=== PATIENT | female | born 1950 | race Caucasian/White ===

== ENCOUNTER 2020-06-26 21:24 | Observation (INO) | payer MEDICARE, SELFPAY ==
--- NOTE | 2020-06-26 21:20 | ECG_ITS ---
APPROVED REPORT Exam: Resting ECG HR:80 bpm ECG Measurements Heart Rate 80 AXES SC 206 P 22 QRSd 80 QRS 14 QT 378 T 30 QTc 435 Conclusion Normal sinus rhythm Nonspecific T wave abnormality Abnormal ECG Electronically signed by : Sebastian Alves, 06/28/2020 13:50:20
[2020-06-26 21:24] VITALS: BP 146/70; PULSE 74; RESP 16; TEMP 36.6; O2SAT 94; BMI 43.0
--- NOTE | 2020-06-26 21:26 | XR_ITS ---
PROCEDURE: XR CHEST 2V CLINICAL HISTORY: chest pain COMPARISON: No exams were available for comparison FINDINGS: The cardiomediastinal silhouette and pulmonary vascularity are within normal limits. The lungs are clear without infiltrates, suspicious nodules, or pleural effusions. There is mild wedging involving T8 vertebral body age indeterminate. There is loss of height anteriorly of approximately 30-40 percent IMPRESSION: MRI may provide further evaluation to determine the age of this finding. No obvious retropulsion. Otherwise negative Dictated by: Kentrell Green MD 06/27/2020 05:50 Kentrell Green MD in [place] 06/27/2020 05:50
[2020-06-26 21:35] LABS: Basophils # 0.1 K/mm3 (0-0.2); Basophils % 0.5 % (0.1-2.0); Eosinophils # 0.2 K/mm3 (0.0-0.4); Eosinophils % 1.8 % (0.1-12.0); Hematocrit 41.2 % (37.0-47.0); Hemoglobin 13.2 g/dL (12.2-16.2); Lymphocytes # 3.3 K/mm3 (0.7-4.5); Lymphocytes % 34.3 % (10-50); Mean Corpuscular HGB Conc 32.1 g/dL (31.8-35.4); Mean Corpuscular Hemoglobin 32.1 pg (27.0-31.2); Mean Platelet Volume 8.5 fl (7.4-10.4); Monocytes # 0.7 K/mm3 (0.1-1.0); Monocytes % 7.1 % (1.7-9.3); Neutrophils # 5.4 K/mm3 (1.8-7.8); Neutrophils % 56.3 % (37.0-80.0); Platelet Count 210 K/mm3 (142-424); Red Blood Count 4.12 M/mm3 (4.20-5.40); Red Cell Distribution Width 12.7 % (11.5-17.5); White Blood Count 9.6 K/mm3 (4.8-10.8)
--- NOTE | 2020-06-26 21:41 | HMH.EDCP ---
ED Disposition Clinical Impression: Renal insufficiency Chest pain Qualifiers: Chest pain type: precordial pain Qualified Code(s): R07.2 - Precordial pain Obesity Qualifiers: Obesity type: due to excess calories Obesity classification: adult class 3 (BMI >= 40) Serious obesity comorbidity presence: with serious comorbidity Body mass index: BMI 40.0-44.9 Qualified Code(s): E66.01 - Morbid (severe) obesity due to excess calories; Z68.41 - Body mass index [BMI]40.0-44.9, adult Disposition: Admitted as Observation Condition on Discharge: Good Referrals: Provider,Referral, [Referring] - - Critical Care Critical Care Time: No Attestation: On 06/26/20, the high probability of a clinically significant, sudden or life threatening deterioration of the following system(s) required my full and direct attention, intervention and personal management. The time I documented below is in addition to time spent performing reported procedures but includes the following listed in this critical care notation. Medical Decision Making - Medical Records Medical records reviewed: Yes: I reviewed the patient's medical records. - Kendrick Inquiry Pt receiving controlled substance: No Vital Signs: 06/26/20 21:24 Temperature 97.8 F Temperature Source Oral Pulse Rate [Left Radial] 74 Respiratory Rate 16 Blood Pressure [Right Arm] 146/70 H Blood Pressure Mean [Right Arm] 95 Blood Pressure Source [Right Arm] Automatic Cuff Blood Pressure Position [Right Arm] Sitting 02 Sat by Pulse Oximetry 94 L Oxygen Delivery Method Room Air - Lab Data Lab results reviewed: Yes: I reviewed the patient's lab results. Lab Results 06/26/20 21:25: WBC 9.6, RBC 4.12 L, Hgb 13.2, Hct 41.2, MCV 100.0 H, MCH 32.1 H, MCHC 32.1, RDW 12.7, Plt Count 210, MPV 8.5, Neut % (Auto) 56.3, Lymph % (Auto) 34.3, [place] % (Auto) 7.1, Eos % (Auto) 1.8, Baso % (Auto) 0.5, Neut # (Auto) 5.4, Lymph # (Auto) 3.3, [place] # (Auto) 0.7, Eos # (Auto) 0.2, Baso # (Auto) 0.1 06/26/20 21:25: Sodium 138, Potassium 4.0, Chloride 102, Carbon Dioxide 30, Anion Gap 10.0, BUN 22 H, Creatinine 1.10 H, Estimated Creat Clear 40, Estimated GFR 49 L, Est GFR ( Amer) 60, Glucose 124 H, Calcium 9.5, Troponin I < 0.01 Result diagrams: 06/26/20 21:25 06/26/20 21:25 Orders (Tests/Meds): ED MEDICATIONS Generic Name Dose Route Start Last Admin Trade Name Freq PRN Reason Stop Dose Admin Sodium Chloride 1,000 mls @ 999 mls/hr 06/26/20 21:45 06/26/20 21:43 Sod Chlor 0.9% 1000ml Bag IV 06/26/20 22:45 999 mls/hr .Q1H1M DOUGIE Administration Discontinued Medications Generic Name Dose Route Start Last Admin Trade Name Freq PRN Reason Stop Dose Admin Aspirin 243 mg 06/26/20 21:35 06/26/20 21:42 Aspirin 81mg Chewable Tablet PO 06/26/20 21:36 243 mg ONCE ONE Administration Nitroglycerin 0.4 mg 06/26/20 21:36 06/26/20 21:43 Nitroglycerin 0.4mg Sl Tablet SL 06/26/20 21:37 0.4 mg ONCE ONE Administration ORDERS Category Date Time Status XR chest 2V Stat Exams 06/26/20 21:26 Taken Troponin I Q3H Lab 06/27/20 00:30 Ordered Troponin I Q3H Lab 06/27/20 03:30 Ordered - Radiology Data #1 Image(s): Chest Image Reviewed: Yes I reviewed the patient's radiology image Preliminary Findings: Normal/NAD - ECG Data Tracing #1 Normal Sinus Rhythm: Yes Ischemic changes: non-specific ST-T wave changes - Physician Consults Physician Consulted: rachel Reason -: Admission Chest Pain HPI - General Chief Complaint: Chest Pain Stated Complaint: chest pain Time Seen by Provider: 06/26/20 21:35 Mode of Arrival: Ambulatory Source of Information: Patient, Medical Record Limitations: No Limitations Description of Symptoms (Recalled from ER Triage Doc. by RN): pt c/o chest pain for the last hour and a half. pt describes her pain as an aching sensation at the cente of her chest - History of Present Illness HPI narrative: acute onset of mi
[2020-06-26 21:44] LABS: Chloride 102 mmol/L (98-107); Sodium 138 mmol/L (136-145)
[2020-06-26 21:47] LABS: Blood Urea Nitrogen 22 mg/dl (7-17); Calcium 9.5 mg/dl (8.4-10.2); Carbon Dioxide 30 mmol/L (22.0-30.0); Creatinine Clearance Estimated 40 mL/min (50-200); Estimated Glomerular Filt Rate 49 ml/min (>60); GFR (African American) 60 ML/MIN (>60); Glucose 124 mg/dl (74-100)
[2020-06-26 22:02] VITALS: BP 96/51; PULSE 62; RESP 16; O2SAT 97
[2020-06-26 22:16] LABS: Troponin I < 0.01 ng/ml (0.00-0.034)
[2020-06-26 22:24] VITALS: BP 134/72; PULSE 84; RESP 16; O2SAT 95
--- NOTE | 2020-06-26 22:43 | PC.NURSE ---
spoke with Dr. Childress for admission
[2020-06-26 22:53] VITALS: BP 98/50; PULSE 78; RESP 16; O2SAT 94
--- NOTE | 2020-06-26 23:03 | PC.NURSE ---
Patient assigned to 210
--- NOTE | 2020-06-26 23:23 | PC.NURSE ---
report given to RENNY Walker
--- NOTE | 2020-06-26 23:36 | PC.NURSE ---
patient up to floor via wheelchair
[2020-06-26 23:44] LABS: Coronavirus 19 IgG Antibody Negative (Negative); Coronavirus 19 IgM Antibody Negative (Negative)
[2020-06-26 23:55] VITALS: BP 98/53; PULSE 78; RESP 16; TEMP 36.6; O2SAT 98
[2020-06-27] VITALS (22 sets, daily range): BP systolic 86–146; BP diastolic 53–72; PULSE 53–71; RESP 16–20; TEMP 36.5–36.9; O2SAT 92–100; BMI 43.3
--- NOTE | 2020-06-27 | IR_ITS ---
APPROVED REPORT Patient Location: Inpatient [place]: LEAH Arriola RT (R) PROCEDURES Left heart catheterization Left ventriculogram Selective coronary angiogram INDICATION Unstable angina Informed consent was obtained prior to the procedure. COMPLICATIONS None Estimated Blood Loss: less than 10ml TECHNIQUE One percent lidocaine used to anesthetize the right anterior aspect of the wrist. The right radial artery was accessed via the Seldinger technique. A 6 Pashto sheath was placed in the right radial artery. 2.5 mg of verapamil, 800 mcg of nitroglycerin, 1mg Lidocaine and 5000 U Heparin were given through the arterial sheath. The trap catheter was also used to perform left heart catheterization, left ventriculogram and selective coronary angiogram. At the end of the procedure the sheath was removed good hemostasis was achieved using Traclet band, patient was transferred to the postop holding area in stable condition. ANGIOGRAPHIC RESULTS The left main artery Normal The left anterior descending artery Has mild 10% diffuse luminal irregularities The circumflex artery Nondominant with mild 10% luminal irregularities The right coronary artery Dominant with mild proximal 10 to 20% stenosis The HODGSON ventriculogram reveals Normal 65% The left ventricular end-diastolic pressure 10 mmHg IMPRESSION Mild [id number] coronary disease Normal ejection fraction Normal left ventricular end-diastolic pressure PLAN 1. Medical management Electronically signed by : Byron Damon, 06/27/2020 14:12:30
[2020-06-27 01:19] LABS: Troponin I < 0.01 ng/ml (0.00-0.034)
--- NOTE | 2020-06-27 03:15 | PC.NURSE ---
pt A&OX4. lungs CTA pt denies SOA or pain since arriving to floor. NSR on tele. 2+ pitting edema to BLE. pt ambulates independently to BR.
[2020-06-27 03:59] LABS: Troponin I < 0.01 ng/ml (0.00-0.034)
[2020-06-27 06:52] LABS: Basophils # 0.1 K/mm3 (0-0.2); Basophils % 0.8 % (0.1-2.0); Eosinophils # 0.1 K/mm3 (0.0-0.4); Hematocrit 39.4 % (37.0-47.0); Hemoglobin 12.6 g/dL (12.2-16.2); Lymphocytes # 2.4 K/mm3 (0.7-4.5); Mean Corpuscular HGB Conc 31.9 g/dL (31.8-35.4); Mean Corpuscular Volume 100.4 fl (81-99); Mean Platelet Volume 8.3 fl (7.4-10.4); Monocytes # 0.4 K/mm3 (0.1-1.0); Monocytes % 6.4 % (1.7-9.3); Neutrophils # 3.4 K/mm3 (1.8-7.8); Neutrophils % 53.8 % (37.0-80.0); Platelet Count 202 K/mm3 (142-424); Red Blood Count 3.92 M/mm3 (4.20-5.40); Red Cell Distribution Width 12.7 % (11.5-17.5); White Blood Count 6.4 K/mm3 (4.8-10.8)
[2020-06-27 06:58] LABS: Chloride 106 mmol/L (98-107); Sodium 140 mmol/L (136-145)
[2020-06-27 07:01] LABS: Blood Urea Nitrogen 19 mg/dl (7-17); Carbon Dioxide 30 mmol/L (22.0-30.0); Cholesterol 153 mg/dl (140-200); Creatinine Clearance Estimated 44 mL/min (50-200); Estimated Glomerular Filt Rate 55 ml/min (>60); GFR (African American) 67 ML/MIN (>60); Triglycerides 167 mg/dl (30-150); VLDL Cholesterol 33 mg/dL (0-40)
[2020-06-27 07:02] LABS: Chol/HDL Ratio 2.9 (1-3.5); Glucose 100 mg/dl (74-100); HDL Cholesterol 53 mg/dl (40-60); Magnesium 2.2 mg/dl (1.6-2.3)
--- NOTE | 2020-06-27 07:30 | PC.NURSE ---
ALL CHARTING AND CARE DONE UNDER MY DIRECT SUPERVISION
--- NOTE | 2020-06-27 07:46 | PC.NURSE ---
Radiology at bedside for echo
--- NOTE | 2020-06-27 08:00 | CA_ITS ---
APPROVED REPORT EXAM: Comprehensive 2D, Doppler, and color-flow Echocardiogram Counterperson: Shyanne Batista RDCS Ht: 5 ft 3 in Wt: 243lbs BSA: 2.10 BP: 146/70 mmHg Indications: CP,MURMUR,OBESITY 2D Dimensions LVOT 2.41 cm (M/F) 1.5-2.5 M-Mode Dimensions RVDd 3.33 cm (0.9-2.6) LVDd 5.22 cm (3.5-5.7) LVDs 4.03 cm (3.5-5.7) IVSd 0.93 cm (0.6-1.1) PWd 0.85 cm (0.6-1.1) EF (Teich) 45.40% FS 22.80% EDV (Teich) 130.70 mL ESV (Teich) 71.30 mL LV Diastology E/A Ratio 0.78 Aortic Valve LVOT Max 104.00 (70-110 cm/s) LVOT VTI 24.81 cm Mitral Valve MV A Velocity 187.00 (40-130 cm/s) MV Mean Gr. 5.40 (<2mmHg) MV PHT 167.00 ms Left Ventricle Technically difficult study because of the patient factors and poor acoustic Windows. Left atrium is moderately enlarged, left ventricle is normal size, mild concentric left ventricular hypertrophy, visually estimated ejection fraction 55% with no regional wall motion abnormality, diastolic parameters consistent with grade 1, with increased left atrial pressure. Right Ventricle Right atrium right ventricle moderately enlarged with normal contractility. Aortic Valve Aortic valve is thickened and calcified leaflet chordae display mobility, there is no aortic stenosis, there is mild aortic insufficiency. Mitral Valve Mitral valve leaflets are not well visualized, there is restriction to leaflet mobility, the mean gradient across mitral valve is 5.4 mmHg, valve area is 1.4 cm??? by pressure half-time represents moderate mitral stenosis, there is mildly mitral regurgitation, a transesophageal echocardiogram is recommended to evaluate the mitral valve morphology and degree of mitral stenosis. Tricuspid Valve Tricuspid valve grossly normal, there is mild tricuspid regurgitation, tricuspid regurgitation jet velocity is inadequate for calculation of the right ventricular systolic pressure. Pulmonic Valve Pulmonic valve is poorly visualized. Great Vessels Aortic root is normal size. Pericardium No significant pericardial effusion noted. Conclusion 1. Biatrial enlargement, normal left ventricular size, mild concentric left ventricular hypertrophy, visually estimated ejection fraction 55% with no regional wall motion abnormality, grade 1 diastolic dysfunction seen with tissue Doppler evidence of raise left atrial pressure. 2. Moderately enlarged right ventricle with normal contractility. 3. Thickened and calcified aortic valve without aortic stenosis, there is mild aortic insufficiency. 4. Mitral valve morphology is not well visualized, mitral valve area is 1.4 cm??? represents at least moderate mitral stenosis, there is mild mitral regurgitation, a transesophageal echocardiogram is recommended. 5. Mild tricuspid regurgitation, tricuspid regurgitation jet velocity is inadequate for calculation of the right ventricular systolic pressure. 6. No significant pericardial effusion noted. Electronically signed by : Anil Wilkerson, 06/27/2020 14:47:31
--- NOTE | 2020-06-27 08:10 | HMH.PHAVTE ---
[facility] Pharmacy VTE Monitoring - Patient Demographics Admission date: 06/27/20 Report Date: 06/27/20 Time: 08:10 Allergies/Adverse Reactions: Patient Allergies codeine [CODEINE] Allergy (Unknown, Verified 06/26/20 21:25) I-RASH Sulfa (Sulfonamide Antibiotics) [SULFA (SULFONAMIDE ANTIBIOTICS)] Allergy (Unknown, Verified 06/26/20 21:25) I-RASH Height: 1.6 m Weight: 110.9 kg Patient Problems: Current Active Problems Chest pain (Acute) Obesity (Acute) Renal insufficiency (Acute) - VTE Risk Labs: VTE Related Lab Results Hgb 12.6 g/dL (12.2-16.2) 06/27/20 06:05 Hct 39.4 % (37.0-47.0) 06/27/20 06:05 Plt Count 202 K/mm3 (142-424) 06/27/20 06:05 BUN 19 mg/dl (7-17) H 06/27/20 06:05 Creatinine 1.00 mg/dl (0.52-1.04) 06/27/20 06:05 Estimated Creat Clear 44 mL/min (50-200) 06/27/20 06:05 Was VTE Risk Assessment Performed: Yes VTE Score: 2 VTE Risk Level: Very Low Risk Clinical Trial Participant: No - Prophylaxis VTE Prophylaxis Ordered?: Yes Types of VTE Prophylaxis: TEDS Knee High
[2020-06-27 09:05] LABS: Thyroid Stimulating Hormone 3.93 uIU/mL (0.465-4.68)
--- NOTE | 2020-06-27 09:06 | HMH.CNCARD ---
History of Present Illness Consult date: 06/27/20 Requesting physician: Lorena Childress Consult reason: chest pain Chief complaint: chest pain Additional Medical History:: 1. Hypertension 2. History of rheumatic fever x2 3. Known cardiac murmur 4. Accelerating angina pectoris, 06/2020 5. Hyperlipidemia 6. History of pin stroke 7. Hypothyroidism, on replacement therapy History of present illness: 69-year-old white female with hypertension, hyperlipidemia and remote stroke presented to the emergency department at the advice of her family physician for further evaluation of chest pain. Patient describes a 1 to 2-month history of exertional upper shoulder and neck discomfort that would resolve after prolonged rest. Symptoms have progressed to include chest discomfort culminating in symptoms yesterday that prompted evaluation in the ER. Patient describes her chest discomfort as a heaviness or pressure type sensation anteriorly and rates it as a 7 out of 10 that resolved very quickly after nitroglycerin in the ER. EKG is sinus rhythm and troponins of normal x3. She reportedly has been in the process of getting a cardiac work-up in [facility] but has not had that completed. Cardiology consulted for evaluation recommendation [facility] History Medical History: Reports:: Heart Murmur, Hyperlipidemia, Hypertension Denies:: Cancer, Diabetes Mellitus Type 1, Diabetes Mellitus Type 2, MRSA *Have you ever received a pneumonia vaccine?: Yes *Have you received a flu vaccine this season?: Yes Other Medical History: Reports: Hypothyroidism, Thyroid Disease Other Surgeries: Yes: Tubal Ligation Amputation: No - *Social History Last grade of school completed: High school graduate Smoking Status: Never smoker Alcohol Intake: never *Occupational Status:: retired Housing: house Household Members: spouse *Travel in the last 8 weeks: None Family Hx:: Diabetes, Heart Attack, Hypertension, Stroke Meds Home Medications Medication Instructions Recorded Confirmed Type Amlodipine Besylate [Amlodipine 5 mg PO DAILY 06/26/20 06/26/20 History 5mg tab] Aspirin [Aspirin 81mg EC Tab] 81 mg PO DAILY 06/26/20 06/26/20 History Garlic [Odorless Garlic] 300 mg PO DAILY 06/26/20 06/26/20 History Levothyroxine Sodium 50 mcg PO DAILY 06/26/20 06/26/20 History [Levothyroxine 50mcg (0.05mg) Tab] Lovastatin 40 mg PO DAILY 06/26/20 06/26/20 History Metoprolol Succinate [Metoprolol 50 mg PO DAILY 06/26/20 06/26/20 History Succinate 50mg Tablet*] [place]-3 Fatty Acids/Fish Oil [Fish 1 each PO DAILY 06/26/20 06/26/20 History Oil 1,000 mg Capsule] hydroCHLOROthiazide 12.5 mg PO DAILY 06/26/20 06/26/20 History [Hydrochlorothiazide 12.5mg Tab] lisinopriL [Lisinopril 40mg Tablet] 40 mg PO DAILY 06/26/20 06/26/20 History Allergies Allergy/AdvReac Type Severity Reaction Status Date / Time codeine [CODEINE] Allergy Unknown I-RASH Verified 06/26/20 21:25 Sulfa (Sulfonamide Allergy Unknown I-RASH Verified 06/26/20 21:25 Antibiotics) [SULFA (SULFONAMIDE ANTIBIOTICS)] Exam Vital signs and Labs for Last 24 Hours: Temp Pulse Resp BP Pulse Ox 97.7 F 63 17 128/71 98 06/27/20 07:54 06/27/20 07:54 06/27/20 07:54 06/27/20 07:54 06/27/20 07:54 Laboratory Results - last 24 hr 06/26/20 21:25: WBC 9.6, RBC 4.12 L, Hgb 13.2, Hct 41.2, MCV 100.0 H, MCH 32.1 H, MCHC 32.1, RDW 12.7, Plt Count 210, MPV 8.5, Neut % (Auto) 56.3, Lymph % (Auto) 34.3, [place] % (Auto) 7.1, Eos % (Auto) 1.8, Baso % (Auto) 0.5, Neut # (Auto) 5.4, Lymph # (Auto) 3.3, [place] # (Auto) 0.7, Eos # (Auto) 0.2, Baso # (Auto) 0.1 06/26/20 21:25: Sodium 138, Potassium 4.0, Chloride 102, Carbon Dioxide 30, Anion Gap 10.0, BUN 22 H, Creatinine 1.10 H, Estimated Creat Clear 40, Estimated GFR 49 L, Est GFR ( Amer) 60, Glucose 124 H, Calcium 9.5, Troponin I < 0.01 06/26/20 21:25: SARS-CoV-2 IgG Ab (Rapid) Negative, SARS-CoV-2 IgM Ab (Rapid)
--- NOTE | 2020-06-27 09:51 | HMH.HP ---
*Admission Date: 06/27/20 *Chief complaint: Chest pain *History of present illness: This 69-year-old white female is a patient of Dr. Ambrose in [place]. She developed chest pain last night which lasted from 7:30 PM to about 10:00. She talked to Dr. Gonzalez who recommended that she come to the emergency room. She was supposed to have a cardiac work-up at [facility] but her chest pain last night preempted this. She describes her pain last night is midsternal pressure heavy with nausea but no vomiting. She was not short of breath. She did not have referral of the pain to the neck or jaw. She did not have diaphoresis. She has a very strong family history of heart disease. She is not a smoker. She is hypothyroid. She is admitted and has been seen by cardiology. She has agreed to cardiac catheterization at [facility]. [facility] History Medical History: Reports:: Heart Murmur, Hepatitis (Hepatitis A), Hyperlipidemia, Hypertension Denies:: Cancer, Diabetes Mellitus Type 1, Diabetes Mellitus Type 2, MRSA, Myocardial Infarction *Have you ever received a pneumonia vaccine?: Yes *Have you received a flu vaccine this season?: Yes Other Medical History: Reports: Cataracts, Hypothyroidism, Thyroid Disease Other Surgeries: Yes: Cholecystectomy, Tubal Ligation Amputation: No - *Social History Last grade of school completed: High school graduate Smoking Status: Never smoker Alcohol Intake: never *Occupational Status:: retired Housing: house Household Members: spouse *Travel in the last 8 weeks: None Family Hx:: Cancer (Sister of lung cancer brother of throat cancer), Coronary Artery Disease (Sister and brother both with heart disease.), Diabetes, Heart Attack, Hypertension, Stroke, Other (Father of cirrhosis of the liver. 1 son has had a heart attack), no Asthma (Mother with emphysema) : 2 Para: 2 Review of Systems - Constitutional Reports lack of energy, Denies body ache(s), Denies chills, Denies weight gain, Denies weight loss - Eyes Reports blurry vision (Cataracts) - ENT Denies neck lump - *Cardiovascular Reports chest pain, Denies rapid, pounding, or irregular heartbeat, Denies radiating jaw, neck or arm pain - *Respiratory Denies chest congestion - *Gastrointestinal Reports loose stools, Reports incontinent of stools - *Genitourinary Reports frequent nighttime urination, Reports urinary incontinence - *Musculoskeletal Reports joint pain, Reports other Comments: Past injury to the right index finger. - *Neurologic Denies seizure-like activity - Hematologic/Lymphatic Denies easy bruising Meds Home Medications Medication Instructions Recorded Confirmed Type Amlodipine Besylate [Amlodipine 5 mg PO DAILY 06/26/20 06/26/20 History 5mg tab] Aspirin [Aspirin 81mg EC Tab] 81 mg PO DAILY 06/26/20 06/26/20 History Garlic [Odorless Garlic] 300 mg PO DAILY 06/26/20 06/26/20 History Levothyroxine Sodium 50 mcg PO DAILY 06/26/20 06/26/20 History [Levothyroxine 50mcg (0.05mg) Tab] Lovastatin 40 mg PO DAILY 06/26/20 06/26/20 History Metoprolol Succinate [Metoprolol 50 mg PO DAILY 06/26/20 06/26/20 History Succinate 50mg Tablet*] [place]-3 Fatty Acids/Fish Oil [Fish 1 each PO DAILY 06/26/20 06/26/20 History Oil 1,000 mg Capsule] hydroCHLOROthiazide 12.5 mg PO DAILY 06/26/20 06/26/20 History [Hydrochlorothiazide 12.5mg Tab] lisinopriL [Lisinopril 40mg Tablet] 40 mg PO DAILY 06/26/20 06/26/20 History Allergies Allergy/AdvReac Type Severity Reaction Status Date / Time codeine [CODEINE] Allergy Unknown I-RASH Verified 06/26/20 21:25 Sulfa (Sulfonamide Allergy Unknown I-RASH Verified 06/26/20 21:25 Antibiotics) [SULFA (SULFONAMIDE ANTIBIOTICS)] Exam Vital signs and Labs for Last 24 Hours: Temp Pulse Resp BP Pulse Ox 97.7 F 63 17 128/71 98 06/27/20 07:54 06/27/20 07:54 06/27/20 07:54 06/27/20 07:54 06/27/20 08:3
--- NOTE | 2020-06-27 10:24 | HMH.PHAINT ---
MEDICATION RECONCILIATION COMPLETED ON PATIENT USING EXTERNAL FILL HISTORY FROM PHARMACY. -MARIA T HARRIS, ERID
--- NOTE | 2020-06-27 13:45 | PC.NURSE ---
OFF UNIT TO PASSENGER SCREENER
--- NOTE | 2020-06-27 14:35 | PC.NURSE ---
PATIENT UP TO THE FLOOR AT THIS TIME. FLAT IN BED. NO DISTRESS NOTED. IV INFUSING. RIGHT DEVICE ON RIGHT HAND NOTED. NO BRUISING OR SWELLING.
--- NOTE | 2020-06-27 16:10 | PC.NURSE ---
Patient had heart cath this afternoon. Vitals stable post procedure and still monitoring. Lungs clear bilaterally in all [place] and bowel sounds normoactive. Edema present in lower extremities, +2 pitting but no change since morning assessment.
--- NOTE | 2020-06-27 17:35 | PC.NURSE ---
DIAL AND WRISTLET REMOVED AT THIS TIME. STERILE DRESSING APPLIED. NO BLEEDING NOW. MINIMAL BLEEDING NOTED AROUND HANDS. PULSES 2+ AND CAP REFLIX <3
[2020-06-28] VITALS: BP 103/51; PULSE 55; PULSE 63; RESP 16; TEMP 36.5; O2SAT 94
[2020-06-28 03:54] VITALS: BP 113/58; PULSE 61; RESP 16; TEMP 36.7; O2SAT 93
--- NOTE | 2020-06-28 03:56 | PC.NURSE ---
shift summary, no acute changes since prior assessment, pt has rested well t/o shift, no complaints of chest pain, SOA, N/V or diaphoresis, pt systolic BP has remained between 102-113, HR from 61-71, pt has ambulated to BR without complaint
[2020-06-28 04:00] VITALS: PULSE 60
[2020-06-28 05:01] VITALS: BMI 43.4
--- NOTE | 2020-06-28 07:57 | P.PN_ITS ---
Subjective Date: 06/28/20 Time: 07:57 Principal diagnosis: Moderate mitral stenosis Interval history: 69-year-old white female in bed in no acute distress. Denies any chest pain, pressure or tightness. Exam Vital signs and Labs for Last 24 Hours: Temp Pulse Resp BP Pulse Ox 98.0 F 60 16 113/58 L 93 L 06/28/20 03:54 06/28/20 04:00 06/28/20 03:54 06/28/20 03:54 06/28/20 03:54 Laboratory Results - last 24 hr 06/27/20 06:05: TSH 3.93 I & O for Last 24 hours: Intake & Output 06/25/20 06/26/20 06/27/20 06/28/20 11:59 11:59 11:59 11:59 Intake Total 1260 / 1260 875 / 875 Balance 1260 / 1260 875 / 875 Weight 244 lb 7.882 oz 245 lb 2.464 oz - *Routine HEENT Exam Head: Present: normocephalic Eye: Present: EOMI, PERRL ENT: Present: mucous membranes moist - *Routine Respiratory Exam Present: CTA bilaterally - *Routine Cardiovascular Exam Present: RRR, murmur - *Routine Extremities Exam Absent: cyanosis, clubbing, edema - *Routine Neurological Exam Present: alert, oriented X3 Progress Note: A&P (1) Accelerating angina Status: Acute (2) Hypertension Status: Acute (3) Hyperlipidemia Status: Acute (4) Remote history of stroke Status: Acute (5) Cardiac murmur, unspecified Status: Acute (6) Mitral valve stenosis, moderate Status: Acute Assessment and Plan for All Diagnoses:: Patient stable from a cardiac standpoint for discharge home when appropriate by PCP. Follow-up in our office in [address] PARKS to discuss scheduling of transeso phageal echocardiogram. Home medication recommendations: Aspirin 81 mg daily Lisinopril 40 mg daily Hydrochlorothiazide 25 mg daily Metoprolol succinate XL 50 mg daily Pravastatin 40 mg daily
[2020-06-28 08:00] VITALS: BP 122/67; PULSE 68; PULSE 70; RESP 18; TEMP 36.5; O2SAT 96
--- NOTE | 2020-06-28 09:29 | HMH.ACPN2 ---
Internal Medicine - PN: Subj *Date: 06/28/20 *Time: 09:29 Interval history: She is well. See the cath report. See the cardiology report. Cardiology recommends discharge with follow-up. There was no stent placed. Coronaries showed noncritical disease. It was also recommended that she discontinue amlodipine and increase hydrochlorothiazide. Exam Vital signs and Labs for Last 24 Hours: Temp Pulse Resp BP Pulse Ox 97.7 F 68 18 122/67 96 06/28/20 08:00 06/28/20 08:00 06/28/20 08:00 06/28/20 08:00 06/28/20 08:00 I & O for Last 24 hours: Intake & Output 06/25/20 06/26/20 06/27/20 06/28/20 11:59 11:59 11:59 11:59 Intake Total 1260 / 1260 1235 / 1235 Balance 1260 / 1260 1235 / 1235 Weight 244 lb 7.882 oz 245 lb 2.464 oz - Constitutional no acute distress - *Routine HEENT Exam Head: Present: normocephalic Eye: Present: PERRL - *Routine Respiratory Exam Present: CTA bilaterally - *Routine Cardiovascular Exam Present: RRR - *Routine Abdominal Exam Present: soft, obese. Absent: tenderness - *Routine Extremities Exam Present: edema Assessment and Plan (1) Accelerating angina Status: Acute Category: Medical Code(s): I20.0 - Unstable angina (2) Hypertension Status: Acute Category: Medical Code(s): I10 - Essential (primary) hypertension (3) Hyperlipidemia Status: Acute Category: Medical Code(s): E78.5 - Hyperlipidemia, unspecified (4) Remote history of stroke Status: Acute Category: Medical Code(s): Z86.73 - Personal history of transient ischemic attack (TIA), and cerebral infarction without residual deficits (5) Cardiac murmur, unspecified Status: Acute Category: Medical Code(s): R01.1 - Cardiac murmur, unspecified (6) Mitral valve stenosis, moderate Status: Acute Category: Medical Code(s): I05.0 - Rheumatic mitral stenosis - Assessment and plan all Dx Assessment and Plan for all problems:: See med list. The patient will be discharged today. She is to follow-up with Dr. PARKS in 1 week. I recommended that she contact her primary care provider today to arrange for follow-up with her.
--- NOTE | 2020-06-29 08:45 | HMH.DCSUM ---
General - General Admission date:: 06/26/20 Discharge date: 06/28/20 HPI HPI: This 69-year-old white female is a patient of Dr. Ambrose in [place]. She developed chest pain which lasted from 7:30 PM to about 10:00. She talked to Dr. Gonzalez who recommended that she come to the emergency room. She was supposed to have a cardiac work-up at [facility] but her chest pain last night preempted this. She described her pain as midsternal pressure heavy with nausea but no vomiting. She was not short of breath. She did not have referral of the pain to the neck or jaw. She did not have diaphoresis. Shewas noted to have a very strong family history of heart disease. She was not a smoker. She was hypothyroid. She was admitted and was seen by cardiology. She agreed to have a cardiac catheterization at [facility]. Hospital Course Hospital Course: After admission patient had no further chest pain, pressure or tightness. Cardiology did see patient and followed her throughout her stay. She had a cardiac catheterization which showed noncritical disease recommending medical management. Also recommended was the discontinuation of amlodipine and to increase hydrochlorothiazide. Echocardiogram revealed moderate mitral valve stenosis. The plan was to follow-up in the cardiology office in 1 week to discuss scheduling of a transesophageal echocardiogram. On 06/28/2020 patient was stable for discharge and was discharged to home in stable and satisfactory condition with follow-up with cardiology in 1 week. She was to maintain a low-fat low-cholesterol diet. Medications as per medication reconciliation sheet. Objective Vital signs: Temp Pulse Resp BP Pulse Ox 97.7 F 68 18 122/67 96 06/28/20 08:00 06/28/20 08:00 06/28/20 08:00 06/28/20 08:00 06/28/20 08:00 Narrative: Exam Vital signs and Labs for Last 24 Hours: Temp Pulse Resp BP Pulse Ox 97.7 F 68 18 122/67 96 06/28/20 08:00 06/28/20 08:00 06/28/20 08:00 06/28/20 08:00 06/28/20 08:00 I & O for Last 24 hours: Intake & Output 10/06/20 10/07/20 10/08/20 10/09/20 11:59 11:59 11:59 11:59 Intake Total 1260 / 1260 1235 / 1235 Balance 1260 / 1260 1235 / 1235 Weight 244 lb 7.882 oz 245 lb 2.464 oz - Constitutional no acute distress - *Routine HEENT Exam Head: Present: normocephalic Eye: Present: PERRL - *Routine Respiratory Exam Present: CTA bilaterally - *Routine Cardiovascular Exam Present: RRR - *Routine Abdominal Exam Present: soft, obese. Absent: tenderness - *Routine Extremities Exam Present: edema Results Completed studies during hospitalization [Text1]: 06/26/2020 CXR FINDINGS: The cardiomediastinal silhouette and pulmonary vascularity are within normal limits. The lungs are clear without infiltrates, suspicious nodules, or pleural effusions. There is mild wedging involving T8 vertebral body age indeterminate. There is loss of height anteriorly of approximately 30-40 percent IMPRESSION: MRI may provide further evaluation to determine the age of this finding. No obvious retropulsion. Otherwise negative 06/27/2020 ECHOConclusion 1. Biatrial enlargement, normal left ventricular size, mild concentric left ventricular hypertrophy, visually estimated ejection fraction 55% with no regional wall motion abnormality, grade 1 diastolic dysfunction seen with tissue Doppler evidence of raise left atrial pressure. 2. Moderately enlarged right ventricle with normal contractility. 3. Thickened and calcified aortic valve without aortic stenosis, there is mild aortic insufficiency. 4. Mitral valve morphology is not well visualized, mitral valve area is 1.4 cm??? represents at least moderate mitral stenosis, there is mild mitral regurgitation, a transesophageal echocardiogram is recommended. 5. Mild tricuspid regurgitation, tricuspid regurgitation jet ve
== END 2020-06-28 09:25 | disposition home or self-care (01) ==
LOC: ER 22:41 → 2ND 06-27 00:12
PROVIDERS: Internal Medicine; Admitting Provider Family Medicine; Emergency Provider Emergency Medicine; PCP Family Medicine; Visit Provider Family Medicine
DX: I25.110 Atherosclerotic heart disease of native coronary artery with unstable angina pectoris (principal); I10 Essential (primary) hypertension; E03.9 Hypothyroidism, unspecified; Z79.82 Long term (current) use of aspirin; Z79.899 Other long term (current) drug therapy; Z88.2 Allergy status to sulfonamides; Z88.5 Allergy status to narcotic agent; I05.0 Rheumatic mitral stenosis
CPT/HCPCS: 36415; 71046; 80048; 80061; 83735; 84443; 84484; 85025; 86328; 93005; 93306; 93458; 96365; 99152; 99284; C1725; C1769; G0378; J1644; Q9967

== ENCOUNTER 2020-07-11 12:53 | Day surgery (SDC) | payer MEDICARE, SELFPAY ==
[2020-07-11 12:59] VITALS: BMI 42.8
--- NOTE | 2020-07-11 13:10 | CA_ITS ---
APPROVED REPORT EXAM: Comprehensive 2D, Doppler, and color-flow Echocardiogram Stone Rigger: Shyanne Batista RDCS Ht: 5 ft 3 in Wt: 243lbs BSA: 2.10 Indications: LAUREN MS AI Procedure After obtaining informed consent, patient underwent transesophageal echo in the [employer]. Type of Sedation : Conscious Sedation Sedation was administered by Saúl MujicaNKaleigh. Transesophageal probe was inserted and advanced into esophagus without difficulty by Dr. Norma Feldman. The LAUREN was performed without complications. Throughout the procedure, the blood pressure, pulse oximetry, cardiac rhythm, and rate were monitored. The patient tolerated the procedure without adverse effects. Recovery from conscious sedation was uneventful and vital signs were stable. Left Ventricle Left ventricle is normal size, visually estimated ejection fraction 55% with no regional wall motion abnormality. In the obtained views. Right Ventricle Right ventricle is qualitatively mildly enlarged with normal contractility. Atria Left atrium is moderately enlarged, left atrial appendage free of thrombus. There is good appendage flow by spectral Doppler. Right atrium is mildly enlarged. Intra-atrial septum is intact, there is no flow across the interatrial septum, agitated saline contrast study fails 25 intracardiac shunt. Aortic Valve Aortic valve is thickened and calcified, with mild restriction in the leaflet mobility, there is no significant aortic stenosis, there is mild aortic insufficiency. 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 There is restriction in the leaflet mobility, the mean gradient across mitral valve is 7 mmHg, valve area calculated by pressure half-time is 1.6 cm???, this represents at least moderate mitral stenosis, there is moderate mitral regurgitation, there is blunting of the systolic forward flow seen in the pulmonary vein. Tricuspid Valve Tricuspid valve is grossly normal, there is mild tricuspid regurgitation. Pulmonic Valve Pulmonic valve is grossly normal. Great Vessels Aortic root is normal size. Ascending, arch descending thoracic aorta there is no aneurysm or dissection. Pericardium No significant pericardial effusion noted. Conclusion 1. Moderately enlarged left atrium, normal left ventricular size, visually estimated ejection fraction 55% with no regional wall motion abnormality. 2. Abnormal mitral valve as described above mean gradient across valve is 7 mmHg, valve area is 1.6 cm??? likely represents moderate mitral stenosis, there is moderate mitral regurgitation. 3. Mildly enlarged right ventricle with normal contractility. 4. Thickened and calcified aortic valve without significant aortic stenosis, there is mild aortic insufficiency. 5. Agitated saline contrast study fails to identify intracardiac shunt. 6. No significant pericardial effusion noted. Electronically signed by : Anil Wilkerson, 07/11/2020 16:38:52
[2020-07-11 13:21] VITALS: BP 137/75; PULSE 77; RESP 16; TEMP 36.8; O2SAT 100
[2020-07-11 13:26] VITALS: PULSE 72
[2020-07-11 13:52] VITALS: BP 129/75; PULSE 67; RESP 16; O2SAT 97
[2020-07-11 14:00] VITALS: BP 129/75; PULSE 60; RESP 16; O2SAT 100
[2020-07-11 14:01] LABS: Coronavirus 19 IgG Antibody Negative (Negative); Coronavirus 19 IgM Antibody Negative (Negative)
--- NOTE | 2020-07-11 14:10 | HMH.ANESCL ---
[facility] Anesthesia Checklist - Patient Identification Patient Identification: Arm Band, Verbal (Name & ) - Structural Data Admitted From: Home Planned Operative Procedure/s: LAUREN Consent for Planned Operative Procedure(s) Verified: Yes Verified Documents: Surgical Consent, History and Physical - NPO Status Verified Time NPO: 00:00 - Chart Verification Results Verified: CBC, BMP - Additional verifications Anesthesia Reactions: No - Airway Assessment C-Spine Mobility Assessed: Yes TMJ Mobility Assessed: Yes Dentition: Edentulous - Neurological Assessment Level of Consciousness: Awake, Alert, Appropriate, Follows Commands Hx Seizures: No Numbness or tingling in extremities: No - Anesthesia Plan Anesthesia Risk discussed: Yes Anesthesia Plan: Verified ASA Class: III Anesthesia Type: MAC [facility] History I have reviewed the patient's past medical history: Yes Medical History: Reports:: Heart Murmur, Hepatitis, Hyperlipidemia, Hypertension, Transient Ischemic Attacks (TIA) Denies:: Cancer, Diabetes Mellitus Type 1, Diabetes Mellitus Type 2, MRSA, Myocardial Infarction, Seizures *Have you ever received a pneumonia vaccine?: No *Have you received a flu vaccine this season?: No Other Medical History: Reports: Cataracts, Hypothyroidism, Thyroid Disease, Other (Rheumatic Fever x2 as child) Comment:: morbid obesity Anesthesia experience/problems:: None Other Surgeries: Yes: Cardiac Catheterization, Cholecystectomy, Tubal Ligation Amputation: No - *Social History Last grade of school completed: High school graduate Smoking Status: Never smoker Alcohol Intake: never Substance Use Type: denies use *Occupational Status:: retired Housing: house Household Members: spouse *Travel in the last 8 weeks: None Family Hx:: Cancer (Sister of lung cancer brother of throat cancer), Coronary Artery Disease (Sister and brother both with heart disease.), Diabetes, Heart Attack, Hypertension, Stroke, Other (Father of cirrhosis of the liver. 1 son has had a heart attack), no Asthma (Mother with emphysema)
[2020-07-11 14:15] VITALS: BP 122/63; PULSE 62; RESP 16; O2SAT 100
[2020-07-11 14:31] VITALS: BP 122/63; PULSE 70; RESP 16; O2SAT 97
== END 2020-07-11 15:03 | disposition home or self-care (01) ==
LOC: CATHLAB 12:58
PROVIDERS: PCP Family Medicine; Visit Provider Internal Medicine Cardiovascular Disease
DX: E78.5 Hyperlipidemia, unspecified (principal); I05.0 Rheumatic mitral stenosis; I10 Essential (primary) hypertension; I25.10 Atherosclerotic heart disease of native coronary artery without angina pectoris; I35.1 Nonrheumatic aortic (valve) insufficiency; R01.1 Cardiac murmur, unspecified; R93.1 Abnormal findings on diagnostic imaging of heart and coronary circulation
CPT/HCPCS: 86328; 93312

== ENCOUNTER → 2020-07-17 14:56 | Outpatient (CLI) | payer MEDICARE, SELFPAY ==
[2020-07-17 15:24] LABS: Basophils # 0.1 K/mm3 (0-0.2); Basophils % 0.6 % (0.1-2.0); Eosinophils # 0.2 K/mm3 (0.0-0.4); Eosinophils % 1.9 % (0.1-12.0); Hematocrit 41.7 % (37.0-47.0); Hemoglobin 13.8 g/dL (12.2-16.2); Lymphocytes # 2.5 K/mm3 (0.7-4.5); Lymphocytes % 27.9 % (10-50); Mean Corpuscular HGB Conc 33.2 g/dL (31.8-35.4); Mean Corpuscular Volume 99.6 fl (81-99); Mean Platelet Volume 8.3 fl (7.4-10.4); Monocytes # 0.7 K/mm3 (0.1-1.0); Monocytes % 7.5 % (1.7-9.3); Neutrophils # 5.6 K/mm3 (1.8-7.8); Neutrophils % 62.1 % (37.0-80.0); Platelet Count 208 K/mm3 (142-424); Red Blood Count 4.19 M/mm3 (4.20-5.40); Red Cell Distribution Width 13.2 % (11.5-17.5); White Blood Count 9.1 K/mm3 (4.8-10.8)
[2020-07-17 15:39] LABS: Chloride 102 mmol/L (98-107); Potassium 4.5 mmoL/L (3.5-5.1); Sodium 141 mmol/L (136-145)
[2020-07-17 15:42] LABS: Anion Gap 12.5 mEq/L (5-15); Blood Urea Nitrogen 29 mg/dl (7-17); Calcium 9.3 mg/dl (8.4-10.2); Carbon Dioxide 31 mmol/L (22.0-30.0); Estimated Glomerular Filt Rate 49 ml/min (>60); GFR (African American) 60 ML/MIN (>60); Glucose 114 mg/dl (74-100)
[2020-07-17 18:29] LABS: Coronavirus 19 IgG Antibody Positive (Negative); Coronavirus 19 IgM Antibody Negative (Negative)
== END ==
PROVIDERS: Visit Provider Internal Medicine
DX: Z01.818 Encounter for other preprocedural examination (principal); I50.30 Unspecified diastolic (congestive) heart failure
CPT/HCPCS: 36415; 80048; 85025; 86328

== ENCOUNTER 2020-07-18 08:54 | Day surgery (SDC) | payer MEDICARE, SELFPAY ==
[2020-07-18] VITALS (8 sets, daily range): BP systolic 113–126; BP diastolic 59–80; PULSE 53–70; RESP 16–20; TEMP 36.8; O2SAT 94–99; BMI 42.8
--- NOTE | 2020-07-18 07:13 | IR_ITS ---
APPROVED REPORT Patient Location: Outpatient Pocket Stitcher: LEAH Sequeira RT (R) PROCEDURES Right internal jugular vein access Right heart catheterization INDICATION Mitral stenosis, Pulmonary hypertension, Preoperative evaluation Informed consent was obtained prior to the procedure. COMPLICATIONS None Estimated Blood Loss: less than 10ml TECHNIQUE One percent lidocaine was used to anesthetize the right anterior aspect of the neck. A underwater hunter needle was used to identify the right internal jugular vein. Following this a larger cannulation needle was used to cannulate the right internal jugular vein and a wire was passed into the vein. Prior to the 7 Lao sheath being inserted the wire was confirmed under fluoroscopic guidance to be in the inferior vena cava. A 7 Lao sheath was introduced and a Walford-Shelly catheter was floated using hemodynamic waveforms in the pulmonary artery, right ventricle , and right atrium. Saturations were obtained in the pulmonary artery and the right atrium. At the end of the procedure the patient was transferred to the postop holding area in stable condition for sheath removal. ANGIOGRAPHIC RESULTS Right atrial pressure 8 mmHg Pulmonary artery pressure 40/20 mmHg Pulmonary artery occlusion pressure 18 mmHg Right atrial saturation 75% Pulmonary artery saturation 79% IMPRESSION Moderate pulmonary hypertension PLAN 1. Refer back to treating cardiology team for further decisions Electronically signed by : Byron Damon, 07/18/2020 10:41:51
[2020-07-18 14:35] LABS: CATHL Arterial O2 SAT 79.3 % (90-100); CATHL Venous O2 SAT 74.3 % (75-80)
== END 2020-07-18 11:44 | disposition home or self-care (01) ==
LOC: CATHLAB 08:55
PROVIDERS: PCP Family Medicine; Visit Provider Internal Medicine
DX: I08.0 Rheumatic disorders of both mitral and aortic valves (principal); R06.00 Dyspnea, unspecified; I27.20 Pulmonary hypertension, unspecified; E03.9 Hypothyroidism, unspecified; I50.32 Chronic diastolic (congestive) heart failure; I11.0 Hypertensive heart disease with heart failure; I25.10 Atherosclerotic heart disease of native coronary artery without angina pectoris; Z88.2 Allergy status to sulfonamides; Z79.82 Long term (current) use of aspirin; Z79.899 Other long term (current) drug therapy
CPT/HCPCS: 82810; 93451; 99152; C1894; J1644

== ENCOUNTER → 2020-08-01 09:44 | Outpatient (CLI) | payer MEDICARE, SELFPAY ==
--- NOTE | 2020-08-01 | CA_ITS ---
APPROVED REPORT Exam: Pharmacologic Technologist: Adrienne Corcoran, Ht: 5 ft 3 in Wt: 243 lbs BSA: 2.10 m2 HR: 81 bpm BP: 135/55 mmHg Rhythm: NSR,FIRST DEGREE AV BLOCK Indications: MV STENOSIS Medical History Medical History: HTN, Hyperlipidemia Allergies: SULFA CODEINE Cardiac Risk Factors: HTN, Hyperlipidemia Stress Test Details Test: DOBUTAMINE HR Resting HR: 63 bpm Max Heart Rate (APMHR): 151 bpm Max HR Achieved: 130 bpm Target HR (85% APMHR): 128 bpm % of APMHR: 86 Recovery HR: 127 bpm BP Resting BP: 122.0/42.0 mmHg Max BP: 138.0/35.0 mmHg Recovery BP: 111.0/54.0 mmHg ECG Resting ECG: NSR, FIRST DEGREE AV BLOCK Clinical Exercise duration: 08:04 min Highest Stage Achieved: Stress ECG Conclusion STOPPED TEST @ 8:00 (30 MCG/KG/MIN INFUSION RATE ) 16.5 MG DOBUTAMINE INFUSED OVER 8:00 MINUTES. PEAK INFUSION RATE 30 MCG/KG/MIN. NO ATROPINE GIVEN. MAX HEART RATE 130 WHICH IS 86% OF PM FOR AGE. MAX BP 133/55. TEST STOPPED DUE TO TARGET HEART RATE ACHIEVED. DURING INFUSION PATIENT HAD A MILD JITTERY FEELING. NO CP OR SOA. RARE PAC. NORMAL ST RESPONSE. NORMAL DOBUTAMINE STRESS TEST. STRESS AND REST ECHO IMAGES REPORTED SEPARATELY. Test Summary RECOVERY 06:00 . . 102 . 125/ 50 . . REST 21:28 . . 63 . 122/ 42 . . Stage 1 01:00 . . 63 . . . . Stage 1 02:00 . . 73 . . . . Stage 1 03:00 . . 82 . . . . Stage 2 01:00 . . 90 . 135/ 55 . . Stage 2 02:00 . . 104 . 135/ 55 . . Stage 2 03:00 . . 115 . 124/ 56 . . Stage 3 01:00 . . 126 . . . . Stage 3 02:00 . . 127 . . . . Stage 3 02:04 . . 128 . . . Stop exercise at 08:04 RECOVERY 01:00 . . 127 . . . . RECOVERY 02:00 . . 122 . 111/ 54 . . RECOVERY 03:00 . . 117 . 111/ 54 . . RECOVERY 04:00 . . 112 . 125/ 50 . . RECOVERY 05:00 . . 103 . 125/ 50 . . RECOVERY 06:00 . . 102 . 125/ 50 . . RECOVERY 07:00 . . 98 . 125/ 50 . . RECOVERY 08:00 . . 93 . 133/ 55 . . RECOVERY 09:00 . . 91 . 133/ 55 . . RECOVERY 10:00 . . 94 . 138/ 35 . . RECOVERY 11:00 . . 86 . 138/ 35 . . RECOVERY 12:00 . . 83 . 138/ 35 . . RECOVERY 13:00 . . 88 . 111/ 51 . . RECOVERY 14:00 . . 82 . 111/ 51 . . RECOVERY 15:00 . . 77 . 111/ 51 . . RECOVERY 15:18 . . 75 . 111/ 51 . . Electronically signed by : Anil Wilkerson, 08/02/2020 12:17:15
--- NOTE | 2020-08-01 09:45 | CA_ITS ---
APPROVED REPORT EXAM: Comprehensive 2D, Doppler, and color-flow Echocardiogram Control Center Operator: Shyanne Batista RDCS Ht: 5 ft 3 in Wt: 243lbs BSA: 2.10 BP: 133/69 mmHg Indications: REPEAT PRESSURES WITH DOBUTAMINE Conclusion 1. Patient received intravenous dobutamine, peak infusion rate was 30 mcg/kg/min, patient achieved greater than 85% of the maximal plated heart rate, there was no EKG changes suggestive of ischemia with dobutamine. 2. The resting mean gradient across the mitral valve was 8.5 mmHg, with dobutamine the gradient increased to 12 mmHg. The right-sided chambers were mildly enlarged. Tricuspid regurgitation jet velocity is inadequate for calculation of the right ventricular systolic pressure. 3. Likely severe functional mitral stenosis. Electronically signed by : Anil Wilkerson, 08/02/2020 13:25:15
== END ==
PROVIDERS: PCP Family Medicine; Visit Provider Internal Medicine Cardiovascular Disease
DX: E78.5 Hyperlipidemia, unspecified (principal); I05.0 Rheumatic mitral stenosis; I11.0 Hypertensive heart disease with heart failure; I25.10 Atherosclerotic heart disease of native coronary artery without angina pectoris; I35.1 Nonrheumatic aortic (valve) insufficiency; I50.30 Unspecified diastolic (congestive) heart failure; R01.1 Cardiac murmur, unspecified; R93.1 Abnormal findings on diagnostic imaging of heart and coronary circulation; R06.00 Dyspnea, unspecified
CPT/HCPCS: 93017; 93350; J1250

== ENCOUNTER → 2023-02-11 12:19 | Outpatient (CLI) | payer MEDICARE, SELFPAY ==
[2023-02-11 12:45] LABS: Basophils % 0.4 % (0.1-2.0); Eosinophils # 0.2 K/mm3 (0.0-0.4); Eosinophils % 2.8 % (0.1-12.0); Hematocrit 40.2 % (37.0-47.0); Hemoglobin 13.1 g/dL (12.2-16.2); Lymphocytes # 2.3 K/mm3 (0.7-4.5); Lymphocytes % 32.8 % (10-50); Mean Corpuscular HGB Conc 32.5 g/dL (31.8-35.4); Mean Corpuscular Hemoglobin 32.8 pg (27.0-31.2); Mean Corpuscular Volume 100.8 fl (81-99); Monocytes # 0.8 K/mm3 (0.1-1.0); Monocytes % 10.6 % (1.7-9.3); Neutrophils # 3.8 K/mm3 (1.8-7.8); Neutrophils % 53.4 % (37.0-80.0); Platelet Count 204 K/mm3 (142-424); Red Blood Count 3.99 M/mm3 (4.20-5.40); Red Cell Distribution Width 12.5 % (11.5-17.5); White Blood Count 7.1 K/mm3 (4.8-10.8)
[2023-02-11 13:41] LABS: Chloride 96 mmol/L (98-107); Sodium 139 mmol/L (136-145)
[2023-02-11 13:42] LABS: Potassium 4.1 mmoL/L (3.5-5.1)
[2023-02-11 13:44] LABS: Alanine Aminotransferase 20 U/L (12-78); Albumin/Globulin Ratio 1.3 (1.1-1.8); Alkaline Phosphatase 66 U/L (38-126); Anion Gap 17.1 mEq/L (5-15); Aspartate Amino Transferase 27 U/L (14-36); Bilirubin,Total 0.7 mg/dl (0.2-1.3); Blood Urea Nitrogen 31 mg/dl (7-17); Calcium 10.1 mg/dl (8.4-10.2); Carbon Dioxide 30 mmol/L (22.0-30.0); Estimated Glomerular Filt Rate 34 ml/min (>60); GFR (African American) 41 ML/MIN (>60); Globulin 3.1 g/dL (1.3-3.2); Glucose 89 mg/dl (74-100); Total Protein,Serum 7.1 g/dl (6.3-8.2)
== END ==
LOC: LAB 12:20
PROVIDERS: PCP Family Medicine; Visit Provider Obstetrics & Gynecology
DX: N95.0 Postmenopausal bleeding (principal)
CPT/HCPCS: 36415; 80053; 85025

== ENCOUNTER 2023-02-18 07:39 | Day surgery (SDC) | payer MEDICARE, SELFPAY ==
[2023-02-18] VITALS (10 sets, daily range): BP systolic 93–150; BP diastolic 69–89; PULSE 60–80; RESP 12–18; TEMP 36.1–43; O2SAT 93–97; BMI 37.1
--- NOTE | 2023-02-18 08:22 | EXP.ANES.CKL ---
[facility] Disclaimer: The information contained in this section may have been updated after the patient was seen, as this information can be updated by other users. Medical History CAD (coronary artery disease) Dyspnea Hyperlipidemia Hypertension Morbid obesity with body mass index (BMI) of 40.0 or higher Obesity Remote history of stroke Surgical History H/O tubal ligation S/P cholecystectomy Family History Other Coronary artery disease Social History Smoking Status: Never smoker second hand exposure: No alcohol intake: never substance use type: denies use current occupational status: retired Travel in the last 8 weeks: None household members: spouse housing: house current occupational exposures/hazards: No [facility] Anesthesia Checklist Patient Identification Patient Identification: Arm Band Structural Data Admitted From: Home Planned Operative Procedure/s: Hysteroscopy, D&C, Myosure Ablation Consent for Planned Operative Procedure(s) Verified: Yes Verified Documents: Surgical Consent and History and Physical NPO Status Verified Time NPO: 00:00 Additional verifications Anesthesia Reactions: No Hx Blood Transfusions: No Blood Transfusion Reaction: No Airway Assessment C-Spine Mobility Assessed: Yes TMJ Mobility Assessed: Yes Dentition: Good Dentition Neurological Assessment Level of Consciousness: Awake and Alert Anesthesia Plan Anesthesia Risk discussed: Yes Anesthesia Plan: Verified ASA Class: III Anesthesia Type: General
--- NOTE | 2023-02-18 10:43 | EXP.OP.NOTE ---
Date of procedure: 02/18/23 Pre-op Diagnosis:: 1. Postmenopausal bleeding 2. Thickened endometrium 3. Morbid obesity Post-op Diagnosis:: Same Procedure performed:: Myosure Dilation and Curettage Hysteroscopy Surgeon:: Nara Ingram MD Credit And Collections Representative(s):: None VP PUBLIC RELATIONS:: Annabelle Elaine Anesthesia: GETA Estimated blood loss (mL): 5 Operative findings:: Proliferative endometrial tissue polypoid mass anterior cavity wall Operative note:: The patient was taken to the OR and general anesthesia administered without difficulty. She was prepped/draped in lithotomy position. Wilkerson retractors were placed in the vagina and an allis clamp placed on the anterior lip of the cervix. The cervix was easily dilated and hysteroscopic evaluation performed. Proliferative endometrial tissue was visualized throughout the endometrial cavity, and a polypoid mass was identified on the anterior uterine wall. The Myosure was used to excise this mass, and then to sample the endometrial tissue throughout the cavity. Once this was completed, all instruments were removed from her uterus and vagina. She was taken out of lithotomy position, awakened from anesthesia and taken to the PACU in stable condition. All sponge, needle & instrument counts correct. EBL <5cc. Condition: stable Disposition: PACU Specimens:: Endometrial Complications:: none
--- NOTE | 2023-02-18 10:44 | EXP.ANES.I ---
[facility] Anesthesia Record Part I Anesthesia Record I Intake, IV Amount: 900 Estimated blood loss (mL): 5 Urine output (mL): 0 Blood Pressure: 113/73 SaO2: 93 Pulse Rate: 80 Respiratory Rate: 12 Temperature: 97.6 F Patient is:: Drowsy Stable to PACU at:: 10:44
--- NOTE | 2023-02-19 10:06 | EXP.ANES.II ---
[facility] Anesthesia Record Part II Anesthesia Record Part II Discharge Time: 11:14 Destination: Surgical Day Care (OP Surgery) PACU nurse assessment reviewed?: Yes Patient Condition:: Good Anesthesia Complications:: None Swallowing reflex intact?: Yes Cyanosis?: No Blood Pressure: 112/73 Pulse Rate: 67 Temperature: 97.5 F Mental Status: Alert & Oriented Pain level:: 0 Nausea and/or vomitting:: None Intake, IV Amount: 0
[2023-02-19 10:07] VITALS: BP 112/73; PULSE 67; TEMP 36.4
== END 2023-02-18 12:00 | disposition home or self-care (01) ==
PROVIDERS: PCP Family Medicine; Visit Provider Obstetrics & Gynecology
DX: N95.0 Postmenopausal bleeding (principal); R93.89 Abnormal findings on diagnostic imaging of other specified body structures; E66.01 Morbid (severe) obesity due to excess calories; Z68.41 Body mass index [BMI] 40.0-44.9, adult
CPT/HCPCS: 58558; 88305; 96374

== ENCOUNTER 2024-10-23 23:06 | Emergency (ER) | payer MEDICARE, SELFPAY ==
--- NOTE | 2024-10-23 00:03 | ECG_ITS ---
APPROVED REPORT Exam: Resting ECG HR:59 bpm ECG Measurements Heart Rate 59 AXES QRSd 90 QRS 58 QT 398 T 69 QTc 396 Conclusion sinus bradycardia with first degree av block UNCONFIRMED REPORT Electronically signed by : AXEL ANDUJAR, 10/24/2024 06:47:43
[2024-10-23 23:08] VITALS: BP 117/90; PULSE 82; RESP 18; TEMP 36.8; O2SAT 95; BMI 36.6
[2024-10-23 23:13] VITALS: BP 117/90; PULSE 80; O2SAT 95
--- NOTE | 2024-10-23 23:13 | HMH.EDGENADL ---
Discharge Plan Disposition Patient Disposition: Home, Self-Care Prescriptions Prescriptions: New oseltamivir 75 mg capsule 75 mg PO BID 5 Days Qty: 10 0RF No Action Xarelto 2.5 mg tablet 2.5 mg PO DAILY cyanocobalamin (vitamin B-12) 1,000 mcg/mL drops 1,000 mcg PO DAILY hydralazine 50 mg Tablet 50 mg PO BID metoprolol succinate 50 MG tablet extended release 24 hr 50 mg PO HS lovastatin 40 MG tablet 40 mg PO HS levothyroxine 50 MCG tablet 50 mcg PO DAILY aspirin 81 MG tablet,delayed release (DR/EC) 81 mg PO DAILY omega-3 fatty acids-fish oil 1 EACH capsule 1 each PO DAILY spironolactone 25 MG tablet 25 mg PO DAILY hydrochlorothiazide 25 MG tablet 25 mg PO DAILY Referrals Follow up/Referrals: Leticia Gonzalez [Primary Care Provider] - See instructions Activity Restrictions/Add. Instructions Additional Instructions/Restrictions: Please follow-up with your primary care provider. Please return to the emergency department if you develop any new or worsening symptoms or become concerned for your health. Please take Tamiflu as prescribed for treatment of pneumonia Clinical Impressions Clinical Impression: Influenza A, Acute hypokalemia, Hypomagnesemia Print Language Print Language: Portuguese Discharge ED Provider: Stefan Goldberg General Adult HPI General Chief complaint: Upper Respiratory Infection Stated complaint: difficulty breathing, cough, drainage, stuffy nose Time Seen by Provider: 10/23/24 23:13 History of Present Illness HPI narrative: 73-year-old female with history of obesity, coronary artery disease, mitral stenosis, hypertension hyperlipidemia presents for cough congestion shortness of breath and decreased p.o. intake over the last 5 or so days. She is here primarily because her shortness of breath has been worsening. She denies any new lower extremity swelling. Reports breathing is worse when she lays down. Denies any chest pain. Denies any fever at home. Related Data Home Medications ?Medication ?Instructions ?Recorded ?Confirmed aspirin 81 mg tablet,delayed 81 mg PO DAILY HEART HEALTH 06/26/20 10/23/24 release levothyroxine 50 mcg tablet 50 mcg PO DAILY thyroid 06/26/20 10/23/24 lovastatin 40 mg tablet 40 mg PO HS Cholesterol 06/26/20 10/23/24 metoprolol succinate 50 mg 50 mg PO HS Hypertension 06/26/20 10/23/24 tablet,extended release 24 hr omega-3 fatty acids-fish oil 340 1 each PO DAILY Diet supplement 06/26/20 10/23/24 mg-1,000 mg capsule hydrochlorothiazide 25 mg tablet 25 mg PO DAILY fluid+ 07/18/20 10/23/24 spironolactone 25 mg tablet 25 mg PO DAILY Fluid 07/18/20 10/23/24 cyanocobalamin (vitamin B-12) 1,000 mcg PO DAILY Supplement 08/09/20 10/23/24 1,000 mcg/mL oral drops rivaroxaban 2.5 mg tablet (Xarelto) 2.5 mg PO DAILY Blood thinner 01/21/23 10/23/24 hydralazine 50 mg tablet 50 mg PO BID 10/23/24 10/23/24 Previous Rx's ?Medication ?Instructions ?Recorded oseltamivir 75 mg capsule 75 mg PO BID 5 days #10 caps 10/24/24 Allergies Allergy/AdvReac Type Severity Reaction Status Date / Time codeine (CODEINE) Allergy Unknown I-RASH Verified 03/04/23 11:02 Sulfa (Sulfonamide Allergy Unknown I-RASH Verified 03/04/23 11:02 Antibiotics) (SULFA (SULFONAMIDE ANTIBIOTICS)) [facility] Disclaimer: The information contained in this section may have been updated after the patient was seen, as this information can be updated by other users. Medical History (Updated 10/24/24 @ 02:01 by Stefan Goldberg MD) Morbid obesity with body mass index (BMI) of 40.0 or higher Dyspnea CAD (coronary artery disease) Remote history of stroke Hyperlipidemia Hypertension Obesity Surgical History (Updated 03/04/23 @ 11:09 by ROSE Delgado) History of hysteroscopy S/P cholecystectomy H/O tubal ligation Family History Other Coronary artery disease Social History Smoking Status: Unknown if ever smoked second hand exposure: No alcohol intake: never substance use type: denies use current occupational status: retired Travel in the last 8 weeks: None household members: spouse housing: house current occupational exposures/hazards: No Other Medical History Have you received the Flu Vaccine for this season: Yes Have you received the Pneumonia Vaccine: Yes ROS Obtained: Yes All systems reviewed & no additional complaints except as documented Physical Exam General General appearance: alert and in no apparent distress Head Head exam: atraumatic and normocephalic Eye Eye exam: Present normal appearance, PERRL and EOMI ENT ENT exam: Present normal oropharynx, normal external ear exam and other (Nasal congestion noted) Neck Neck exam: Present normal inspection and full ROM Chest Chest inspection: Present normal inspection and symmetric chest wall rise; Absent tenderness Respiratory Respiratory exam: Present normal lung sounds bilaterally; Absent respiratory distress Cardiovascular Cardiovascular exam: Present regular rate and normal rhythm Abdominal Exam Abdominal exam: Present soft; Absent distention, tenderness or guarding Extremities Exam Extremities exam: Present normal inspection and edema; Absent joint swelling Back Exam Back exam: Present normal inspection; Absent tenderness Neurological Exam Neurological exam: Present alert and oriented X3; Absent motor sensory deficit Psychiatric Psychiatric exam: Present normal affect and normal mood Skin Skin exam: Present warm, dry and normal color Lymphatic Lymphatic Findings: no adenopathy Medical Decision Making Medical Records Medical records reviewed: Yes I reviewed the patient's medical records. Screening: Per USPSTF and CDC recommendations, given the prevalence of disease in our region, it is our hospital?s policy to screen for HIV and viral Hepatitis for all patients aged 18 and over and those with ongoing risk factors. Kendrick Inquiry Pt receiving controlled substance: No Kendrick was queried for this patient: No Vital Signs: 10/23/24 23:08 10/23/24 23:13 10/23/24 23:29 Temperature 98.2 F Temperature Source Oral Pulse Rate 80 71 Pulse Rate [Right Radial] 82 Respiratory Rate 18 Blood Pressure 117/90 113/75 Blood Pressure [Right Arm] 117/90 Blood Pressure Mean [Right Arm] 99 Blood Pressure Source [Right Arm] Automatic Cuff Blood Pressure Position [Right Arm] Sitting 02 Sat by Pulse Oximetry 95 95 94 L Oxygen Delivery Method Room Air Room Air Room Air 10/24/24 00:00 10/24/24 00:30 10/24/24 01:00 Temperature Temperature Source Pulse Rate 60 68 67 Pulse Rate [Right Radial] Respiratory Rate Blood Pressure 131/69 133/79 132/78 Blood Pressure [Right Arm] Blood Pressure Mean [Right Arm] Blood Pressure Source [Right Arm] Blood Pressure Position [Right Arm] 02 Sat by Pulse Oximetry 94 L 91 L 91 L Oxygen Delivery Method Room Air Room Air Room Air 10/24/24 01:30 10/24/24 02:00 10/24/24 03:00 Temperature Temperature Source Pulse Rate 60 63 56 L Pulse Rate [Right Radial] Respiratory Rate Blood Pressure 127/66 121/65 139/74 Blood Pressure [Right Arm] Blood Pressure Mean [Right Arm] Blood Pressure Source [Right Arm] Blood Pressure Position [Right Arm] 02 Sat by Pulse Oximetry 94 L 94 L 94 L Oxygen Delivery Method Room Air Room Air Room Air 10/24/24 03:31 10/24/24 04:04 10/24/24 04:30 Temperature Temperature Source Pulse Rate 63 60 61 Pulse Rate [Right Radial] Respiratory Rate Blood Pressure 150/80 H 157/83 H 148/81 H Blood Pressure [Right Arm] Blood Pressure Mean [Right Arm] Blood Pressure Source [Right Arm] Blood Pressure Position [Right Arm] 02 Sat by Pulse Oximetry 92 L 90 L 93 L Oxygen Delivery Method Room Air Room Air Room Air 10/24/24 05:00 10/24/24 06:04 Temperature 98.7 F Temperature Source Pulse Rate 63 70 Pulse Rate [Right Radial] Respiratory Rate 18 Blood Pressure 154/79 H 145/81 H Blood Pressure [Right Arm] Blood Pressure Mean [Right Arm] Blood Pressure Source [Right Arm] Blood Pressure Position [Right Arm] 02 Sat by Pulse Oximetry 94 L Oxygen Delivery Method Room Air Room Air Lab Data Lab results reviewed: Yes I reviewed the patient's lab results. Lab Results 10/23/24 23:16: SARS-CoV-2 (PCR) Not detected, Influenza A Untype (PCR) Detected A, Influenza Type B (PCR) Not detected 10/23/24 23:44: WBC 6.1, RBC 4.41, Hgb 14.1, Hct 41.7, MCV 94.6, MCH 32.0 H, MCHC 33.8, RDW 12.9, Plt Count 183, MPV 10.9 H, Neut % (Auto) 62.0, Lymph % (Auto) 21.6, [place] % (Auto) 14.2 H, Eos % (Auto) 1.5, Baso % (Auto) 0.5, Neut # (Auto) 3.8, Lymph # (Auto) 1.3, [place] # (Auto) 0.9, Eos # (Auto) 0.1, Baso # (Auto) 0.0, Sodium 136, Potassium 2.6 L*, Chloride 94 L, Carbon Dioxide 33 H, Anion Gap 11.6, BUN 18 H, Creatinine 1.00, Estimated Creat Clear 76, Estimated GFR 54 L, Est GFR ( Amer) 66, Glucose 115 H, Calcium 9.4, Total Bilirubin 0.4, AST 43 H, ALT 25, Alkaline Phosphatase 72, Troponin I < 0.01, NT-Pro-B Natriuret Pep 832 H, Total Protein 7.5, Albumin 4.2, Globulin 3.3 H, Albumin/Globulin Ratio 1.3 10/24/24 00:00: Magnesium 1.5 L 10/24/24 02:32: Troponin I < 0.01 10/23/24 23:44 10/23/24 23:44 Orders (Tests/Meds): ED MEDICATIONS Discontinued Medications Generic Name Dose Route Start Last Admin Trade Name Freq PRN Reason Stop Dose Admin Magnesium Sulfate 2 gm in 50 mls @ 150 mls/hr 10/24/24 00:38 10/24/24 00:50 Magnesium Sulfate 2gm/50ml Premix IV 10/24/24 00:57 150 mls/hr ONCE ONE Administration Potassium Chloride/Water 100 mls @ 100 mls/hr 10/24/24 00:39 10/24/24 02:41 Potassium Chloride 10meq/100ml Ivpb IV 10/24/24 02:38 100 mls/hr Q1H DOUGIE Administration Magnesium Sulfate 2 gm in 50 mls @ 150 mls/hr 10/24/24 01:12 10/24/24 01:22 Magnesium Sulfate 2gm/50ml Premix IV 10/24/24 01:31 150 mls/hr ONCE ONE Administration Potassium Chloride/Water 100 mls @ 100 mls/hr 10/24/24 02:45 10/24/24 04:45 Potassium Chloride 10meq/100ml Ivpb IV 10/24/24 04:44 100 mls/hr Q1H DOUGIE Administration Oseltamivir Phosphate 75 mg 10/24/24 01:13 10/24/24 01:56 Oseltamivir 75mg Capsule PO 10/24/24 01:14 75 mg ONCE ONE Administration Potassium Chloride 40 meq 10/24/24 00:38 10/24/24 00:50 Potassium Chloride 20meq Tab PO 10/24/24 00:39 40 meq ONCE ONE Administration ORDERS Category Date Time Status CXR 2 view (NOT portable) [XR chest 2V] Stat Exams 10/23/24 23:22 Completed BNP [NT Pro Brain Natriuretic Pep.] Stat Lab 10/23/24 23:44 Completed CBC w/Auto Diff [Complete Blood Count Auto Diff] Stat Lab 10/23/24 23:44 Completed CMP [Comprehensive Metabolic Panel] Stat Lab 10/23/24 23:44 Completed HIV Combo Stat Lab 10/23/24 23:44 Received Hepatitis C Ab Qual. W/ RFX Stat Lab 10/23/24 23:44 Received Magnesium Stat Lab 10/24/24 00:00 Completed Rapid PCR Covid and Flu A/B Stat Lab 10/23/24 23:16 Completed Trop I [Troponin I] Stat Lab 10/23/24 23:44 Completed Troponin I Q3H Lab 10/24/24 02:32 Completed ECG Data Tracing #1: I reviewed this ECG and interpreted as documented below: Sinus bradycardia with rate of 59. First-degree AV block noted with ME interval 240 ms. This is slightly increased from her prior EKG. No concerning ST changes. ECG initial impression date: 10/24/24 ECG initial impression time: 00:03 HEART Score History (anamnesis): Slightly suspicious ECG: Normal Age: >65 years Risk factors: Atherosclerosis history Troponin: </= normal limit HEART Score: 4 Medical Decision Narrative: 73-year-old female with history of disease, obesity, hypertension anemia mitral stenosis presents for cough congestion shortness of breath decreased p.o. intake over the last few days.. History was obtained via interactive discussion with patient. On arrival, patient is [afebrile, hemodynamically stable, satting appropriately, alert, oriented x4, GCS 15], moving all extremities spontaneously. Full physical exam performed and significant for clear lungs bilaterally, bilateral lower extremity edema (patient reports baseline) Differential includes but is not limited to COVID, flu, pneumonia, pulmonary edema/heart failure, ACS. Workup initiated including CBC CMP mag troponin EKG chest x-ray COVID flu swab. On re-evaluation, patient [remains afebrile, HD stable.] Laboratory workup independently interpreted by me and significant for positive influenza A. Significant hypokalemia 2.6, mild hypomagnesemia at 1.5, mildly elevated BNP. Negative initial troponin. Imaging independently interpreted by me and significant for no lobar opacity. See radiology read for full review of final results. Given patient history, exam and workup, patient's presentation most likely represents influenza A with resultant shortness of breath and decreased p.o. intake causing electrolyte derangement. I discussed with patient utility of admission versus ER electrolyte repletion and she reports she would prefer to get her repletion in the ER. From a respiratory standpoint, she is satting appropriately on room air. Patient was initiated on oseltamivir as well as 4 g of mag IV, 40 mill equivalents of potassium p.o., 40 mill equivalents potassium IV. Patient was placed in ED observation status for electrolyte repletion and respiratory monitoring. On reassessment patient remains hemodynamically stable. No significant changes on sample processor. Patient remains stable from respiratory standpoint. Patient was discharged in stable condition with return precautions instructions follow-up with PCP for recheck of labs. She was discharged with prescription for Tamiflu for treatment of the flu. Procedures Risk/Benefits of Procedure(s) Were Explained: Yes Critical Care Critical Care Time Critical Care Time: Yes Attestation: On 10/23/24, the high probability of a clinically significant, sudden or life threatening deterioration of the following system(s) required my full and direct attention, intervention and personal management. The time I documented below is in addition to time spent performing reported procedures but includes the following listed in this critical care notation. Total Time Total Critical Care Time: 40
--- NOTE | 2024-10-23 23:22 | XR_ITS ---
PROCEDURE INFORMATION: Exam: XR Chest Exam date and time: 10/23/2024 11:21 PM Age: 73 years old Clinical indication: Cough; Additional info: Cough/soa x5 days TECHNIQUE: Imaging protocol: Radiologic exam of the chest. Views: 2 views. COMPARISON: CR XR CHEST 2V 06/26/2020 9:28 PM FINDINGS: Lungs: No evidence of acute pulmonary disease or infiltrates Pleural spaces: No large effusion or pneumothorax. Heart/Mediastinum: Stable cardiac and mediastinal contours. Vasculature: There are calcifications of the aortic arch. Bones/joints: There is exaggeration of the spinal curvature. Intraperitoneal space: There are right upper quadrant surgical clips suggesting prior cholecystectomy. IMPRESSION: No dense parenchymal consolidation, pleural effusion, or pneumothorax.
[2024-10-23 23:29] VITALS: BP 113/75; PULSE 71; O2SAT 94
[2024-10-24] VITALS (11 sets, daily range): BP systolic 121–157; BP diastolic 65–83; PULSE 56–70; RESP 18; TEMP 37.1; O2SAT 90–94
[2024-10-24 00:01] LABS: Basophils % 0.5 % (0.1-2.0); Eosinophils # 0.1 K/mm3 (0.0-0.4); Eosinophils % 1.5 % (0.1-12.0); Hematocrit 41.7 % (37.0-47.0); Hemoglobin 14.1 g/dL (12.2-16.2); Lymphocytes # 1.3 K/mm3 (0.7-4.5); Lymphocytes % 21.6 % (10-50); Mean Corpuscular HGB Conc 33.8 g/dL (31.8-35.4); Mean Corpuscular Volume 94.6 fl (81-99); Mean Platelet Volume 10.9 fl (7.4-10.4); Monocytes # 0.9 K/mm3 (0.1-1.0); Monocytes % 14.2 % (1.7-9.3); Neutrophils # 3.8 K/mm3 (1.8-7.8); Platelet Count 183 K/mm3 (142-424); Red Blood Count 4.41 M/mm3 (4.20-5.40); Red Cell Distribution Width 12.9 % (11.5-17.5); White Blood Count 6.1 K/mm3 (4.8-10.8)
[2024-10-24 00:05] LABS: Coronavirus 19, PCR Not Detected (NotDetected); Influenza B, PCR Not Detected (NotDetected)
[2024-10-24 00:08] LABS: Alanine Aminotransferase 25 U/L (12-78); Albumin Level 4.2 g/dl (3.5-5.0); Albumin/Globulin Ratio 1.3 (1.1-1.8); Alkaline Phosphatase 72 U/L (38-126); Anion Gap 11.6 mEq/L (5-15); Aspartate Amino Transferase 43 U/L (14-36); Bilirubin,Total 0.4 mg/dl (0.2-1.3); Blood Urea Nitrogen 18 mg/dl (7-17); Calcium 9.4 mg/dl (8.4-10.2); Carbon Dioxide 33 mmol/L (22.0-30.0); Chloride 94 mmol/L (98-107); Creatinine Clearance Estimated 76 mL/min (50-200); Estimated Glomerular Filt Rate 54 ml/min (>60); GFR (African American) 66 ML/MIN (>60); Globulin 3.3 g/dL (1.3-3.2); Glucose 115 mg/dl (74-100); Sodium 136 mmol/L (136-145); Total Protein,Serum 7.5 g/dl (6.3-8.2)
[2024-10-24 00:16] LABS: Potassium 2.6 mmoL/L (3.5-5.1)
[2024-10-24 00:20] LABS: NT Pro Brain Natriuretic Pep. 832 pg/mL (0-125)
[2024-10-24 00:23] LABS: Troponin I < 0.01 ng/ml (0.00-0.034)
[2024-10-24 00:26] LABS: Magnesium 1.5 mg/dl (1.6-2.3)
[2024-10-24] MEDS: KCl 10mEq/100ml 100 ML 100 MEQ IV ×4 (00:50→04:45)
[2024-10-24] MEDS: MAGNESIUM SULFATE IN WATER 2 GM/50 ML PIGGYBACK IV ×2 (00:50→01:22)
[2024-10-24] MEDS: POTASSIUM CHLORIDE 20MEQ TAB 40 MEQ PO (00:50)
[2024-10-24 00:51] LABS: Influenza A, PCR Detected (NotDetected)
[2024-10-24] MEDS: OSELTAMIVIR 75MG CAPSULE 75 MG PO (01:56)
[2024-10-24 03:04] LABS: Troponin I < 0.01 ng/ml (0.00-0.034)
[2024-10-24 08:17] LABS: HIV Combo NEGATIVE (Negative)
[2024-10-24 08:23] LABS: Hepatitis C Ab Qual. W/ RFX NEGATIVE (Negative)
== END 2024-10-24 06:09 | disposition home or self-care (01) ==
PROVIDERS: Emergency Provider Emergency Medicine; PCP Family Medicine
DX: E83.42 Hypomagnesemia (principal); E87.6 Hypokalemia; J10.1 Influenza due to other identified influenza virus with other respiratory manifestations; R06.02 Shortness of breath; R05.9 Cough, unspecified; R09.81 Nasal congestion; R63.8 Other symptoms and signs concerning food and fluid intake
CPT/HCPCS: 71046; 80053; 83735; 83880; 84484; 85025; 86803; 87389; 87636; 93005; 96361; 96365; 99291; J3475; J3480

== ENCOUNTER 2025-03-06 01:07 | Observation (INO) | payer MEDICARE, SELFPAY ==
[2025-03-06] VITALS (12 sets, daily range): BP systolic 106–153; BP diastolic 52–90; PULSE 57–120; RESP 18–34; TEMP 36.7–37.6; O2SAT 80–97; BMI 36.0; BMI 34.7
--- NOTE | 2025-03-06 01:15 | ECG_ITS ---
APPROVED REPORT Exam: Resting ECG HR:84 bpm ECG Measurements Heart Rate 84 AXES QRSd 101 QRS 82 QT 312 T 95 QTc 354 Conclusion SUPRAVENTRICULAR RHYTHM INCOMPLETE RIGHT BUNDLE BRANCH BLOCK [90+ ms QRS DURATION, TERMINAL R IN V1/V2, 40+ ms S IN I/aVL/V4/V5/V6] NONSPECIFIC ST & T-WAVE ABNORMALITY Depressions in the inferior leads with slight elevation in lead aVL but no STEMI. Electronically signed by : AMBER QUAN, 03/06/2025 04:20:16
--- OUTSIDE RECORDS SUMMARY | 2025-03-06 01:15 | XMS_ITS | Referral Summary ---
Author Organization [employer] [facility] [employer] Address [address] [place] [address] Care Team Providers Care Economic Analyst Name Role Phone Unavailable Primary Care Provider Unavailabl e Allergies Active Allergy Reactions Criticality Noted Date Comments Codeine Hives,Rash,Swelling High 06/13/2020 Sulfa (Sulfonamide Antibiotics) Rash Low 06/21 Medications aspirin 81 MG EC tablet Take 1 tablet every day by oral route. Active hydrALAZINE (APRESOLINE) 50 MG tablet Take 1 tablet twice a day by oral route. Active hydroCHLOROthia zide (MICROZIDE) 12.5 mg capsule Take 1 capsule (12.5 mg total) by mouth daily. Active levothyroxine (SYNTHROID, LEVOTHROID) 50 MCG tablet Take 1 tablet (50 mcg total) by mouth Every morning on an empty stomach. Active rivaroxaban (XARELTO) 10 mg tablet Take 0.25 tablets (2.5 mg total) by mouth daily. Active metoprolol tartrate (LOPRESSOR) 100 MG tablet Take 1 tablet (100 mg total) by mouth 2 (two) times daily 1/2 tablet. Active lovastatin (ALTOPREV) 40 MG 24 hr tablet Take 1 tablet (40 mg total) by mouth nightly. 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 CAD (coronary artery disease) 06/02/2024 Cardiac murmur, unspecified 06/02/2024 Cerebrovascular disease 06/02/2024 Near syncope 06/02/2024 Chest pain 06/02/2024 Diastolic congestive heart failure 06/02/2024 Diastolic dysfunction 06/02/2024 Disorder of urinary tract 06/02/2024 Social History Tobacco Use Types Packs/Day Years Used Date Smoking Tobacco: Never Smokeless Tobacco: Never Tobacco Cessation:Counseling Given: Not Answered Interpersonal Safety Answer Date Record ed Family or friends hurt you Not on file 05/30 Family or friends insult you Not on file 06/2024 Family or friends threaten you Not on file 0 05/30/2024 Family or friends scream or curse at you Not on file 05/30/2024 Food Insecurity Answer Date Recorded Food run out past 12 months Not on file 05/21 Food did not last past 12 months Not on file 05/30/2024 Employment Answer Date Recorded Help finding and keeping a job Not on file 0 05/30/2024 Family and Community Support Answer Christiano e Recorded Help with Day to Day Activities Not on file 05/30/2024 Feeling Lonely or Isolated Not on file 05/30 Educational Attainment Answer Date Vern rded Speak language other than Tanzanian at home Not on file 05/30/2024 Want help with school or training Not on file 05/30/2024 Depression Answer Date Recorded PHQ-2 Risk Not on file 05/30/2024 Disabilities Answer Date Recorded Difficulty concentrating Not on file 024 Difficulty doing errands alone Not on file 0 05/30/2024 Substance Use Answer Date Recorded Used prescription meds for non-medical reasons N ot on file 05/30/2024 Used illegal drugs past 12 months Not on file 05/30/2024 Comments Unknown Sex and Gender Information Value Date Recorded Sex Assigned at Not on file Legal Sex Female 6:02 PM CDT Gender Identity Not on file Sexual Orientation Not on file Last Filed Vital Signs Vital Sign Reading Time Taken Comments Blood Pressure 166/85 06/02/2024 2:30 PM EDT Pulse 62 06/02/2024 2:30 PM EDT Temperature 36.1 C (97 F) 06/02/2024 7:16 AM EDT Respiratory Rate 16 06/02/2024 7:16 AM EDT Oxygen Saturation 100% 06/02/2024 2:30 PM EDT Inhaled Oxygen Concentration - - Weight 101.2 kg (223 lb) 06/02/2024 7:18 AM EDT Height 162.6 cm (5' 4 ) 06/02/2024 7:18 AM EDT Body Mass Index 38.28 06/02/2024 7:18 AM EDT Plan of Treatment Not on file Insurance [facility] AD[facility]
--- OUTSIDE RECORDS SUMMARY | 2025-03-06 01:15 | XMS_ITS | Clinical Summary ---
Author Organization [employer] Address [address] [place] [address] Care Team Providers Care Electrical Systems Designer Name Role Phone Unavailable Primary Care Provider [...] Date Vern rded Speak language other than Cameroonian at home Not on file 05/30/2024 Want [...] 06/02/2024 7:18 AM EDT Plan of Treatment Health Maintenance Due Date Last Done Comments CT Colonography 1950 Colonoscopy 1950 Colorectal Cancer Screening 1950 DXA SCAN 1950 FOBT/FIT 1950 Fit-DNA (Cologuard) 1950 Sigmoidoscopy 1950 Depression Screening (12+) 1962 Hepatitis C Screening 1968 Breast Cancer Screening 1990 Shingles Vaccine (Zoster) (1 of 2) 2000 Respiratory Syncytial Virus (RSV) Adult or (1 - Risk 60-74 years 1-dose series) 2010 COVID-19 VACCINE ( - 2023-2 5 season) 2024 04/16/2022, 07/23/2021, 11/27/2020, Additional history exists Falls Risk Screening 09/20/2024 Medicare Initial AWV [id number] 09/21/2024 Influenza Vaccine (Season Ended) 2025 07/20/2023, 01/18/2023, 07/13/2022, Additional history exists Tobacco Cessation Counseling and Screening (12+) 06/02/2025 06/02/2024 DTAP/TDAP/TD VACCINES (3 - T d or Tdap) 04/17/2029 04/17/2019, 05/25/2008 Pneumococcal 50+ years Completed 02/26/2017, 2015 Insurance MARY [employer] CRUZ ADV
--- OUTSIDE RECORDS SUMMARY | 2025-03-06 01:15 | XMS_ITS | Continuity of Care Document ---
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 Her medical status is stable. She continues to struggle with her weight and we encourage healthy choices and some increase in activity. In addition she has a history of recurrent loose bowels and dumping syndrome and fortunately this problem is somewhat better. She finds that taking fiber gummies has helped when she needs them. Because of this she really would not leave her home often but even with it under control she still prefers to be a homebody. She has had the gall bladder removed. Labs are reviewed and cholesterol is controlled. There is mild decrease in renal function and she has been referred to nephrology and fortunately is stable. The spironolactone had to be discontinued. On the HCTZ she has borderline low potassium so is taking a supplement and eating fruit regularly. She has a nephrology follow up with labs every 6 months so we will not adjust her medications further. Medications are reconciled. The blood pressure is controlled. She does have a history of lacunar infarcts several years ago but with adequate control of the blood pressure there has not been a recurrence. She has had no further syncopal spells. She continues to follow with her forestry worker, Dr. Rick Holland, for the rheumatic moderate mitral valve stenosis. Her forestry worker did begin Xarelto a couple of years ago for the history of amaurosis fugax. She had a playground monitor and there was no evidence for atrial fibrillation. She has scratched the lower leg as she was trying to pick off skin and bleeds easily from the blood thinner. We recommend she not pick at her skin and use a moisturizer (she has Aveeno) daily after showering to moisturize her skin better. 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 Depression screen is negative and fall risk is low. However she has had significant stress with the untimely of a son previously. Vaccines are reviewed and she receives the Prevnar 20 today. We encourage healthy lifestyle changes. BMI is recommended to be under 30 % for best health. We recommend mammogram but she has declined again. She did have a colonoscopy at [facility] in 2016 and will be due again in 2026. We continue to encourage healthy lifestyle choices. Not available 02/01/2025 13:31:04 Plan of Treatment Reminders Order Date Submit Date Provider Last Modified By Organization Details Last Modified Time Details Appointments None record ed. Lab None record ed. Referral None record ed. Procedures None record ed. Surgeries None record ed. Imaging None record ed. Medication Orders None record ed. Patient TargetsNo targets recorded. Patient Instructions Encounter Date Encounter Id Patient Instructions Last Modified By Organization Details Last Modified Time 02/01/[id number] taking direct or al anticoagulants safely: care instructions Not available 02/01/2025 13:31:41 learning about t he mediterranean diet Not available 02/01/2025 13:31:41 Reason for Referral None Reported. Problems Name Problem SNOMED Code Status Onset Date Resolution Date Notes Provider Name and Address Organization Details Recorded Time Benign essential hypertens ion 7828058 Active Leticia Gonzalez MD [address] [facility], [address], [place], [address], [facility] 6 22:00:47 Acute non-suppu rative serous otitis media 950646701 Active Leticia Gonzalez MD [address] [facility], [address], [place], [address], [facility] 6 09:32:19 Skin sensation disturban ce 79615511 Active Leticia Gonzalez MD [address] [address], [place], [place], [address] [place] [address], [facility] 6 09:32:19 Pain of hip region [id number] Akil Gonzalez MD [address] [address], [facility] 6 09:32:19 Disorder of urinary tract 13489709 Active Leticia Gonzalez MD [address] [address], [facility] 6 09:32:19 Syncope and collapse [id number] Akil Gonzalez MD [address] [address], [facility] 6 09:32:19 Rheumatic aortic regurgita tion 08497207 Active Trace Leticia Gonzalez MD [address], [address] [place] [address], [facility] 2 18:25:14 Acute sinusitis [id number] Akil Gonzalez MD [address] [address], [facility] 6 09:32:19 Cerebrova scular disease 77482696 Active Leticia Gonzalez MD [address], [address] [place] [address], [facility] 6 09:32:19 Knee pain Active Leticia Gonzalez MD [address], [address] [place] [address], [facility] 6 09:32:19 Rheumatic mitral regurgita tion [id number] Akil Gonzalez MD [address] [address], [place] - [facility] 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 6 09:32:19 Hyperlipi demia 64942165 Active Leticia Gonzalez MD [address] [address], [place] - [facility] 6 22:00:47 Facial nerve disorder 669350345 Active Leticia Gonzalez MD [address] [address], [place] - [facility] 6 09:32:19 Hypothyro idism 94886424 Active Leticia Gonzalez MD [address] [address], [place] - [facility] 6 22:00:47 Malaise and fatigue 429095148 Active Leticia Gonzalez MD [address] [address], [place] - [facility] 6 09:32:19 Neuropath y 502683848 Active Leticia Gonzalez MD [address] [address], [place] - [facility] 6 09:32:19 Tick bite 30080667 Active Leticia Gonzalez MD [address] [address], [place] - [facility] 6 09:32:19 Erythema chronica migrans 03332505 Active Leticia Gonzalez MD [address] [address], [facility] 6 09:32:19 Near syncope 811334005 Active Leticia Gonzalez MD [address] [facility], [place], [place], [address] [place] [address] 7, [facility] 6 22:00:47 History of lacunar cerebrova scular accident 551289292635 01 Active Leticia Gonzalez MD [address], [address] [place] [address], [facility] 9 21:52:58 Rheumatic mitral stenosis with regurgita tion 745124 Active Leticia Gonzalez MD [address], [address] [place] [address], [facility] 18:17:17 History of amaurosis fugax 034234368591 28793 Completed 07/17/2022 Leticia Gonzalez MD [address] [address], [place], [place], [address] [place] [address], [facility] 18:17:48 Problem Notes None recorded. Procedures Surgical History Date Name Laterality Status Provider Name and Address Organization Details Recorded Time 04/19/20 17 Colonoscopy completed Leticia Gonzalez MD [address], [address] [place] [address], [facility] 11/14/2018 21:41:37 08/04/20 07 Colonoscopy completed [facility] 09/07/2013 15:18:04 09/20/18 82 Cholecystectomy completed [facility] 08/06/2011 16:54:24 09/20/18 81 Tubal Ligation completed [facility] 08/06/2011 16:54:24 Imaging Results None recorded. Procedure Notes None recorded. Medical Equipment None Reported. Allergies Allergen ID Allergen Name Allergen Category Reaction Reaction Severity Criticality Documentation Date Start Date Code Code System Note Provider Name and Address Organization Details Recorded Time 4026 codeine medicatio n rash Not available Not available 08/06/2011 2670 RxNorm [facility] 1 16:54:24 4027 Substance with sulfonami de structure and antibacte rial mechanism of action (substanc e) medicatio n rash Not available Not available 08/06/2011 05886 8003 SNOMED [facility] 1 16:54:24 Medications Name Sig Start Date Stop Date Status Note LastModified by Organization Details LastModified Time amoxicillin 500 mg capsule Take 2 capsules every 12 hours by oral route for 10 days. 09/15 completed Not Available Not Available Not Available prednisone 10 mg tablet 2 po qid for 3 days, then 2 po tid for 3 days, then 2 po bid for 3 days, then 1 po bid for 4 days then 1 po daily or as directed. 08/28 completed Not Available Not Available Not Available azithromyci n 250 mg tablet Take 2 tablets (500 mg) by oral route once daily for 1 day then 1 tablet (250 mg) by oral route once daily for 4 days 07/09 completed Not Available Not Available Not Available benzonatate 200 mg capsule Take 1 capsule 3 times a day by oral route as needed. 08/05 completed Not Available Not Available Not Available metoprolol succinate ER 50 mg tablet,exte nded release 24 hr Take 1 tablet twice a day by oral route for 90 days. 12/17 completed Not Available Not Available Not Available lisinopril 20 mg tablet TAKE TWO TABLETS BY MOUTH EVERY DAY 2014 active Not Available Not Available Not Avai lable lovastatin 40 mg tablet TAKE 1 TABLET BY MOUTH IN THE EVENING active Not Available Not Available No t Available metoprolol succinate ER 100 mg tablet,exte nded release 24 hr TAKE 1/2 (ONE-HALF ) TABLET BY MOUTH TWICE DAILY active Not Available Not Available No t Available ciprofloxac in 250 mg tablet TAKE 1 TABLET BY MOUTH EVERY 12 HOURS FOR 5 DAYS 05/06 completed Not Available Not Available Not Available amlodipine 5 mg tablet TAKE 1 TABLET BY MOUTH ONCE DAILY 05/27 completed Not Available Not Available Not Available aspirin 81 mg tablet,adrianna yed release Take 1 tablet every day by oral route. active Not Available Not Available No t Available spironolact one 25 mg tablet TAKE 1/2 TABLET BY MOUTH ONCE DAILY 03/16 completed Not Available Not Available Not Available levothyroxi ne 25 mcg tablet TAKE ONE TABLET BY MOUTH ONCE DAILY 06/16 completed Not Available Not Available Not Available ketorolac 0.5 % eye drops INSTILL 1 DROP 4 TIMES DAILY TO AFFECTED EYE, START AFTER SURGERY 07/20 completed Not Available Not Available Not Available potassium chloride ER 20 mEq tablet,exte nded release(par t/cryst) TAKE 1 TABLET BY MOUTH ONCE DAILY active Not Available Not Available No t Available prednisolon e acetate 1 % eye drops,suspe nsion INSTILL 1 DROP 4 TIMES DAILY INTO THE AFFECTED EYE, START AFTER SURGERY 01/15 completed Not Available Not Available Not Available levothyroxi ne 50 mcg tablet TAKE 1 TABLET BY MOUTH ONCE DAILY active Not Available Not Available No t Available cephalexin 500 mg capsule Take 2 capsules twice a day by oral route for 10 days. 10/20 completed Not Available Not Available Not Available oseltamivir 75 mg capsule TAKE 1 CAPSULE BY MOUTH TWICE DAILY FOR 5 DAYS 10/30 completed Not Available Not Available Not Available hydrochloro thiazide 12.5 mg capsule TAKE 1 CAPSULE BY MOUTH ONCE DAILY NEEDED active Not Available Not Available No t Available Valtrex 1 gram tablet Take 1 tablet every 12 hours by oral route for 10 days. 04/13 completed Not Available Not Available Not Available hydralazine 50 mg tablet TAKE 1 TABLET BY MOUTH TWICE DAILY active Not Available Not Available No t Available aspirin 81 mg tablet Take 1 tablet every day by oral route. 05/27 completed Not Available Not Available Not Available hydrochloro thiazide 25 mg tablet TAKE 1 TABLET BY MOUTH ONCE DAILY 01/13 completed Not Available Not Available Not Available mupirocin 2 % topical ointment APPLY A SMALL AMOUNT TO THE AFFECTED AREA BY TOPICAL ROUTE 2 TIMES PER DAY 05/06 completed Not Available Not Available Not Available gabapentin 100 mg capsule 1-2 po q pm for foot pain 05/11 completed Not Available Not Available Not Available dexamethaso ne sodium phosphate 4 mg/mL injection solution Take 0.5 mL by injection route. 07/06 completed Not Available Not Available Not Available lovastatin 20 mg tablet TAKE 2 TABLETS BY MOUTH IN THE EVENING 02/28 completed Not Available Not Available Not Available lisinopril 40 mg tablet TAKE 1 TABLET BY MOUTH ONCE DAILY 03/16 completed Not Available Not Available Not Available colestipol 1 gram tablet TAKE 1 TO 2 TABLETS BY MOUTH TWICE DAILY FOR OVERACTIV E BOWEL SYNDROME IF NEEDED 05/11 completed Not Available Not Available Not Available doxycycline hyclate 100 mg tablet Take 1 tablet twice a day by oral route for 15 days. 04/02 completed Not Available Not Available Not Available Tessalon Perle 100 mg capsule Take 1 capsule 3 times a day by oral route as needed. 2011 active Not Available Not Available Not Avai lable moxifloxaci n 0.5 % eye drops INSTILL 1 DROP 4 TIMES DAILY TO AFFECTED EYE START 2 DAYS PRIOR TO SURGERY 01/15 completed Not Available Not Available Not Available Boostrix Tdap 2.5 Lf unit-8 mcg-5 Lf/0.5 mL intramuscul ar syringe PHARMACIS T ADMINISTE RED IMMUNIZAT ION ADMINISTE RED AT TIME OF DISPENSIN G 05/06 completed Not Available Not Available Not Available potassium chloride 1 po daily otc 02/01 completed Not Available Not Available Not Available garlic 1 capsule PO daily 12/05 completed Not Available Not Available Not Available Fish Oil 1 capsule PO daily active Not Available Not Available No t Available Vitamin D3 1000 units daily active Not Available Not Available No t Available Metamucil 1-2 gummies daily prn active Not Available Not Available No t Available cholecalcif inderjit (vitamin D3) 25 mcg (1,000 unit) tablet TAKE 1 TABLET BY MOUTH ONCE DAILY active Not Available Not Available No t Available Suprep Bowel Prep Kit 17.5 gram-3.13 gram-1.6 gram oral solution 04/16 completed Not Available Not Available Not Available Fiber (calcium polycarboph il) 1 po daily. 12/05 completed Not Available Not Available Not Available Xarelto 2.5 mg tablet TAKE 1 TABLET BY MOUTH TWICE DAILY active Not Available Not Available No t Available Fluzone High-Dose 2018- (PF) 180 mcg/0.5 mL intramuscul ar syringe PHARMACIS T ADMINISTE RED IMMUNIZAT ION ADMINISTE RED AT TIME OF DISPENSIN G 05/06 completed Not Available Not Available Not Available Fluzone High-Dose Quad (PF) 240 mcg/0.7 mL IM syringe PHARMACIS T ADMINISTE RED IMMUNIZAT ION ADMINISTE RED AT TIME OF DISPENSIN G 07/13 completed Not Available Not Available Not Available Vitals Date Recorded Body height Body mass index (BMI) Body weight Heart rate Oxygen saturation Oxygen saturation in Arterial blood by Pulse oximetry Body temperature Systolic blood pressure Diastolic blood pressure Provider Name and Address Organization Details Last Updated DateTime 5 160.02 cm 36.8 kg/m2 46954.4 2 g 70 /min 94 % 94 % 97.2 [degF] 139 mm[Hg] 72 mm[Hg] [facility] 5 10:04:34 Social History Question Answer Notes LastModified by Organizat ion Details LastModified Time Tobacco Smoking Status Never Smoker Not Available [facility] 07/16/2020 03:11:19 Do You Have An Advance Directive? No [id number] Information not available 07/16/2020 Animal Exposure? Yes Informat ion not available 03/26/2014 Auto Related Injury? No Information not available 08/06/2011 Is Blood Transfusion Acceptable In An Emergency? Yes [id number] Information not available 07/16/2020 What Is Your Level Of Caffeine Consumption? Occasional [id number] Information not available 07/16/2020 How Much Tobacco Do You Chew? None [id number] Information not available 07/16/2020 Diabetes No Information no t available 08/06/2011 What Type Of Diet Are You Following? REGULAR [id number] Information not available 07/16/2020 Which Illicit Or Recreational Drugs Have You Used? None [id number] Information not available 07/16/2020 Education 12 Information no t available 08/06/2011 What Is The Highest Grade Or Level Of School You Have Completed Or The Highest Degree You Have Received? [id number] Information not available 05/27/2021 Family History Of Heart Disease? No Information not available 08/06/2011 Which Of Your Hands Is Dominant? Right [id number] Information not available 07/16/2020 High Blood Pressure Yes Information not available 08/06/2011 High Cholesterol Yes Informat ion not available 08/06/2011 Live Alone Or With Others? With Others Information not available 08/06/2011 Marital Status Informatio n not available 08/06/2011 What Was The Date Of Your Most Recent Tobacco Screening? 07/31/2024 Information not available 07/31/2024 How Many Children Do You Have? 4 [id number] Information not available 07/16/2020 What Is Your Relationship Status? Information not available 05/27/2021 Do You Use Your Seat Belt Or Car Seat Routinely? Yes [id number] Information not available 07/16/2020 Seat Belts Used Routinely Yes Information not available 03/26/2014 Smoke Alarm In Home Yes Information not available 03/26/2014 How Much Tobacco Do You Smoke? No [id number] Information not available 07/16/2020 General Stress Level Low Information not available 08/06/2011 Do You Use Sunscreen Routinely? No [id number] Information not available 07/16/2020 Work Related Injury? No Information not available 08/06/2011 Sex: Unknown Functional Status Question Answer Note LastModified by Organizat ion Details LastModified Time What is your level of alcohol consumption? None [id number] Information not available 07/16/2020 Are you currently employed? No Information not available 05/11/2023 Are you able to care for yourself? 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 None [id number] Information not available 07/16/2020 Mental Status None recorded. Family History Relationship Description Onset Age of this Age Resolved Age Notes LastModified by Organization Details LastModified Time Sister Malignant neoplastic disease previo usly record ed as Cancer Not available 12/03/2015 09:32:58 Mother Problem 72 [employer] [place] Not available 12/03/2015 09:32:57 Son Myocardial infarction 48 smoker and had a stent Not available 11/14/2018 11:28:53 Notes:she was raised by her grandparents. Medical History Condition Response Coronary Artery Disease N Gout N Kidney Stones N Blood Diseases N Hyperthyroidism N COPD N Hypothyroidism Y Depression N Developmental or Behavioral Disorders N Eczema, Hives or other skin conditions N Anxiety Disorder N Muscle, Joint, or Bone Problems N Vision or Eye Problems N Arthritis N Serious Illness or Injuries N Congenital Anomalies N Cancer N Stroke N Bladder or Kidney Problems N Hospital Admission other than N High Cholesterol Y Liver Disease N Fibromyalgia N Kidney Disease N Heart Problems Y Ear or Hearing Problems N ADD or ADHD N Thyroid Problems N Skin Problems N Anemia N Constipation N Diabetes N Bedwetting N Seizures/Epilepsy N Tuberculosis N Diverticulitis N Asthma N Allergies N GERD/Reflux N Heart Disease N Pulmonary Embolism N Hypertension Y Osteoporosis N Chicken Pox N Gynecological History Statement/Question Response If Post Menopausal, Age at Menopause 55 Obstetrics History GPAL:G 4 P 4 0 0 4 Type Value Multiple Births 4 Full Term 4 Living 4 Total 4 Immunizations Vaccine Type Date Status Note Provider Nam e and Address Organization Details Recorded Time pneumococcal polysaccharide PPV23 7 completed Not Available [facility] 10/07/2019 02:12:07 Influenza, high-dose, trivalent, PF 7 completed Not Available [facility] 10/07/2019 02:12:13 Influenza, recombinant, quadrivalent, PF 8 completed Not Available [facility] 10/07/2019 02:12:13 Influenza, high-dose, quadrivalent, PF 1 completed Not Available [facility] 05/27/2021 13:47:46 Influenza, high-dose, quadrivalent, PF 3 completed [facility] 01/18/2023 08:12:23 Influenza, high-dose, quadrivalent, PF 3 completed Leticia Gonzalez MD [address] [facility], [place], [address], [facility] 07/21/2023 21:02:23 Pneumococcal conjugate PCV 13 6 completed Not Available [facility] 10/21/2019 02:12:32 Influenza, high-dose, trivalent, PF 4 completed Leticia Gonzalez MD [address] [address], [place], [address], [facility] 08/01/2024 00:10:56 COVID-19, mRNA, LNP-S, PF, christian-sucrose, 30 mcg/0.3 mL 4 completed Leticia Gonzalez MD [address] [address], [place], [address], [facility] 08/01/2024 00:10:56 Influenza, high-dose, trivalent, PF 6 completed [facility] 07/24/2016 11:40:28 Pneumococcal conjugate PCV20, polysaccharide [id number] conjugate, adjuvant, PF 5 completed [facility] 02/01/2025 13:48:24 Tdap 9 completed Leticia Gonzalze MD [address] [address], [place], [address], [facility] 04/17/2019 20:27:08 Influenza, high-dose, trivalent, PF 9 completed [facility] 07/14/2019 11:30:58 Influenza, high-dose, trivalent, PF 0 completed [facility] 06/24/2020 20:06:36 SARS-COV-2 (COVID-19) vaccine, UNSPECIFIED 1 completed Leticia Gonzalez MD [address] [address], [place], [place], [address] [place] [address], [facility] 12/08/2020 09:48:26 COVID-19 vaccine, vector-nr, rS-Ad26, PF, 0.5 mL 1 completed Leticia Gonzalez MD [address] [address], [place], [place], [address] [place] [address], [facility] 12/05/2021 13:49:50 COVID-19, mRNA, LNP-S, PF, 100 mcg/0.5mL dose or 50 mcg/0.25mL dose 1 completed Leticia Gonzalez MD [address], [address] [place] [address], [facility] 12/05/2021 13:50:22 COVID-19, mRNA, LNP-S, PF, 100 mcg/0.5mL dose or 50 mcg/0.25mL dose 2 completed [facility] 04/17/2022 15:42:36 Influenza, split virus, trivalent, preservative 2 completed Leticia Gonzalez MD [address] [address], [place], [place], [address] [place] [address], [facility] 09/05/2012 17:31:25 Td (adult) 8 completed [facility] 09/07/2013 15:18:37 Influenza, split virus, trivalent, preservative 3 completed Leticia Gonzalez MD [address], [address] [place] [address], [facility] 09/18/2013 16:38:12 Past Encounters Encounter ID Performer Location Encounter Start Date Encounter Closed Date Diagnosis/Indication Diagnosis SNOMED-CT Code Diagnosis ICD10 Code Diagnosis Note [id number] Leticia Gonzalez MD [facility] [address], [address] [place] [address] 02/01/2025 09:40:26 02/01/2025 16:06:30 Essential hypertension 58835857 I10 Hypothyroidism 97396637 E03.9 Hyperlipidemia 95805266 E78.5 Depression screening 171 457830 Z13.89 History of lacunar cerebrovascular accident 6345159477 9101 Z86.73 Mammogram declined 91358 5004 Z53.20 History of amaurosis fugax 2552006550 6594531 Z86.69 Long-term current use of anticoagulant 170111969 Z79.01 Active or passive immunization 434506208 Z23 Medication review done by doctor 997912650 Z76.89 Body mass index 30+ - obesity 033852526 Z68.36 Health Concerns Section Related Observation LastModified by Organization Detai ls LastModified Time None Recorded Concern Status LastModified by Organization Details LastModified Time None Recorded Payers Encounter Date Sequence Insurance Name Policy Number Policy Beyer Covered Member ID Beyer Member ID Guarantor Name 02/01/2025 1 [employer] (MEDICARE REPLACEMENT/ ADVANTAGE - PPO) Margi Valdez [id number] Margi Valdez OBGyn Episode No OBEpisode recorded.
--- OUTSIDE RECORDS SUMMARY | 2025-03-06 01:16 | XMS_ITS | Data Portability ---
Author Organization [facility] Address [address] [place] [address] Care Team Providers Care Stenotype Machine Operator Name Role Phone SONY GARCIA Referring Provider [phone] ESPINOZA HOLLAND Referring Provider PETER LAUREANO Referring Provider [phone] Assessment Encounter Date Assessment Date Assessment LastModified by Organization Details LastModified Time 07/20/2023 07/20/2023 Margi presents for her annual wellness visit. Her medical status is stable. She continues to struggle with her weight and we encourage healthy choices and some increase in activity. In addition she has been struggling with recurrent loose bowels and dumping syndrome. Because of this she really does not leave her home often. 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 Labs are reviewed and cholesterol is controlled. There is moderate decrease in renal function but it is stable. She admits to not drinking much water or fluids and we encourage more water intake. She was over medicated last year on a low dose of thyroid medication but labs show that she euthyroid. We discussed adding a fiber gummy supplement to help as well. Medications are reconciled. The blood pressure is controlled. She does have a history of lacunar infarcts several years ago but with adequate control of the blood pressure there has not been a recurrence. She has had no further syncopal spells. She continues to follow with her proprietary trader, Dr. Espinoza Holland, for the rheumatic moderate mitral valve stenosis. Electrocardiogram shows a sinus bradycardia with rate of 57 and a stable first degree AV block. Her proprietary trader did begin Xarelto last year for the history of amaurosis fugax. She had a front desk monitor and there was no evidence for atrial fibrillation. She advises me that her proprietary trader is considering stopping the Xarelto and just continuing the aspirin. 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 Depression screen is negative and fall risk is low. However she has had significant stress with the untimely of a son. Vaccines are reviewed and she receives the flu vaccine today. She should get the new covid booster vaccine in July or August. We encourage healthy lifestyle changes. BMI is recommended to be under 30 % for best health. We recommend mammogram but she has declined again. She did have a colonoscopy at [facility] in 2016 and will be due again in 2026. A calculated ten year CV risk is 12.83%. We continue to encourage healthy lifestyle choices. channing Not available 07/21/2023 21:12:53 02/03/2024 02/03/2024 Margi presents for her six month visit. Her medical status is stable except for a significant decrease in the GFR. She admits to not drinking much water or eating much ever although she remains quite obese. She continues to struggle with her weight and we encourage healthy choices and some increase in activity. In addition she has been struggling with recurrent loose bowels and dumping syndrome. Because of this she really does not leave her home often. 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 Labs are reviewed and cholesterol is controlled. There is moderate decrease in renal function but it is stable. She admits to not drinking much water or fluids and we encourage more water intake. She was over medicated last year on a low dose of thyroid medication but labs show that she is euthyroid. We discussed adding a fiber gummy supplement to help as well and she does note that fiber has helped her bowel issue not be as frequent but she will still leak and not realize that. Her last colonoscopy showed left sided diverticulosis and internal hemorrhoids in 2016 so she is due again in 2026. Medications are reconciled. The blood pressure is controlled. She does have a history of lacunar infarcts several years ago but with adequate control of the blood pressure there has not been a recurrence. She has had no further syncopal spells. She continues to follow with her proprietary trader, Dr. Espinoza Holland, for the rheumatic moderate mitral valve stenosis. Electrocardiogram shows a sinus bradycardia with rate of 57 and a stable first degree AV block. Her proprietary trader did begin Xarelto last year for the history of amaurosis fugax. She had a front desk monitor and there was no evidence for atrial fibrillation. She advises me that her proprietary trader is considering stopping the Xarelto and just continuing the aspirin. 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 Vaccines are reviewed. She should get the new covid booster and flu vaccines in the fall. We encourage healthy lifestyle changes. BMI is recommended to be under 30 % for best health. We recommend mammogram but she has declined again. She did have a colonoscopy at [facility] in 2016 and will be due again in 2026. We continue to encourage healthy lifestyle choices. channing Not available 02/03/2024 23:47:55 07/31/2024 07/31/2024 Margi presents for her annual wellness visit. Her medical status is stable. She continues [...] reviewed and cholesterol is controlled. There is moderate decrease in renal function and she has been referred to nephrology. She has apparently had an evaluation with a follow up later this month. She admits to not drinking much water or fluids and we encourage more water intake. She was over medicated last year on a low dose of thyroid medication but labs show that she euthyroid. She continues to have a slight elevation of inflammatory markers and this seems to be chronic. Medications are reconciled. The blood pressure is controlled. She does have a history of lacunar infarcts several years ago but with adequate control of the blood pressure there has not been a recurrence. She has had no further syncopal spells. She continues to follow with her proprietary trader, Dr. Espinoza Holland, for the rheumatic moderate mitral valve stenosis. Her proprietary trader did begin Xarelto a couple of years ago for the history of amaurosis fugax. She had a front desk monitor and there was no evidence for atrial fibrillation. 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 Depression screen is negative and fall risk is low. However she has had significant stress with the untimely of a son previously. Vaccines are reviewed and she receives the flu and covid vaccines today. We encourage healthy lifestyle changes. BMI is recommended to be under 30 % for best health. We recommend mammogram but she has declined again. She did have a colonoscopy at [facility] in 2017 and will be due again in 2026. A calculated ten year CV risk is 18.69%. Medications are reconciled. We continue to encourage healthy lifestyle choices. channing Not available 08/01/2024 00:26:47 11/10/2024 11/10/2024 Mrs. Valdez w as recently in the emergency room for severe symptoms of influenza A. She was found to have a very low potassium. She also figured out that some of shortness of breath and severe malaise/sleepiness was from a carbon monoxide problem in their home. They have fixed the problem with their gas heater and now have a CO monitor in their home. She is feeling better and apparently has been taking an over the counter potassium supplement. We are checking labs for the BMP and her potassium is 3.2. At this point we will advise a prescription potassium supplement rather than the over the counter. We will continue to follow her labs. channing Not available 11/11/2024 09:45:46 02/01/2025 02/01/2025 Margi presents for a check [...] spells. She continues to follow with her proprietary trader, Dr. Espinoza Holland, for the rheumatic moderate mitral valve stenosis. Her proprietary trader did begin Xarelto a couple of years ago for the history of amaurosis fugax. She had a front desk monitor and there was no evidence for [...] again. She did have a colonoscopy at [facility] in 2017 and will be due again in 2026. We continue to encourage healthy lifestyle choices. channing Not available 02/01/2025 13:31:04 Plan of Treatment Reminders Order Date Submit Date Provider Last Modified By Organization Details Last Modified Time Details Appointments None recorded. Lab BMP, serum or plasma 2024 025 [facility], [address], [place], [address], 08:19:29 unlisted lab - cystatin C with eGFR 2023 024 [facility], [address], [place], [address], 4 10:40:15 PTH (parathyroi d hormone), intact, serum or plasma 2023 024 [facility], [address], [place], [address], 4 10:40:13 vitamin D, 25-hydroxy, total, serum 2023 024 [facility], [address], [place], [address], 4 10:40:14 phosphorus, serum or plasma 2023 024 [facility], [address], [place], [address], 4 10:40:14 microalbumi n/creatinin e, mass ratio, urine 2023 024 [facility], [address], [place], [address], 4 10:40:12 Referral nephrologis t referral 2023 024 [email or web address], [address], [place], [address], 4 14:49:16 Procedures None recorded. Surgeries None recorded. Imaging None recorded. Medication Orders potassium chloride ER 20 mEq tablet,exte nded release(par t/cryst) 2024 025 [facility], [address], [place], [address], 5 09:46:48 Patient TargetsNo targets recorded. Patient Instructions Encounter Date Encounter Id Patient Instructions Last Modified By Organization Details Last Modified Time 07/20/2023 [id number] taking direct or al anticoagulants safely: care instructions Not available 07/21/2023 21:14:06 learning about t he mediterranean diet Not available 07/21/2023 21:14:07 02/03/2024 [id number] medicines to price id with kidney disease: care instructions Not available 02/03/2024 10:52:03 taking direct or al anticoagulants safely: care instructions Not available 02/03/2024 10:52:04 learning about t he mediterranean diet Not available 02/03/2024 10:52:03 07/31/2024 [id number] taking direct or al anticoagulants safely: care instructions Not available 07/31/2024 12:06:20 learning about t he mediterranean diet Not available 07/31/2024 12:06:20 02/01/[id number] taking direct or al anticoagulants safely: care instructions Not available 02/01/2025 13:31:41 learning about t he mediterranean diet Not available 02/01/2025 13:31:41 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 Referral for Ch ronic kidney disease stage 4 Referring Physician: Leticia Gonzalez, Family Medicine, Encounter Date: 02/03/2024 Results Created Date Observation Date Name Description Value Unit Range Abnormal Flag Note LastModifiedBy Organization Detail LastModifiedTime 07/13/2007/14/2023 LIPID PANEL , STAND TATUM cholesterol, total 147 mg/dL <200 normal Not Available [facility] [address] [place], [address], 07/14/2023 10:33:27 07/13/2007/14/2023 LIPID PANEL , STAND TATUM HDL cholesterol 58 mg/dL > or = 50 normal Not Available [facility] [address] [place], [address], 07/14/2023 10:33:27 07/13/2007/14/2023 LIPID PANEL , STAND TATUM triglyceride s 153 mg/dL <150 high Not Available [facility] [address] [place], [address], 07/14/2023 10:33:27 07/13/20 23 07/14/2023 LIPID PANEL , STAND TATUM LDL-choleste rol 65 mg/dL _(darrion c) normal Refer ence range : <100 Michi able range <100 mg/dL for prima ry preve ntion ; <70 mg/dL for patie nts with CHD or diabe tic patie nts with > or = 2 CHD risk facto rs. LDL-C is now calcu lated using the Adina n-Hop kins calcu latio n, which is a valid ated novel metho d provi ding chuy r accur acy than the Fried manuelito equat ion in the estim ation of LDL-C . Adina shields SS et al. KENDELL. 2013; 310(1 9): 2061- 2068 (http ://ed ucati on.Qu estDi [employer]. com/f aq/FA Q164) Not Available [facility] [address] [facility], [place], [address], 07/14/2023 10:33:27 07/13/2007/14/2023 LIPID PANEL , STAND TATUM chol/HDLC ratio 2.5 (calc ) <5.0 normal Not Available [facility] [address] [facility], [place], [address], 07/14/2023 10:33:27 07/13/2007/14/2023 LIPID PANEL , STAND TATUM non HDL cholesterol 89 mg/dL _(darrion c) <130 normal For patie nts with diabe miguel angel plus 1 major ASCVD risk facto r, treat ing to a non-H DL-C goal of <100 mg/dL (LDL- C of <70 mg/dL ) is consi amelie carreono n. Not Available [facility] [address] [facility], [place], [address], 07/14/2023 10:33:27 07/13/2007/14/2023 COMPR EHENS ADRIAN METAB OLIC PANEL glucose 88 mg/dL 65-99 normal Fasti ng refer ence inter re Not Available [facility] [address] [place], [address], 07/14/2023 10:33:28 07/13/2007/14/2023 COMPR EHENS ADRIAN METAB OLIC PANEL urea nitrogen (BUN) 30 mg/dL 7-25 high Not Available [facility] [address] [place], [address], 07/14/2023 10:33:28 07/13/2007/14/2023 COMPR EHENS ADRIAN METAB OLIC PANEL creatinine 1.33 mg/dL 0.60-1 .00 high Not Available [facility] [address] [place], [address], 07/14/2023 10:33:28 07/13/2007/14/2023 COMPR EHENS ADRIAN METAB OLIC PANEL eGFR 43 mL/mi n/1.7 3m2 > or = 60 low Not Available [facility] [address] [place], [address], 07/14/2023 10:33:28 07/13/2007/14/2023 COMPR EHENS ADRIAN METAB OLIC PANEL BUN/creatini ne ratio 23 (calc ) 6-22 high Not Available [facility] [address] [place], [address], 07/14/2023 10:33:28 07/13/20 23 07/14/2023 COMPR EHENS ADRIAN METAB OLIC PANEL sodium 140 mmol/ L 135-14 6 normal Not Available [facility] [address] [place], [address], 07/14/2023 10:33:28 07/13/20 23 07/14/2023 COMPR EHENS ADRIAN METAB OLIC PANEL potassium 4.2 mmol/ L 3.5-5. 3 normal Not Available [facility] [address] [place], [address], 07/14/2023 10:33:28 07/13/2007/14/2023 COMPR EHENS ADRIAN METAB OLIC PANEL chloride 103 mmol/ L 98-110 normal Not Available [facility] [address] [place], [address], 07/14/2023 10:33:28 07/13/2007/14/2023 COMPR EHENS ADRIAN METAB OLIC PANEL carbon dioxide 29 mmol/ L 20-32 normal Not Available [facility] [address] [place], [address], 07/14/2023 10:33:28 07/13/2007/14/2023 COMPR EHENS ADRIAN METAB OLIC PANEL calcium 10.0 mg/dL 8.6-10 .4 normal Not Available [facility] [address] [place], [address], 07/14/2023 10:33:28 07/13/2007/14/2023 COMPR EHENS ADRIAN METAB OLIC PANEL protein, total 6.6 g/dL 6.1-8. 1 normal Not Available [facility] [address] [place] [address], [address], 07/14/2023 10:33:28 07/13/2007/14/2023 COMPR EHENS ADRIAN METAB OLIC PANEL albumin 4.0 g/dL 3.6-5. 1 normal Not Available [facility] [address] [place] [address], [address], 07/14/2023 10:33:28 07/13/2007/14/2023 COMPR EHENS ADRIAN METAB OLIC PANEL globulin 2.6 g/dL_ (calc ) 1.9-3. 7 normal Not Available [facility] [address] [place], [place] [address] [place], [address], 07/14/2023 10:33:28 07/13/2007/14/2023 COMPR EHENS ADRIAN METAB OLIC PANEL albumin/glob ulin ratio 1.5 (calc ) 1.0-2. 5 normal Not Available [facility] [address] [facility] [place], [address], 07/14/2023 10:33:28 07/13/2007/14/2023 COMPR EHENS ADRIAN METAB OLIC PANEL bilirubin, total 0.7 mg/dL 0.2-1. 2 normal Not Available [facility] [address] [facility] [place], [address], 07/14/2023 10:33:28 07/13/2007/14/2023 COMPR EHENS ADRIAN METAB OLIC PANEL alkaline phosphatase 70 U/L 37-153 normal Not Available [facility] [address] [facility] [place], [address], 07/14/2023 10:33:28 07/13/2007/14/2023 COMPR EHENS ADRIAN METAB OLIC PANEL AST 14 U/L 10-35 normal Not Available [facility] [address] [facility] [place], [address], 07/14/2023 10:33:28 07/13/2007/14/2023 COMPR EHENS ADRIAN METAB OLIC PANEL ALT 11 U/L 6-29 normal Not Available [facility] [address] [facility] [place], [address], 07/14/2023 10:33:28 07/13/2007/14/2023 TSH TSH 2.88 mIU/L 0.40-4 .50 normal Not Available [facility] [address] [facility] [place], [address], 07/14/2023 10:33:28 07/13/2007/14/2023 CBC (INCL UDES DIFF/ PLT) white blood cell count 7.1 thous and/u L 3.8-10 .8 normal Not Available [facility] [address] [facility] [place], [address], 07/14/2023 10:33:29 07/13/2007/14/2023 CBC (INCL UDES DIFF/ PLT) red blood cell count 3.74 graham on/uL 3.80-5 .10 low Not Available [facility] [address] [facility] [place], [address], 07/14/2023 10:33:29 07/13/2007/14/2023 CBC (INCL UDES DIFF/ PLT) hemoglobin 12.6 g/dL 11.7-1 5.5 normal Not Available [facility] [address] [facility], [place], [address], 07/14/2023 10:33:29 07/13/2007/14/2023 CBC (INCL UDES DIFF/ PLT) hematocrit 37.7 % 35.0-4 5.0 normal Not Available [facility] [address] [facility] [place], [address], 07/14/2023 10:33:29 07/13/2007/14/2023 CBC (INCL UDES DIFF/ PLT) MCV 100.8 fL 80.0-1 00.0 high Not Available [facility] [address] [facility] [place], [address], 07/14/2023 10:33:29 07/13/2007/14/2023 CBC (INCL UDES DIFF/ PLT) MCH 33.7 pg 27.0-3 3.0 high Not Available [facility] [address] [facility] [place], [address], 07/14/2023 10:33:29 07/13/2007/14/2023 CBC (INCL UDES DIFF/ PLT) MCHC 33.4 g/dL 32.0-3 6.0 normal Not Available [facility] [address] [facility], [place], [address], 07/14/2023 10:33:29 07/13/2007/14/2023 CBC (INCL UDES DIFF/ PLT) RDW 11.7 % 11.0-1 5.0 normal Not Available [facility] [address] [facility], [place], [address], 07/14/2023 10:33:29 07/13/2007/14/2023 CBC (INCL UDES DIFF/ PLT) platelet count 201 thous and/u L 140-40 0 normal Not Available [facility] [address] [facility], [place], [address], 07/14/2023 10:33:29 07/13/2007/14/2023 CBC (INCL UDES DIFF/ PLT) MPV 11.1 fL 7.5-12 .5 normal Not Available [facility] [address] [facility], [place], [address], 07/14/2023 10:33:29 07/13/2007/14/2023 CBC (INCL UDES DIFF/ PLT) absolute neutrophils 3969 cells /uL 1500-7 800 normal Not Available [facility] [address], [place], [address], 07/14/2023 10:33:29 07/13/2007/14/2023 CBC (INCL UDES DIFF/ PLT) absolute lymphocytes 2073 cells /uL 850-39 00 normal Not Available [facility] [address] [facility], [place], [address], 07/14/2023 10:33:29 07/13/2007/14/2023 CBC (INCL UDES DIFF/ PLT) absolute monocytes 817 cells /uL 200-95 0 normal Not Available [facility] [address], [place], [address], 07/14/2023 10:33:29 07/13/2007/14/2023 CBC (INCL UDES DIFF/ PLT) absolute eosinophils 192 cells /uL 15-500 normal Not Available [facility] [address], [place], [address], 07/14/2023 10:33:29 07/13/2007/14/2023 CBC (INCL UDES DIFF/ PLT) absolute basophils 50 cells /uL 0-200 normal Not Available [facility] [address], [place], [address], 07/14/2023 10:33:29 07/13/2007/14/2023 CBC (INCL UDES DIFF/ PLT) neutrophils 55.9 % normal Not Available [facility] [address], [place], [address], 07/14/2023 10:33:29 07/13/2007/14/2023 CBC (INCL UDES DIFF/ PLT) lymphocytes 29.2 % normal Not Available [facility] [address], [place], [address], 07/14/2023 10:33:29 07/13/2007/14/2023 CBC (INCL UDES DIFF/ PLT) monocytes 11.5 % normal Not Available [facility] [address], [place], [address], 07/14/2023 10:33:29 07/13/2007/14/2023 CBC (INCL UDES DIFF/ PLT) eosinophils 2.7 % normal Not Available [facility] [address], [place], [address], 07/14/2023 10:33:29 07/13/20 23 07/14/2023 CBC (INCL UDES DIFF/ PLT) basophils 0.7 % normal Not Available [facility] [address] [facility], [place], [address], 07/14/2023 10:33:29 01/31/20 24 02/01/2024 LIPID PANEL , STAND TATUM cholesterol, total 134 mg/dL <200 normal Not Available [facility] [address] [facility], [place], [address], 02/01/2024 13:55:05 01/31/20 24 02/01/2024 LIPID PANEL , STAND TATUM HDL cholesterol 57 mg/dL > or = 50 normal Not Available [facility] [address] [facility], [place], [address], 02/01/2024 13:55:05 01/31/20 24 02/01/2024 LIPID PANEL , STAND TATUM triglyceride s 94 mg/dL <150 normal Not Available [facility] [address] [facility], [place], [address], 02/01/2024 13:55:05 01/31/20 24 02/01/2024 LIPID PANEL , STAND TATUM LDL-choleste rol 59 mg/dL _(darrion c) normal Refer ence range : <100 Michi able range <100 mg/dL for prima ry preve ntion ; <70 mg/dL for patie nts with CHD or diabe tic patie nts with > or = 2 CHD risk facto rs. LDL-C is now calcu lated using the Adina n-Hop kins roldanu johnny n, which is a valid ated novel smita vera r accur acy than the Fried manuelito equat ion in the estim ation of LDL-C . Adina shields SS et al. KENDELL. 2013; 310(1 9): 2061- 2068 (http ://ed ucati on.Qu estDi rogelioos tics. com/f aq/FA Q164) Not Available [facility] [address] [facility] [place], [address], 02/01/2024 13:55:05 01/31/20 24 02/01/2024 LIPID PANEL , STAND TATUM chol/HDLC ratio 2.4 (calc ) <5.0 normal Not Available [facility] [address] [facility], [place], [address], 02/01/2024 13:55:05 01/31/20 24 02/01/2024 LIPID PANEL , STAND TATUM non HDL cholesterol 77 mg/dL _(darrion c) <130 normal For patie nts with diabe miguel angel plus 1 major ASCVD risk facto r, treat ing to a non-H DL-C goal of <100 mg/dL (LDL- C of <70 mg/dL ) is consi dered a thera peuti c optio n. Not Available [facility] [address] [facility] [place], [address], 02/01/2024 13:55:05 01/31/20 24 02/01/2024 COMPR EHENS ADRIAN METAB OLIC PANEL glucose 83 mg/dL 65-99 normal Fasti ng refer ence inter re Not Available [facility] [address] [facility] [place], [address], 02/01/2024 13:55:06 01/31/20 24 02/01/2024 COMPR EHENS ADRIAN METAB OLIC PANEL urea nitrogen (BUN) 42 mg/dL 7-25 high Not Available [facility] [address] [facility] [place], [address], 02/01/2024 13:55:06 01/31/20 24 02/01/2024 COMPR EHENS ADRIAN METAB OLIC PANEL creatinine 2.14 mg/dL 0.60-1 .00 high Not Available [facility] [address] [facility] [place], [address], 02/01/2024 13:55:06 01/31/20 24 02/01/2024 COMPR EHENS ADRIAN METAB OLIC PANEL eGFR 24 mL/mi n/1.7 3m2 > or = 60 low Not Available [facility] [address] [facility] [place], [address], 02/01/2024 13:55:06 01/31/20 24 02/01/2024 COMPR EHENS ADRIAN METAB OLIC PANEL BUN/creatini ne ratio 20 (calc ) 6-22 normal Not Available [facility] [address] [facility] [place], [address], 02/01/2024 13:55:06 01/31/20 24 02/01/2024 COMPR EHENS ADRIAN METAB OLIC PANEL sodium 138 mmol/ L 135-14 6 normal Not Available [facility] [address] [facility] [place], [address], 02/01/2024 13:55:06 01/31/20 24 02/01/2024 COMPR EHENS ADRIAN METAB OLIC PANEL potassium 4.3 mmol/ L 3.5-5. 3 normal Not Available [facility] [address] [facility] [place], [address], 02/01/2024 13:55:06 01/31/20 24 02/01/2024 COMPR EHENS ADRIAN METAB OLIC PANEL chloride 103 mmol/ L 98-110 normal Not Available [facility] [address] [facility] [place], [address], 02/01/2024 13:55:06 01/31/20 24 02/01/2024 COMPR EHENS ADRIAN METAB OLIC PANEL carbon dioxide 26 mmol/ L 20-32 normal Not Available [facility] [address] [place], [address], 02/01/2024 13:55:06 01/31/20 24 02/01/2024 COMPR EHENS ADRIAN METAB OLIC PANEL calcium 9.3 mg/dL 8.6-10 .4 normal Not Available [facility] [address] [place], [address], 02/01/2024 13:55:06 01/31/20 24 02/01/2024 COMPR EHENS ADRIAN METAB OLIC PANEL protein, total 6.4 g/dL 6.1-8. 1 normal Not Available [facility] [address] [place], [address], 02/01/2024 13:55:06 01/31/20 24 02/01/2024 COMPR EHENS ADRIAN METAB OLIC PANEL albumin 3.7 g/dL 3.6-5. 1 normal Not Available [facility] [address] [facility] [place], [address], 02/01/2024 13:55:06 01/31/20 24 02/01/2024 COMPR EHENS ADRIAN METAB OLIC PANEL globulin 2.7 g/dL_ (calc ) 1.9-3. 7 normal Not Available [facility] [address] [facility] [place], [address], 02/01/2024 13:55:06 01/31/20 24 02/01/2024 COMPR EHENS ADRIAN METAB OLIC PANEL albumin/glob ulin ratio 1.4 (calc ) 1.0-2. 5 normal Not Available [facility] [address] [place], [address], 02/01/2024 13:55:06 01/31/20 24 02/01/2024 COMPR EHENS ADRIAN METAB OLIC PANEL bilirubin, total 0.9 mg/dL 0.2-1. 2 normal Not Available [facility] [address] [facility] [place], [address], 02/01/2024 13:55:06 01/31/20 24 02/01/2024 COMPR EHENS ADRIAN METAB OLIC PANEL alkaline phosphatase 60 U/L 37-153 normal Not Available [facility] [address] [place], [address], 02/01/2024 13:55:06 01/31/20 24 02/01/2024 COMPR EHENS ADRIAN METAB OLIC PANEL AST 15 U/L 10-35 normal Not Available [facility] [address], [place], [address], 02/01/2024 13:55:06 01/31/20 24 02/01/2024 COMPR EHENS ADRIAN METAB OLIC PANEL ALT 9 U/L 6-29 normal Not Available [facility] [address], [place], [address], 02/01/2024 13:55:06 01/31/20 24 02/01/2024 TSH TSH 2.10 mIU/L 0.40-4 .50 normal Not Available [facility] [address] [place], [address], 02/01/2024 13:55:07 01/31/20 24 02/01/2024 SED RATE BY MODIF IED BRANDY REN sed rate by [facility] mm/h < or = 30 high Not Available [facility] [address], [place], [address], 02/01/2024 13:55:08 01/31/20 24 02/01/2024 CBC (INCL UDES DIFF/ PLT) white blood cell count 6.1 thous and/u L 3.8-10 .8 normal Not Available [facility] [address], [place], [address], 02/01/2024 13:55:08 01/31/20 24 02/01/2024 CBC (INCL UDES DIFF/ PLT) red blood cell count 3.66 graham on/uL 3.80-5 .10 low Not Available [facility] [address] [facility] [place], [address], 02/01/2024 13:55:08 01/31/20 24 02/01/2024 CBC (INCL UDES DIFF/ PLT) hemoglobin 12.2 g/dL 11.7-1 5.5 normal Not Available [facility] [address] [facility] [place], [address], 02/01/2024 13:55:08 01/31/2002/01/2024 CBC (INCL UDES DIFF/ PLT) hematocrit 36.0 % 35.0-4 5.0 normal Not Available [facility] [address] [place], [address], 02/01/2024 13:55:08 01/31/20 24 02/01/2024 CBC (INCL UDES DIFF/ PLT) MCV 98.4 fL 80.0-1 00.0 normal Not Available [facility] [address] [facility] [place], [address], 02/01/2024 13:55:08 01/31/20 24 02/01/2024 CBC (INCL UDES DIFF/ PLT) MCH 33.3 pg 27.0-3 3.0 high Not Available [facility] [address] [place], [address], 02/01/2024 13:55:08 01/31/20 24 02/01/2024 CBC (INCL UDES DIFF/ PLT) MCHC 33.9 g/dL 32.0-3 6.0 normal Not Available [facility] [address] [place], [address], 02/01/2024 13:55:08 01/31/20 24 02/01/2024 CBC (INCL UDES DIFF/ PLT) RDW 12.3 % 11.0-1 5.0 normal Not Available [facility] [address] [facility] [place], [address], 02/01/2024 13:55:08 01/31/20 24 02/01/2024 CBC (INCL UDES DIFF/ PLT) platelet count 176 thous and/u L 140-40 0 normal Not Available [facility] [address] [facility] [place], [address], 02/01/2024 13:55:08 01/31/20 24 02/01/2024 CBC (INCL UDES DIFF/ PLT) MPV 11.2 fL 7.5-12 .5 normal Not Available [facility] [place], [address], 02/01/2024 13:55:08 01/31/20 24 02/01/2024 CBC (INCL UDES DIFF/ PLT) absolute neutrophils 3172 cells /uL 1500-7 800 normal Not Available [facility] [address] [place], [place] [address], [address], 02/01/2024 13:55:08 01/31/20 24 02/01/2024 CBC (INCL UDES DIFF/ PLT) absolute lymphocytes 1964 cells /uL 850-39 00 normal Not Available [facility] [facility] [place], [address], 02/01/2024 13:55:08 01/31/20 24 02/01/2024 CBC (INCL UDES DIFF/ PLT) absolute monocytes 769 cells /uL 200-95 0 normal Not Available [facility] [address] [facility] [place], [address], 02/01/2024 13:55:08 01/31/20 24 02/01/2024 CBC (INCL UDES DIFF/ PLT) absolute eosinophils 153 cells /uL 15-500 normal Not Available [facility] [address] [facility] [place], [address], 02/01/2024 13:55:08 01/31/20 24 02/01/2024 CBC (INCL UDES DIFF/ PLT) absolute basophils 43 cells /uL 0-200 normal Not Available [facility] [address] [facility] [place], [address], 02/01/2024 13:55:08 01/31/20 24 02/01/2024 CBC (INCL UDES DIFF/ PLT) neutrophils 52 % normal Not Available [facility] [address] [facility] [place], [address], 02/01/2024 13:55:08 01/31/20 24 02/01/2024 CBC (INCL UDES DIFF/ PLT) lymphocytes 32.2 % normal Not Available [facility] [address] [facility] [place], [address], 02/01/2024 13:55:08 01/31/20 24 02/01/2024 CBC (INCL UDES DIFF/ PLT) monocytes 12.6 % normal Not Available [facility] [address] [facility], [place], [address], 02/01/2024 13:55:08 01/31/20 24 02/01/2024 CBC (INCL UDES DIFF/ PLT) eosinophils 2.5 % normal Not Available [facility] [address] [facility] [place], [address], 02/01/2024 13:55:08 01/31/20 24 02/01/2024 CBC (INCL UDES DIFF/ PLT) basophils 0.7 % normal Not Available [facility] [address] [facility] [place], [address], 02/01/2024 13:55:08 01/31/20 24 02/01/2024 C-ALESSIO CTIVE PROTE IN C-reactive protein 12.6 mg/L <8.0 high Not Available [facility] [address] [place], [address], 02/01/2024 13:55:09 02/03/20 24 02/07/2024 ALBUM IN, RANDO M URINE W/CRE ATINI NE creatinine, random urine 105 mg/dL 20-275 normal Not Available [facility] [address] [place], [address], 02/07/2024 10:40:12 02/03/20 24 02/07/2024 ALBUM IN, RANDO M URINE W/CRE ATINI NE albumin, urine 1.0 mg/dL see note: normal Refer ence Range : Refer ence Range Not estab lishe d Not Available [facility] [address] [place], [address], 02/07/2024 10:40:12 02/03/20 24 02/07/2024 ALBUM IN, RANDO M URINE W/CRE ATINI NE albumin/crea tinine ratio, random urine 10 mg/g_ creat <30 normal The ADA defin es abnor malit ies in album in excre tion as follo ws: Album inuri a Categ ory Resul t (mg/g creat inine ) Marianela l to Mildl y incre ased <30 Moder ately incre ased 30-29 9 Sever lakhwinder incre ased > OR = 300 The ADA recom mends that at least two of three speci mens colle cted withi n a 3-6 month perio d be abnor mal befor e consi tyson g a patie nt to be withi n a diagn ostic categ ory. Not Available [facility] [address] [place], [address], 02/07/2024 10:40:12 02/03/20 24 02/07/2024 PTH, INTAC T WITHO UT CALCI UM parathyroid hormone, intact 66 pg/mL 16-77 normal Inter preti ve Guide Intac t PTH Calci um ----- ----- ----- --- ----- ----- ----- -- Marianela l Parat hyroi d Marianela l Marianela l Hypop eun yroid ism Low or Low Marianela l Low Hyper parat hyroi dism Prima ry Marianela l or High High Secon carl High Marianela l or Low Terti chaparro High High Non-P eun yroid Hyper calce carolyn Low or Low Marianela l High Not Available [facility] [address] [facility], [place], [address], 02/07/2024 10:40:13 02/03/20 24 02/07/2024 VITAM IN D,25- OH,TO PHILIPP,I A vitamin D,25-oh,tota l,ia 52 NG/mL 30-100 normal Vitam in D Statu s 25-OH Vitam in D: Defic iency : <20 ng/mL Insuf ficie ncy: 20 - 29 ng/mL Optim al: > or = 30 ng/mL For 25-OH Vitam in D testi ng on patie nts on D2-diaz pplem entat ion and patie nts for whom quant itati on of D2 and D3 fract ions is requi red, the [facility] e[facility](TM ) 25-OH VIT D, (D2,D 3), LC/MS /MS is recom raiza d: order code 30881 (prabhu ents >2yrs ). See Note 1 Note 1 For addit ional infor jose bill refer to http: //ashley Mayorga stDia gnost ics.c om/fa q/FAQ 199 (This link is being provi ded for infor yassine alan/ josefina gonzalez purpo ses only. ) Not Available [facility] [address], [place], [address], 02/07/2024 10:40:14 02/03/20 24 02/07/2024 PHOSP HATE ( PHOSP HORUS ) phosphate ( phosphorus) 3.1 mg/dL 2.1-4. 3 normal Not Available [facility] [address] [facility], [place], [address], 02/07/2024 10:40:14 02/03/20 24 02/07/2024 CYSTA TIN C WITH EGFR cystatin C 2.22 mg/L 0.52-1 .10 high Not Available [facility] [address] [facility], [place], [address], 02/07/2024 10:40:15 02/03/20 24 02/07/2024 CYSTA TIN C WITH EGFR eGFR 24 mL/mi n/1.7 3m2 > or = 60 low Not Available [facility] [address] [facility], [place], [address], 02/07/2024 10:40:15 07/18/20 24 07/19/2024 LIPID PANEL , STAND TATUM cholesterol, total 160 mg/dL <200 normal Not Available [facility] [address] [facility], [place], [address], 07/19/2024 10:00:07 07/18/20 24 07/19/2024 LIPID PANEL , STAND TATUM HDL cholesterol 73 mg/dL > or = 50 normal Not Available [facility] [address] [place], [address], 07/19/2024 10:00:07 07/18/2007/19/2024 LIPID PANEL , STAND TATUM triglyceride s 155 mg/dL <150 high Not Available [facility] [address] [place], [address], 07/19/2024 10:00:07 07/18/2007/19/2024 LIPID PANEL , STAND TATUM LDL-choleste rol 64 mg/dL _(darrion c) normal Refer ence range : <100 Michi able range <100 mg/dL for prima ry preve ntion ; <70 mg/dL for patie nts with CHD or diabe tic patie nts with > or = 2 CHD risk facto rs. LDL-C is now calcu lated using the Adina n-Hop kins calcu johnny n, which is a valid ated novel metho d provi ding chuy r accur acy than the Fried manuelito equat ion in the estim ation of LDL-C . Adina shields SS et al. KENDELL. 2013; 310(1 9): 2061- 2068 (http ://ed ucati on.Qu estDi [employer]. com/f aq/FA Q164) Not Available [facility] [address], [place], [address], 07/19/2024 10:00:07 07/18/2007/19/2024 LIPID PANEL , STAND TATUM chol/HDLC ratio 2.2 (calc ) <5.0 normal Not Available [facility] [address], [place], [address], 07/19/2024 10:00:07 07/18/2007/19/2024 LIPID PANEL , STAND TATUM non HDL cholesterol 87 mg/dL _(darrion c) <130 normal For patie nts with diabe miguel angel plus 1 major ASCVD risk facto r, treat ing to a non-H DL-C goal of <100 mg/dL (LDL- C of <70 mg/dL ) is consi dered a thera peuti c optio n. Not Available [facility] [address], [place], [address], 07/19/2024 10:00:07 07/18/2007/19/2024 COMPR EHENS ADRIAN METAB OLIC PANEL glucose 94 mg/dL 65-99 normal Fasti ng refer ence inter re Not Available [facility] [address], [place], [address], 07/19/2024 10:00:08 07/18/2007/19/2024 COMPR EHENS ADRIAN METAB OLIC PANEL urea nitrogen (BUN) 16 mg/dL 7-25 normal Not Available [facility] [address] [place], [address], 07/19/2024 10:00:08 07/18/20 24 07/19/2024 COMPR EHENS ADRIAN METAB OLIC PANEL creatinine 1.03 mg/dL 0.60-1 .00 high Not Available [facility] [address] [place], [address], 07/19/2024 10:00:08 07/18/2007/19/2024 COMPR EHENS ADRIAN METAB OLIC PANEL eGFR 57 mL/mi n/1.7 3m2 > or = 60 low Not Available [facility] [address] [place], [address], 07/19/2024 10:00:08 07/18/20 24 07/19/2024 COMPR EHENS ADRIAN METAB OLIC PANEL BUN/creatini ne ratio 16 (calc ) 6-22 normal Not Available [facility] [address] [place], [address], 07/19/2024 10:00:08 07/18/20 24 07/19/2024 COMPR EHENS ADRIAN METAB OLIC PANEL sodium 143 mmol/ L 135-14 6 normal Not Available [facility] [address] [place], [address], 07/19/2024 10:00:08 07/18/20 24 07/19/2024 COMPR EHENS ADRIAN METAB OLIC PANEL potassium 3.2 mmol/ L 3.5-5. 3 low Not Available [facility] [address] [place], [address], 07/19/2024 10:00:08 07/18/20 24 07/19/2024 COMPR EHENS ADRIAN METAB OLIC PANEL chloride 100 mmol/ L 98-110 normal Not Available [facility] [address] [facility] [place], [address], 07/19/2024 10:00:08 07/18/20 24 07/19/2024 COMPR EHENS ADRIAN METAB OLIC PANEL carbon dioxide 33 mmol/ L 20-32 high Not Available [facility] [address] [facility] [place], [address], 07/19/2024 10:00:08 07/18/20 24 07/19/2024 COMPR EHENS ADRIAN METAB OLIC PANEL calcium 9.6 mg/dL 8.6-10 .4 normal Not Available [facility] [address] [facility] [place], [address], 07/19/2024 10:00:08 07/18/20 24 07/19/2024 COMPR EHENS ADRIAN METAB OLIC PANEL protein, total 6.6 g/dL 6.1-8. 1 normal Not Available [facility] [address] [facility] [place], [address], 07/19/2024 10:00:08 07/18/20 24 07/19/2024 COMPR EHENS ADRIAN METAB OLIC PANEL albumin 3.7 g/dL 3.6-5. 1 normal Not Available [facility] [address] [facility] [place], [address], 07/19/2024 10:00:08 07/18/20 24 07/19/2024 COMPR EHENS ADRIAN METAB OLIC PANEL globulin 2.9 g/dL_ (calc ) 1.9-3. 7 normal Not Available [facility] [address] [facility] [place], [address], 07/19/2024 10:00:08 07/18/20 24 07/19/2024 COMPR EHENS ADRIAN METAB OLIC PANEL albumin/glob ulin ratio 1.3 (calc ) 1.0-2. 5 normal Not Available [facility] [address] [place], [address], 07/19/2024 10:00:08 07/18/20 24 07/19/2024 COMPR EHENS ADRIAN METAB OLIC PANEL bilirubin, total 0.7 mg/dL 0.2-1. 2 normal Not Available [facility] [address] [place], [address], 07/19/2024 10:00:08 07/18/20 24 07/19/2024 COMPR EHENS ADRIAN METAB OLIC PANEL alkaline phosphatase 70 U/L 37-153 normal Not Available [facility] [address] [place], [address], 07/19/2024 10:00:08 07/18/20 24 07/19/2024 COMPR EHENS ADRIAN METAB OLIC PANEL AST 16 U/L 10-35 normal Not Available [employer] [address] [place], [address], 07/19/2024 10:00:08 07/18/20 24 07/19/2024 COMPR EHENS ADRIAN METAB OLIC PANEL ALT 10 U/L 6-29 normal Not Available [facility] [address] [place], [address], 07/19/2024 10:00:08 07/18/20 24 07/19/2024 TSH TSH 1.76 mIU/L 0.40-4 .50 normal Not Available [facility] [address] [place], [address], 07/19/2024 10:00:08 07/18/20 24 07/19/2024 SED RATE BY MODIF IED WESTMaine RGREN sed rate by modified westergren 53 mm/h < or = 30 high Not Available [facility] [address] [place], [address], 07/19/2024 10:00:09 07/18/2007/19/2024 CBC (INCL UDES DIFF/ PLT) white blood cell count 5.9 thous and/u L 3.8-10 .8 normal Not Available [facility] [address] [facility] [place], [address], 07/19/2024 10:00:09 07/18/2007/19/2024 CBC (INCL UDES DIFF/ PLT) red blood cell count 3.79 graham on/uL 3.80-5 .10 low Not Available [facility] [address] [facility] [place], [address], 07/19/2024 10:00:09 07/18/2007/19/2024 CBC (INCL UDES DIFF/ PLT) hemoglobin 12.4 g/dL 11.7-1 5.5 normal Not Available [facility] [address] [facility], [place], [address], 07/19/2024 10:00:09 07/18/2007/19/2024 CBC (INCL UDES DIFF/ PLT) hematocrit 38.4 % 35.0-4 5.0 normal Not Available [facility] [address] [facility] [place], [address], 07/19/2024 10:00:09 07/18/2007/19/2024 CBC (INCL UDES DIFF/ PLT) MCV 101.3 fL 80.0-1 00.0 high Not Available [facility] [address] [facility] [place], [address], 07/19/2024 10:00:09 07/18/2007/19/2024 CBC (INCL UDES DIFF/ PLT) MCH 32.7 pg 27.0-3 3.0 normal Not Available [facility] [address] [facility] [place], [address], 07/19/2024 10:00:09 07/18/2007/19/2024 CBC (INCL UDES DIFF/ PLT) MCHC 32.3 g/dL 32.0-3 6.0 normal For adult s, a sligh t decre ase in the calcu lated MCHC value (in the range of 30 to 32 g/dL) is most likel y not clini eusebio signi ficrigoberto t; hillary er, it shoul d be inter prete d with cauti on in [facility] n with other red cell candi eters and the patie nt's clini darrion condi tion. Not Available [facility] [place] [facility] [address], [place], [address], 07/19/2024 10:00:09 07/18/20 24 07/19/2024 CBC (INCL UDES DIFF/ PLT) RDW 12.4 % 11.0-1 5.0 normal Not Available [facility] [place] [facility] [address], [place], [address], 07/19/2024 10:00:09 07/18/2007/19/2024 CBC (INCL UDES DIFF/ PLT) platelet count 215 thous and/u L 140-40 0 normal Not Available [facility] [place] [facility] [address], [place], [address], 07/19/2024 10:00:09 07/18/2007/19/2024 CBC (INCL UDES DIFF/ PLT) MPV 11.0 fL 7.5-12 .5 normal Not Available [facility] [place] [facility] [address], [place], [address], 07/19/2024 10:00:09 07/18/20 24 07/19/2024 CBC (INCL UDES DIFF/ PLT) absolute neutrophils 3086 cells /uL 1500-7 800 normal Not Available [facility] [place] [facility] [address], [place], [address], 07/19/2024 10:00:09 07/18/2007/19/2024 CBC (INCL UDES DIFF/ PLT) absolute lymphocytes 1876 cells /uL 850-39 00 normal Not Available [facility] [place] [facility] [address] [facility], [place], [address], 07/19/2024 10:00:09 07/18/2007/19/2024 CBC (INCL UDES DIFF/ PLT) absolute monocytes 708 cells /uL 200-95 0 normal Not Available [facility] [place] [facility] [address] [facility] [place], [address], 07/19/2024 10:00:09 07/18/2007/19/2024 CBC (INCL UDES DIFF/ PLT) absolute eosinophils 189 cells /uL 15-500 normal Not Available [facility] [place] [address] [facility], [place], [address], 07/19/2024 10:00:09 07/18/20 24 07/19/2024 CBC (INCL UDES DIFF/ PLT) absolute basophils 41 cells /uL 0-200 normal Not Available [facility] [place] [facility] [address] [facility], [place], [address], 07/19/2024 10:00:09 07/18/20 24 07/19/2024 CBC (INCL UDES DIFF/ PLT) neutrophils 52.3 % normal Not Available [facility] [address] [facility], [place], [address], 07/19/2024 10:00:09 07/18/20 24 07/19/2024 CBC (INCL UDES DIFF/ PLT) lymphocytes 31.8 % normal Not Available [facility] [place] [facility] [address] [facility], [place], [address], 07/19/2024 10:00:09 07/18/20 24 07/19/2024 CBC (INCL UDES DIFF/ PLT) monocytes 12.0 % normal Not Available [facility] [address] [facility] [place], [address], 07/19/2024 10:00:09 07/18/20 24 07/19/2024 CBC (INCL UDES DIFF/ PLT) eosinophils 3.2 % normal Not Available [facility] [address] [facility] [place], [address], 07/19/2024 10:00:09 07/18/20 24 07/19/2024 CBC (INCL UDES DIFF/ PLT) basophils 0.7 % normal Not Available [facility] [address] [facility] [place], [address], 07/19/2024 10:00:09 11/10/19 25 11/11/2024 BASIC METAB OLIC PANEL glucose 93 mg/dL 65-99 normal Fasti ng refer ence inter re Not Available [facility] [address] [facility] [place], [address], 11/11/2024 08:19:28 11/10/19 25 11/11/2024 BASIC METAB OLIC PANEL urea nitrogen (BUN) 13 mg/dL 7-25 normal Not Available [facility] [address] [facility] [place], [address], 11/11/2024 08:19:28 11/10/19 25 11/11/2024 BASIC METAB OLIC PANEL creatinine 0.91 mg/dL 0.60-1 .00 normal Not Available [facility] [address] [place], [address], 11/11/2024 08:19:28 11/10/19 25 11/11/2024 BASIC METAB OLIC PANEL eGFR 67 mL/mi n/1.7 3m2 > or = 60 normal Not Available [facility] [address] [place], [address], 11/11/2024 08:19:28 11/10/19 25 11/11/2024 BASIC METAB OLIC PANEL BUN/creatini ne ratio SEE NOTE: (calc ) 6-22 Not Repor archana: BUN and Creat inine are withi n refer ence range . Not Available [facility] [place] [facility] [address] [place], [address], 11/11/2024 08:19:28 11/10/19 25 11/11/2024 BASIC METAB OLIC PANEL sodium 142 mmol/ L 135-14 6 normal Not Available [facility] [place] [facility] [address] [place], [address], 11/11/2024 08:19:28 11/10/19 25 11/11/2024 BASIC METAB OLIC PANEL potassium 3.2 mmol/ L 3.5-5. 3 low Not Available [facility] [place] [facility] [address] [place], [address], 11/11/2024 08:19:28 11/10/19 25 11/11/2024 BASIC METAB OLIC PANEL chloride 97 mmol/ L 98-110 low Not Available [facility] [place] [facility] [address] [place], [address], 11/11/2024 08:19:28 11/10/19 25 11/11/2024 BASIC METAB OLIC PANEL carbon dioxide 34 mmol/ L 20-32 high Not Available [facility] [place] [facility] [address] [place], [address], 11/11/2024 08:19:28 11/10/19 25 11/11/2024 BASIC METAB OLIC PANEL calcium 9.8 mg/dL 8.6-10 .4 normal Not Available [facility] [place] [facility] [address] [place], [address], 11/11/2024 08:19:28 01/26/20 25 01/26/2025 LIPID PANEL , STAND TATUM cholesterol, total 164 mg/dL <200 normal Not Available [facility] [place] [facility] [address] [facility] [place], [address], 01/26/2025 10:21:59 01/26/20 25 01/26/2025 LIPID PANEL , STAND TATUM HDL cholesterol 72 mg/dL > or = 50 normal Not Available [facility] [place] [facility] [address] [facility] [place], [address], 01/26/2025 10:21:59 01/26/20 25 01/26/2025 LIPID PANEL , STAND TATUM triglyceride s 122 mg/dL <150 normal Not Available [facility] [place] [facility] [address] [facility], [place], [address], 01/26/2025 10:21:59 01/26/20 25 01/26/2025 LIPID PANEL , STAND TATUM LDL-choleste rol 72 mg/dL _(darrion c) normal Refer ence range : <100 Michi able range <100 mg/dL for prima ry preve ntion ; <70 mg/dL for patie nts with CHD or diabe tic patie nts with > or = 2 CHD risk facto rs. LDL-C is now calcu lated using the Adina n-Hop kins calcu latmariposa n, which is a valid ated novel metho d provi ding chuy r accur acy than the Fried manuelito equat ion in the estim ation of LDL-C . Adina shields SS et al. KENDELL. 2013; 310(1 9): 2061- 2068 (http ://ed ucati on.Qu nargisDi Skinny Moms. com/f aq/FA Q164) Not Available [facility] [place] [facility] [address] [facility], [place], [address], 01/26/2025 10:21:59 01/26/20 25 01/26/2025 LIPID PANEL , STAND TATUM chol/HDLC ratio 2.3 (calc ) <5.0 normal Not Available [facility] [place] [facility] [address] [place], [address], 01/26/2025 10:21:59 01/26/20 25 01/26/2025 LIPID PANEL , STAND TATUM non HDL cholesterol 92 mg/dL _(darrion c) <130 normal For patie nts with diabe miguel angel plus 1 major ASCVD risk facto r, treat ing to a non-H DL-C goal of <100 mg/dL (LDL- C of <70 mg/dL ) is consi dered a thera peuti c optio n. Not Available [facility] [place] [facility] [address], [place], [address], 01/26/2025 10:21:59 01/26/20 25 01/26/2025 COMPR EHENS ADRIAN METAB OLIC PANEL glucose 92 mg/dL 65-99 normal Fasti ng refer ence inter re Not Available [facility] [place] [facility] [address], [place], [address], 01/26/2025 10:22:00 01/26/20 25 01/26/2025 COMPR EHENS ADRIAN METAB OLIC PANEL urea nitrogen (BUN) 20 mg/dL 7-25 normal Not Available [facility] [place] [facility] [address], [place], [address], 01/26/2025 10:22:00 01/26/20 25 01/26/2025 COMPR EHENS ADRIAN METAB OLIC PANEL creatinine 1.02 mg/dL 0.60-1 .00 high Not Available [facility] [place] [facility] [address], [place], [address], 01/26/2025 10:22:00 01/26/20 25 01/26/2025 COMPR EHENS ADRIAN METAB OLIC PANEL eGFR 58 mL/mi n/1.7 3m2 > or = 60 low Not Available [facility] [place] [facility] [address], [place], [address], 01/26/2025 10:22:00 01/26/20 25 01/26/2025 COMPR EHENS ADRIAN METAB OLIC PANEL BUN/creatini ne ratio 20 (calc ) 6-22 normal Not Available [facility] [address] [facility] [place], [address], 01/26/2025 10:22:00 01/26/20 25 01/26/2025 COMPR EHENS ADRIAN METAB OLIC PANEL sodium 140 mmol/ L 135-14 6 normal Not Available [facility] [address] [facility], [address], 01/26/2025 10:22:00 01/26/20 25 01/26/2025 COMPR EHENS ADRIAN METAB OLIC PANEL potassium 3.3 mmol/ L 3.5-5. 3 low Not Available [facility] [address] [place], [address], 01/26/2025 10:22:00 01/26/20 25 01/26/2025 COMPR EHENS ADRIAN METAB OLIC PANEL chloride 100 mmol/ L 98-110 normal Not Available [facility] [address] [facility] [place], [address], 01/26/2025 10:22:00 01/26/20 25 01/26/2025 COMPR EHENS ADRIAN METAB OLIC PANEL carbon dioxide 30 mmol/ L 20-32 normal Not Available [facility] [address] [place], [address], 01/26/2025 10:22:00 01/26/20 25 01/26/2025 COMPR EHENS ADRIAN METAB OLIC PANEL calcium 9.5 mg/dL 8.6-10 .4 normal Not Available [facility] [address] [facility] [place], [address], 01/26/2025 10:22:00 01/26/20 25 01/26/2025 COMPR EHENS ADRIAN METAB OLIC PANEL protein, total 6.9 g/dL 6.1-8. 1 normal Not Available [facility] [address] [place], [address], 01/26/2025 10:22:00 01/26/20 25 01/26/2025 COMPR EHENS ADRIAN METAB OLIC PANEL albumin 3.9 g/dL 3.6-5. 1 normal Not Available [facility] [address] [place], [address], 01/26/2025 10:22:00 01/26/20 25 01/26/2025 COMPR EHENS ADRIAN METAB OLIC PANEL globulin 3.0 g/dL_ (calc ) 1.9-3. 7 normal Not Available [facility] [address] [place], [address], 01/26/2025 10:22:00 01/26/20 25 01/26/2025 COMPR EHENS ADRIAN METAB OLIC PANEL albumin/glob ulin ratio 1.3 (calc ) 1.0-2. 5 normal Not Available [facility] [address] [place], [address], 01/26/2025 10:22:00 01/26/20 25 01/26/2025 COMPR EHENS ADRIAN METAB OLIC PANEL bilirubin, total 0.8 mg/dL 0.2-1. 2 normal Not Available [facility] [place], [address], 01/26/2025 10:22:00 01/26/20 25 01/26/2025 COMPR EHENS ADRIAN METAB OLIC PANEL alkaline phosphatase 62 U/L 37-153 normal Not Available [facility] [address] [place], [address], 01/26/2025 10:22:00 01/26/20 25 01/26/2025 COMPR EHENS ADRIAN METAB OLIC PANEL AST 18 U/L 10-35 normal Not Available [facility] [address] [place], [address], 01/26/2025 10:22:00 01/26/20 25 01/26/2025 COMPR EHENS ADRIAN METAB OLIC PANEL ALT 10 U/L 6-29 normal Not Available [facility] [address] [facility] [place], [address], 01/26/2025 10:22:00 01/26/20 25 01/26/2025 TSH TSH 2.20 mIU/L 0.40-4 .50 normal Not Available [facility] [address] [place], [address], 01/26/2025 10:22:01 01/26/20 25 01/26/2025 CBC (INCL UDES DIFF/ PLT) white blood cell count 5.9 thous and/u L 3.8-10 .8 normal Not Available [facility] [address] [place], [place] [address], [address], 01/26/2025 10:22:02 01/26/20 25 01/26/2025 CBC (INCL UDES DIFF/ PLT) red blood cell count 3.96 graham on/uL 3.80-5 .10 normal Not Available [facility] [facility] [place], [address], 01/26/2025 10:22:02 01/26/20 25 01/26/2025 CBC (INCL UDES DIFF/ PLT) hemoglobin 12.9 g/dL 11.7-1 5.5 normal Not Available [facility] [facility] [place], [address], 01/26/2025 10:22:02 01/26/20 25 01/26/2025 CBC (INCL UDES DIFF/ PLT) hematocrit 39.6 % 35.0-4 5.0 normal Not Available [facility] [address] [place], [address], 01/26/2025 10:22:02 01/26/2001/26/2025 CBC (INCL UDES DIFF/ PLT) MCV 100.0 fL 80.0-1 00.0 normal Not Available [facility] [address] [facility] [place], [address], 01/26/2025 10:22:02 01/26/20 25 01/26/2025 CBC (INCL UDES DIFF/ PLT) MCH 32.6 pg 27.0-3 3.0 normal Not Available [facility] [address] [facility] [place], [address], 01/26/2025 10:22:02 01/26/20 25 01/26/2025 CBC (INCL UDES DIFF/ PLT) MCHC 32.6 g/dL 32.0-3 6.0 normal For adult s, a sligh t decre ase in the calcu lated MCHC value (in the range of 30 to 32 g/dL) is most likel y not clini eusebio signi ana luisa t; hillary er, it shoul d be inter prete d with cauti on in [facility] n with other red cell candi eters and the patie nt's clini darrion condi tion. Not Available [facility] [address] [facility] [place], [address], 01/26/2025 10:22:02 01/26/2001/26/2025 CBC (INCL UDES DIFF/ PLT) RDW 13.5 % 11.0-1 5.0 normal Not Available [facility] [address] [facility] [place], [address], 01/26/2025 10:22:02 01/26/20 25 01/26/2025 CBC (INCL UDES DIFF/ PLT) platelet count 208 thous and/u L 140-40 0 normal Not Available [facility] [address], [place], [address], 01/26/2025 10:22:02 01/26/20 25 01/26/2025 CBC (INCL UDES DIFF/ PLT) MPV 11.0 fL 7.5-12 .5 normal Not Available [facility] [place] [facility] [address], [place], [address], 01/26/2025 10:22:02 01/26/20 25 01/26/2025 CBC (INCL UDES DIFF/ PLT) absolute neutrophils 2803 cells /uL 1500-7 800 normal Not Available [facility] [place] [facility] [address], [place], [address], 01/26/2025 10:22:02 01/26/20 25 01/26/2025 CBC (INCL UDES DIFF/ PLT) absolute lymphocytes 2018 cells /uL 850-39 00 normal Not Available [facility] [place] [facility] [address], [place], [address], 01/26/2025 10:22:02 01/26/20 25 01/26/2025 CBC (INCL UDES DIFF/ PLT) absolute monocytes 820 cells /uL 200-95 0 normal Not Available [facility] [place] [facility] [address], [place], [address], 01/26/2025 10:22:02 01/26/20 25 01/26/2025 CBC (INCL UDES DIFF/ PLT) absolute eosinophils 212 cells /uL 15-500 normal Not Available [facility] [place] [facility] [address], [place], [address], 01/26/2025 10:22:02 01/26/20 25 01/26/2025 CBC (INCL UDES DIFF/ PLT) absolute basophils 47 cells /uL 0-200 normal Not Available [facility] [place] [facility] [address], [place], [address], 01/26/2025 10:22:02 01/26/20 25 01/26/2025 CBC (INCL UDES DIFF/ PLT) neutrophils 47.5 % normal Not Available [facility] [place] [facility] [address], [place], [address], 01/26/2025 10:22:02 01/26/20 25 01/26/2025 CBC (INCL UDES DIFF/ PLT) lymphocytes 34.2 % normal Not Available [facility] [place] [facility] [address], [place], [address], 01/26/2025 10:22:02 01/26/20 25 01/26/2025 CBC (INCL UDES DIFF/ PLT) monocytes 13.9 % normal Not Available [facility] [place] [facility] [address], [place], [address], 01/26/2025 10:22:02 01/26/20 25 01/26/2025 CBC (INCL UDES DIFF/ PLT) eosinophils 3.6 % normal Not Available [facility] [place] [facility] [address], [place], [address], 01/26/2025 10:22:02 01/26/20 25 01/26/2025 CBC (INCL UDES DIFF/ PLT) basophils 0.8 % normal Not Available [facility] [place] [facility] [address], [place], [address], 01/26/2025 10:22:02 06/23/20 23 06/22/2023 MRI extre m [facility] wo [facility] [address] [place] [address] Phone: Fax: Name: MARGI PRITCHETT Exam Date: 023 : [birth year] Age 72 years Gender : F Access ion: [id number] Physic robert: MEGHANN KONG ty: [facility] Facili ty HSV: Outpat ient Exam: MRI EXTREM LWR JOINT LT WO FINAL REPORT CLINIC AL HISTOR Y: left hip, prior imagin g states -avasc ular necros is femora l head, pt denies pain FINDIN GS: Multip lanar MR imagin g of the left hip was perfor med withou t contra st. There is no eviden ce of fractu re or disloc ation. There is avascu lar necros is of the superi or left femora l head measur ing 24 mm in transv erse dimens ion and 37 mm in AP dimens ion. No bony mass is identi fied. There is abnorm al signal at base of the anteri or/sup erior labrum worris ome for a tear. Modera te joint effusi on is seen. The tendon s are intact . The muscul ature is intact . No soft tissue mass or cyst is identi fied. IMPRES KOLE: Avascu lar necros is of the superi or left femora l head. Findin gs worris ome for an anteri or/sup erior labral tear. Review ed, Interp reted and Dictat ed by Sourav Moran III, MD Transc ribed by Dawn hidalgo and Electr onical ly Signed by Sourav Moran III, MD on 2022 02:14: 31 PMEAST YEIMY Dictat ed By: Sourav Moran III Transc ribed By: Transc ribed On: 023 2:14 PM Electr onical ly signed by: Sourav Moran III 023 Thank you for referr MARGI Padilla to [facility]. Legall y ray hidalgo by STEPHANIE Robledo III, MD 2022-09 14:14: 31 CC'ed Logic: Orderi ng Provid er: SO Gilmore CC Provid er: SO Gilmore Attend ing Provid er: SO Gilmore Referr ing Provid er: SO Gilmore Admitt ing Provid er: SO [place] [place] [address] (Radiology) [address] , [place], [address], 07/21/2023 21:02:28 10/24/19 25 10/23/2024 XR, chest , 2 view No observ ation record ed. [email or web address] [facility] [address], [place], [address], 11/04/2024 17:46:34 10/24/19 25 10/23/2024 rhyth m strip , EKG* No observ ation record ed. [email or web address] [facility] [address], [place], [address], 11/04/2024 17:46:51 Result Notes None recorded. Problems Name Problem SNOMED Code Status Onset Date Resolution Date Notes Provider Name and Address Organization Details Recorded Time Benign essential hypertens ion 1095894 Active Leticia Gonzalez MD [address], [address] [place] [address], [facility] 6 22:00:47 Acute non-suppu rative serous otitis media 144220532 Active Leticia Gonzalez MD [address], [address] [place] [address], [facility] 6 09:32:19 Skin sensation disturban ce 60088354 Active Leticia Gonzalez MD [address], [address] [place] [address], [facility] 6 09:32:19 Pain of hip region 86452469 Akil Gonzalez MD [address] [place] [address], [facility] 6 09:32:19 Disorder of urinary tract 75709617 Akil Gonzalez MD [address], [address] [place] [address] 7, [facility] 6 09:32:19 Syncope and collapse 641663389 Akil Gonzalez MD [address], [address] [place] [address], [facility] - [facility] 6 09:32:19 Rheumatic aortic regurgita tion 69256509 Active Trace Leticia Gonzalez MD [address] [place] [address], [facility] 2 18:25:14 Acute sinusitis 37073290 Akil Gonzalez MD [address] [place] [address], [facility] 6 09:32:19 Cerebrova scular disease 34633036 Akil Gonzalez MD [address] [place] [address], [facility] 6 09:32:19 Knee pain Active Leticia Gonzalez MD [address] [place] [address], [facility] 6 09:32:19 Rheumatic mitral regurgita tion 89509675 Akil Gonzalez MD [address] [place] [address], [facility] 6 22:00:47 Hanley's palsy 807948264 Akil Gonzalez MD [address] [place] [address], [facility] 6 09:32:19 Hyperlipi demia 23626287 Akil Gonzalez MD [address] [place] [address], [facility] 6 22:00:47 Facial nerve disorder 752850399 Akil Gonzalez MD [address] [place] [address], [place] - [facility] 6 09:32:19 Hypothyro idism 02549409 Active Leticia Gonzalez MD [address] [address], [place] - [facility] 6 22:00:47 Malaise and fatigue 249315695 Active Leticia Gonzalez MD [address] [address], [place] - [facility] 6 09:32:19 Neuropath y 707472121 Active Leticia Gonzalez MD [address] [address], [place] - [facility] 6 09:32:19 Tick bite 27706714 Active Leticia Gonzalez MD [address] [place] [address], [place] - [facility] 6 09:32:19 Erythema chronica migrans 86902354 Active Leticia Gonzalez MD [address] [address], [place] - [facility] 6 09:32:19 Near syncope 455233814 Active Leticia Gonzalez MD [address] [place] [address], [place] - [facility] 6 22:00:47 History of lacunar cerebrova scular accident 287283038981 01 Active Leticia Gonzalez MD [address] [place] [address], [place] - [facility] 9 21:52:58 Rheumatic mitral stenosis with regurgita tion 100138 Active Leticia Gonzalez MD [address] [address], [facility] 2 18:17:17 History of amaurosis fugax [id number] Completed 07/17/2022 Leticia Gonzalez MD 2017 [facility], [place], [address], [facility] 2 18:17:48 Problem Notes None recorded. Procedures Surgical History Date Name Laterality Status Provider Name and Address Organization Details Recorded Time 04/19/20 17 Colonoscopy completed Leticia Gonzalez MD [address] [address], [place], [address], [facility] 11/14/2018 21:41:37 08/04/20 07 Colonoscopy completed [...] n rash Not available Not available 08/06/2011 51092 8003 SNOMED [facility] [...] Not Available Not Available Fluzone High-Dose Quad 2019- (PF) 240 mcg/0.7 mL IM syringe PHARMACIS [...] Details Last Updated DateTime 5 160.02 cm 37 kg/m2 70515.8 1 g 59 /min 95 % 95 % 96.3 [degF] 137 mm[Hg] 74 mm[Hg] [facility] 5 08:58:05 Date Recorded Body height Body mass index (BMI) Body weight Heart rate Oxygen saturation Oxygen saturation in Arterial blood by Pulse oximetry Body temperature Systolic blood pressure Diastolic blood pressure Provider Name and Address Organization Details Last Updated DateTime 5 160.02 cm 36.8 kg/m2 73325.4 2 g 70 /min 94 % 94 % 97.2 [degF] 139 mm[Hg] 72 mm[Hg] [facility] 5 10:04:34 Date Recorded Body height Body mass index (BMI) Body weight Heart rate Oxygen saturation Oxygen saturation in Arterial blood by Pulse oximetry Body temperature Systolic blood pressure Diastolic blood pressure Provider Name and Address Organization Details Last Updated DateTime 4 160.02 cm 40.6 kg/m2 266979. 75 g 54 /min 96 % 96 % 97.8 [degF] 123 mm[Hg] 66 mm[Hg] [facility] 4 09:42:29 Date Recorded Body height Body weight Heart rate Oxygen saturation Oxygen saturation in Arterial blood by Pulse oximetry Body temperature Systolic blood pressure Diastolic blood pressure Provider Name and Address Organization Details Last Updated DateTime 3 160.02 cm 571180. 21 g 56 /min 95 % 95 % 97 [degF] 120 mm[Hg] 64 mm[Hg] [facility] 3 10:11:58 Date Recorded Body height Body mass index (BMI) Body weight Heart rate Oxygen saturation Oxygen saturation in Arterial blood by Pulse oximetry Body temperature Systolic blood pressure Diastolic blood pressure Provider Name and Address Organization Details Last Updated DateTime 4 160.02 cm 38.9 kg/m2 31662.8 3 g 71 /min 96 % 96 % 97.3 [degF] 138 mm[Hg] 79 mm[Hg] [facility] 4 11:10:35 Social History Question Answer Notes LastModified by Organizat ion Details LastModified Time Tobacco Smoking Status Never Smoker Not Available [facility] 07/16/2020 03:11:19 Do You Have An Advance Directive? No [id number] Information not available 07/16/2020 Animal Exposure? Yes Informat ion not available 03/26/2014 Auto Related Injury? No Information not available 08/06/2011 Is Blood Transfusion Acceptable In An Emergency? Yes [id number] Information not available 07/16/2020 What Is Your Level Of Caffeine Consumption? Occasional [id number] Information not available 07/16/2020 How Much Tobacco Do You Chew? None [id number] Information not available 07/16/2020 Diabetes No Information no t available 08/06/2011 What Type Of Diet Are You Following? REGULAR [id number] Information not available 07/16/2020 Which Illicit Or Recreational Drugs Have You Used? None [id number] Information not available 07/16/2020 Education 12 Information no t available 08/06/2011 What Is The Highest Grade Or Level Of School You Have Completed Or The Highest Degree You Have Received? BM99491-2 Information not available 05/27/2021 Family History Of Heart Disease? No Information not available 08/06/2011 Which Of Your Hands Is Dominant? Right [id number] Information not available 07/16/2020 High Blood Pressure Yes Information not available 08/06/2011 High Cholesterol Yes Informat ion not available 08/06/2011 Live Alone Or With Others? With Others Information not available 08/06/2011 Marital Status Informatio n not available 08/06/2011 What Was The Date Of Your Most Recent Tobacco Screening? 07/31/2024 Information not available 07/31/2024 How Many Children Do You Have? 4 [id number] Information not available 07/16/2020 What Is Your Relationship Status? Information not available 05/27/2021 Do You Use Your Seat Belt Or Car Seat Routinely? Yes [id number] Information not available 07/16/2020 Seat Belts Used Routinely Yes Information not available 03/26/2014 Smoke Alarm In Home Yes Information not available 03/26/2014 How Much Tobacco Do You Smoke? No [id number] Information not available 07/16/2020 General Stress Level Low Information not available 08/06/2011 Do You Use Sunscreen Routinely? No [id number] Information not available 07/16/2020 Work Related Injury? No Information not available 08/06/2011 Sex: Unknown Functional Status Question Answer Note LastModified by Organizat ion Details LastModified Time What is your level of alcohol consumption? None [id number] Information not available 07/16/2020 Are you currently employed? No Information not available 05/11/2023 Are you able to care for yourself? 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 None [id number] Information not available 07/16/2020 Mental Status None [...] Stones N Blood Diseases N Hyperthyroidism N Depression N Hypothyroidism Y COPD N Developmental or Behavioral Disorders N Eczema, [...] N Seizures/Epilepsy N Tuberculosis N Diverticulitis N Allergies N Asthma N GERD/Reflux N Heart Disease N Pulmonary [...] pneumococcal polysaccharide PPV23 7 completed Not Available [facility] 10/07/2019 02:12:07 Influenza, high-dose, trivalent, PF 7 completed Not Available [facility] 10/07/2019 02:12:13 Influenza, recombinant, quadrivalent, PF 8 completed Not Available [facility] 10/07/2019 02:12:13 Influenza, high-dose, quadrivalent, PF 1 completed Not Available [facility] 05/27/2021 13:47:46 Influenza, high-dose, quadrivalent, PF 3 completed [facility] 01/18/2023 08:12:23 Influenza, high-dose, quadrivalent, PF 3 completed Leticia Gonzalez MD [address], [address], [facility] 07/21/2023 21:02:23 Pneumococcal conjugate PCV 13 6 completed Not Available [facility], later [facility] 10/21/2019 02:12:32 Influenza, high-dose, trivalent, PF 4 completed Leticia Gonzalez MD [address], [address], [facility] 08/01/2024 00:10:56 COVID-19, mRNA, LNP-S, PF, christian-sucrose, 30 mcg/0.3 mL 4 completed Leticia Gonzalez MD [address] [place], [address], [facility] 08/01/2024 00:10:56 Influenza, high-dose, trivalent, PF 6 completed [facility] 07/24/2016 11:40:28 Pneumococcal conjugate PCV20, polysaccharide [id number] conjugate, adjuvant, PF 5 completed [facility] 02/01/2025 13:48:24 Tdap 9 completed Leticia Gonzalez MD [address] [address], [place], [place], [address] [place] [address], [facility] 04/17/2019 20:27:08 Influenza, high-dose, trivalent, PF 9 completed [facility] 07/14/2019 11:30:58 Influenza, high-dose, trivalent, PF 0 completed [facility] 06/24/2020 20:06:36 SARS-COV-2 (COVID-19) vaccine, UNSPECIFIED 1 completed Leticia Gonzalez MD [address] [address], [place], [address], [facility] 12/08/2020 09:48:26 COVID-19 vaccine, vector-nr, rS-Ad26, PF, 0.5 mL 1 completed Leticia Gonzalez MD [address] [address], [place], [address], [facility] 12/05/2021 13:49:50 COVID-19, mRNA, LNP-S, PF, 100 mcg/0.5mL dose or 50 mcg/0.25mL dose 1 completed Leticia Gonzalez MD [address] [address], [place], [address], [facility] 12/05/2021 13:50:22 COVID-19, mRNA, LNP-S, PF, 100 mcg/0.5mL dose or 50 mcg/0.25mL dose 2 completed [facility] 04/17/2022 15:42:36 Influenza, split virus, trivalent, preservative 2 completed Leticia Gonzalez MD [address] [address], [place], [address], [facility] 09/05/2012 17:31:25 Td (adult) 8 completed [facility] 09/07/2013 15:18:37 Influenza, split virus, trivalent, preservative 3 completed Leticia Gonzalez MD [address], [address], [facility] 09/18/2013 16:38:12 Past Encounters Encounter ID Performer Location Encounter Start Date Encounter Closed Date Diagnosis/Indication Diagnosis SNOMED-CT Code Diagnosis ICD10 Code Diagnosis Note [id number] Leticia Gonzalez MD [facility] [address] [id number] 08/06/2011 15:15:55 08/07/2011 08:15:45 [id number] Leticia Gonzalez MD [facility] [address] [id number] 03/11/2012 15:39:45 03/11/2012 17:28:50 [id number] Leticia Gonzalez MD [facility] [address] [id number] 7 04/12/2012 13:16:21 04/12/2012 14:21:51 [id number] Leticia Gonzalez MD [facility] [address] [id number] 09/05/2012 15:28:50 09/05/2012 21:07:42 [id number] Leticia Gonzalez MD [address] [id number] 04/03/2013 10:16:52 04/03/2013 16:57:25 [id number] Leticia Gonzalez MD [address] [address] 04/14/2013 15:39:54 04/14/2013 17:10:21 [id number] Leticia Gonzalez MD [address] [address] 7 09/18/2013 15:00:34 09/18/2013 17:38:25 Benign essential hypertension 5195818 Cerebrovas cular disease 33211746 Hypothyroidism 39824736 Neuropathy 748155365 Hyperlipidemia 66881289 [id number] Leticia Gonzalez MD [address] [id number] 03/26/2014 15:41:27 03/27/2014 08:17:43 Adult health examination 108553277 [id number] Leticia Gonzalez MD [address] [address] 7 10/25/2014 14:12:57 10/25/2014 15:52:17 Benign essential hypertension 3103619 Hypothyroidism 18668134 Hyperlipidemia 19536695 [id number] Leticia Gonzalez MD [address] [address] 7 03/07/2015 15:49:10 03/08/2015 17:02:37 Tick bite 76437274 Erythema c hronica migrans 06605997 [id number] Leticia Gonzalez MD [address] [id number] 7 12/03/2015 08:26:36 12/05/2015 16:10:32 Adult health examination 188294446 Z00.01 Benign ess ential hypertension 1932223 I10 Hyperlipidemia 83638382 E78.5 Hypothyroidism 11078779 E03.9 Rheumatic aortic regurgitation 82358854 I06.1 Rheumatic mitral regurgitation 18785880 I05.1 Near syncope 930869045 R 55 Screening mammography 24 790289 Z12.31 Screening for osteoporosis 617266944 Z13.820 Screening for cancer 158 97053 Z12.11 [id number] Leticia Gonzalez MD [facility] [place] [id number] 7 07/24/2016 10:49:15 07/29/2016 09:23:22 Dizziness 751079926 R42 Fatigue 73968451 R53.83 Essential hypertension 80350585 I10 Hyperlipidemia 73365623 E78.5 Atypical chest pain 1025 72645 R07.89 [id number] Leticia Gonzalez MD [facility] [address] [address] 02/26/2017 08:58:44 03/01/2017 17:35:26 Hyperlipidemia 75430221 E78.5 Adult heal th examination 045911481 Z00.01 Essential hypertension 51986376 I10 Active or passive immunization 116180552 Z23 Screening for malignant neoplasm of colon 372636056 Z12.11 Depression screening 171 808518 Z13.89 At low risk for fall 439 229741 Z91.81 Body mass index 40+ - severely obese 769589042 Z68.41 [id number] Leticia Gonzalez MD [address] [address] 7 03/19/2017 10:42:41 03/27/2017 20:22:49 Acute lyme disease 689111795 A69.20 [id number] Leticia Gonzalez MD [address] [id number] 7 07/05/2017 09:55:02 07/06/2017 08:39:38 Acute bronchitis 49513842 J20.9 Active or passive immunization 523959338 Z23 [id number] Leticia Gonzalez MD [facility] [address] [address] 7 08/16/2017 15:04:18 08/16/2017 17:41:57 Neoplasm of uncertain behavior of skin 79920223 D48.5 Abnormalit y of nail of toe 128242159 L60.8 [id number] Leticia Gonzalez MD [facility] [address] [address] 03/17/2018 09:15:04 03/18/2018 17:09:26 Adult health examination 048990972 Z00.01 Hypothyroidism 75878014 E03.9 Essential hypertension 10962166 I10 Hyperlipidemia 86933377 E78.5 Depression screening 171 652596 Z13.89 At low risk for fall 439 303586 Z91.81 Body mass index 40+ - severely obese 894886994 Z68.41 History of lacunar cerebrovascular accident 4011019984 9101 Z86.73 [id number] Leticia Gonzalez MD [facility] [place] [id number] 7 06/16/2018 09:50:26 06/19/2018 20:43:28 Hypothyroidism 63961485 E03.9 Essential hypertension 60809389 I10 Active or passive immunization 379958202 Z23 [id number] Leticia Gonzalez MD [place] [address] 7 11/14/2018 10:24:21 11/15/2018 09:35:52 Hypothyroidism 18197637 E03.9 History of lacunar cerebrovascular accident 6367245918 9101 Z86.73 Benign ess ential hypertension 3555023 I10 Body mass index 40+ - severely obese 348571797 Z68.41 Mammogram declined 27204 5004 Z53.20 [id number] Leticia Gonzalez MD [place] [id number] 7 04/17/2019 08:32:41 04/17/2019 13:34:16 Adult health examination 970568617 Z00.01 Hypothyroidism 61473118 E03.9 Essential hypertension 01358970 I10 Hyperlipidemia 84391583 E78.5 Depression screening 171 991040 Z13.89 Body mass index 40+ - severely obese 188503852 Z68.41 History of lacunar cerebrovascular accident 0033631457 9101 Z86.73 Mammogram declined 73572 5004 Z53.20 [id number] Leticia Gonzalez MD [address] [id number] 7 08/22/2019 15:19:56 08/23/2019 09:43:42 Cellulitis of toe of right foot 8378295996 5242828 L03.031 [id number] Leticia Gonzalez MD [facility] [address] [address] 08/29/2019 10:55:10 08/30/2019 09:31:59 Cellulitis of toe of right foot 5925984802 5060850 L03.031 [id number] Leticia Gonzalez MD [facility] [address] [address] 7 10/20/2019 13:31:45 10/20/2019 16:11:08 Essential hypertension 59297899 I10 Urinary tr act infectious disease 32235473 N39.0 Hyperlipidemia 05142016 E78.5 Incontinence of feces 72 620819 R15.9 we have recommende d she add a daily dose of fiber supplement trial as her gastroente rologist suggested at her last colonoscop y in 2017 that was normal other than internal hemorrhoid s. Abdominal pain 29374114 R10.9 Body mass index 30+ - obesity 137501213 Z68.34 [id number] Leticia Gonzalez MD [facility] [address] [place] [id number] 7 05/06/2020 10:01:59 05/07/2020 08:29:48 Essential hypertension 80372565 I10 Adult heal th examination 665304956 Z00.01 Hypothyroidism 65102263 E03.9 Hyperlipidemia 69854365 E78.5 Depression screening 171 240749 Z13.89 Body mass index 40+ - severely obese 174159912 Z68.41 History of lacunar cerebrovascular accident 5049301313 9101 Z86.73 Mammogram declined 01982 5004 Z53.20 [id number] Leticia Gonzalez MD [facility] [address] [address] 7 06/10/2020 13:52:53 06/11/2020 08:07:23 Chest pain on exertion 24814761 R07.89 she has a past history of rheumatic fever Pain of mu ltiple joints 07817025 M25.50 Fatigue 31554842 R53.83 her usual activities have become more difficult due to severe fatigue after doing her usual activities History of transient ischemic attack 286721782 Z86.73 Essential hypertension 89621265 I10 [id number] Leticia Gonzalez MD [facility] [address] [place] [id number] 7 05/27/2021 13:37:02 05/30/2021 08:18:34 Administration of influenza vaccine 84965079 Z23 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 Essential hypertension 94322006 I10 Adult heal th examination 651472900 Z00.01 Hypothyroidism 01599049 E03.9 Hyperlipidemia 73719126 E78.5 Depression screening 171 357179 Z13.89 Body mass index 40+ - severely obese 273945475 Z68.41 History of lacunar cerebrovascular accident 0164644184 9101 Z86.73 Mammogram declined 32615 5004 Z53.20 [id number] Leticia Gonzalez MD [facility] [address] [place] [id number] 7 12/05/2021 13:24:08 12/08/2021 09:42:17 Amaurosis 72946691 H54.7 Essential hypertension 43635346 I10 Postcholec ystectomy syndrome 88672747 K91.5 Hypothyroidism 55796942 E03.9 Hyperlipidemia 17824608 E78.5 Body mass index 40+ - severely obese 727008795 Z68.41 History of lacunar cerebrovascular accident 1404375870 9101 Z86.73 Mammogram declined 90584 5004 Z53.20 [id number] Leticia Gonzalez MD [address] [address] 7 07/13/2022 10:33:02 07/14/2022 08:40:50 Administration of influenza vaccine 07350916 Z23 Adult heal th examination 690834100 Z00.01 Postcholec ystectomy syndrome 39543375 K91.5 Essential hypertension 77543731 I10 Hypothyroidism 22962845 E03.9 Hyperlipidemia 65373105 E78.5 Depression screening 171 100265 Z13.89 Body mass index 40+ - severely obese 484143333 Z68.41 History of lacunar cerebrovascular accident 0884976953 9101 Z86.73 Mammogram declined 93998 5004 Z53.20 Peripheral neuropathic pain 320173665 M79.2 Bilateral cataracts 9572 2003 H26.9 Pre-surger y evaluation 935110072 Z01.818 Cleared for cataract surgery History of amaurosis fugax 2807535589 6809092 Z86.69 [id number] Leticia Gonzalez MD [facility] [address] [place] [address] 7 01/15/2023 10:22:16 01/18/2023 09:02:10 Hyperlipidemia 99252701 E78.5 Postmenopa usal bleeding 91764707 N95.0 Essential hypertension 15222139 I10 Body mass index 40+ - severely obese 618951692 Z68.41 [id number] Leticia Gonzalez MD [facility] [address] [address] 7 05/11/2023 09:55:31 05/11/2023 14:29:39 Abdominal pain 95521423 R10.9 Diverticul ar disease of colon 041111227 K57.30 Chronic diarrhea 4548212 09 K52.9 [id number] Leticia Gonzalez MD [facility] [address] [address] 7 07/20/2023 09:58:33 07/22/2023 10:07:40 Administration of influenza vaccine 21595321 Z23 [facility] examination 700470761 Z00.01 Postcholec ystectomy syndrome 57880518 K91.5 Essential hypertension 16625766 I10 Hypothyroidism 22989650 E03.9 Hyperlipidemia 73035097 E78.5 Depression screening 171 522944 Z13.89 Body mass index 40+ - severely obese 607551404 Z68.41 History of lacunar cerebrovascular accident 4747402849 9101 Z86.73 Mammogram declined 69848 5004 Z53.20 History of amaurosis fugax 3028253489 7372814 Z86.69 Long-term current use of anticoagulant 505385529 Z79.01 [id number] Leticia Gonzalez MD [facility] [address] [place] [id number] 7 02/03/2024 09:31:15 02/04/2024 08:49:09 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 Essential hypertension 14991586 I10 Hypothyroidism 88434080 E03.9 Hyperlipidemia 78995512 E78.5 Depression screening 171 922443 Z13.89 Body mass index 40+ - severely obese 314331500 Z68.41 History of lacunar cerebrovascular accident 8617521690 9101 Z86.73 Mammogram declined 72754 5004 Z53.20 History of amaurosis fugax 7769829917 0941746 Z86.69 Long-term current use of anticoagulant 618477786 Z79.01 Chronic ki dney disease stage 4 536049062 N18.4 [id number] Leticia Gonzalez MD [facility] [address] [address] 07/31/2024 10:39:26 08/01/2024 09:00:10 Adult health examination 303250041 Z00.01 Administra tion of influenza vaccine 64467774 Z23 Postcholec ystectomy syndrome 99787414 K91.5 Essential hypertension 80903325 I10 Hypothyroidism 43857069 E03.9 Hyperlipidemia 75060208 E78.5 Depression screening 171 065047 Z13.89 History of lacunar cerebrovascular accident 4602762077 9101 Z86.73 Mammogram declined 86311 5004 Z53.20 History of amaurosis fugax 2786410979 3901161 Z86.69 Long-term current use of anticoagulant 998381545 Z79.01 Active or passive immunization 531001097 Z23 Body mass index 30+ - obesity 515465825 Z68.38 Medication review done by doctor 688288282 Z76.89 [id number] Leticia Gonzalez MD [facility] [address] [address] 7 11/10/2024 08:47:07 11/13/2024 10:00:16 Hypokalemia 43777453 E87.6 Transition of care from emergency department to self-care 7473127988 19804 Z76.89 History of influenza 789 957608 Z87.09 [id number] Leticia Gonzalez MD [facility] [address] [place] [address] 7 02/01/2025 09:40:26 02/01/2025 16:06:30 Essential hypertension 28858682 I10 Hypothyroidism 22752741 E03.9 Hyperlipidemia 94525373 E78.5 Depression screening 171 253967 Z13.89 History of lacunar cerebrovascular accident 4623214055 9101 Z86.73 Mammogram declined 69606 5004 Z53.20 History of amaurosis fugax 7761546304 4357772 Z86.69 Long-term current use of anticoagulant 749757891 Z79.01 Active or passive immunization 899561920 Z23 Medication review done by doctor 878192048 Z76.89 Body mass index 30+ - obesity 701834033 Z68.36 Health Concerns Section Related Observation LastModified by Organization Detai ls LastModified Time None Recorded Concern Status LastModified by Organization Details LastModified Time None Recorded Advance Directives Directive N: Payers Insurance Date Sequence Insurance Name Policy Number Policy Beyer Covered Member ID Beyer Member ID Guarantor Name 04/03/2013 1 *SELF PAY* Be angus A José Miguel 07/31/2024 1 [employer]) [id number] Margi A José Miguel [id number] Margi A José Miguel 03/07/2015 1 *SELF PAY* Be angus A José Miguel 07/31/2024 1 [facility]LY [facility] (O) [id number] Margi A José Miguel [id number] Margi A José Miguel 07/31/2024 1 [place] Margi A José Miguel [id number] Margi A José Miguel 07/31/2024 1 [place] [id number] Margi A José Miguel [id number] Margi A José Miguel 07/31/2024 1 [employer] Margi A José Miguel [id number] Margi A José Miguel 11/10/2024 1 [place]MEDICARE RE[place]ACEMENT HMO[place] [id number] Margi A José Miguel [id number] Margi A José Miguel 01/29/2025 1 [employer] (MEDICARE REPLACEMENT/A DVANTAGE - PPO) Margi A José Miguel [id number] Margi A José Miguel Notes Date Note Type Note Provider Name and Address Organization Details Recorded Time 07/20/2023 text/html only drinks one water a day, one coffee latte, and sometimes a soda is all she drinks in a day.She has no pain with the hip although has avascular necrosis of the left femoral head. The orthopedist has advised just to watch it as no treatment until it collapses. Leticia Gonzalez MD [address] [address], [place], [address], [facility] 07/21/2023 21:15:36 02/03/2024 text/html her renal functi on has declined significantly as it had been stable with gfr around 40 for some time; states she may not drink enough waterOtherwise she continues to feel OK. Leticia Gonzalez MD [address] [address], [place], [address], [facility] 02/03/2024 23:48:16 07/31/2024 text/html we had referred her to mining analyst and had some tests run and will follow up later this month. Leticia Gonzalez MD [address] [address], [place], [address], [facility] 08/01/2024 00:27:58 11/10/2024 text/html she was in ER fo r the influenza and shortness of breath.. She was short of breath and she completed the Tamiflu She had a low Potassium and is doing better. She also thinks that they also had some CO build up in her house as they live in an old log house with gas heat only. She got really weak and sleepy. They have since changed the heater out and they have a CO detector now too. Leticia Gonzalez MD [address] [address], [place], [address], [facility] 11/11/2024 11:01:37 OBGyn Episode No OBEpisode recorded.
--- OUTSIDE RECORDS SUMMARY | 2025-03-06 01:16 | XMS_ITS | Clinical Summary ---
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 Name Role Phone Unavailable Primary Care Provider Unavailabl e Family History Medical History Relation Name Comments Stroke Other 1 Coronary artery disease Other 2 Hypertension Other 3 Heart attack Other 4 Relation Name Status Comments Other 1 Other 2 Other 3 Other 4 Social History Tobacco Use Types Packs/Day Years Used Date Smoking Tobacco: Never Alcohol Use Standard Drinks/Week Comments No 0 (1 standard drink = 0.6 oz pur e alcohol) Comments Unknown Sex and Gender Information Value Date Recorded Sex Assigned at Not on file Legal Sex Female 6:56 PM EDT Gender Identity Not on file Sexual Orientation Not on file Last Filed Vital Signs Vital Sign Reading Time Taken Comments Blood Pressure - - Pulse - - Temperature - - Respiratory Rate - - Oxygen Saturation - - Inhaled Oxygen Concentration - - Weight - - Height 160 cm (5' 3 ) 09/10/2020 4:30 PM EST Body Mass Index - - Plan of Treatment Not on file
--- NOTE | 2025-03-06 01:29 | CT_ITS ---
PROCEDURE INFORMATION: Exam: CTA Chest With Contrast Exam date and time: 03/06/2025 2:02 AM Age: 74 years old Clinical indication: Shortness of breath; Additional info: SOA hypoxia productive cough HX mitral valve TECHNIQUE: Imaging protocol: Computed tomographic angiography of the chest with contrast. Exam focused on the arteries. 3D rendering (Not supervised by radiologist): MIP and/or 3D reconstructed images were created by the technologist. Radiation optimization: All CT scans at this facility use at least one of these dose optimization techniques: automated exposure control; mA and/or kV adjustment per patient size (includes targeted exams where dose is matched to clinical indication); or iterative reconstruction. Contrast material: ISOVUE; Contrast volume: 70 ml; Contrast route: INTRAVENOUS (IV); COMPARISON: CR XR CHEST 2V 10/23/2024 11:21 PM FINDINGS: Pulmonary arteries: No definite pulmonary embolus. Suboptimal assessment of the segmental pulmonary arteries secondary to motion artifact. Aorta: Unremarkable. No aortic aneurysm. No aortic dissection. Lungs: Bilateral upper and lower lobe calcified granulomas. Mild left lower lobe dependent atelectasis. Pleural spaces: Mild pleural thickening posterior to the bilateral lower lobes. Heart: Unremarkable. No cardiomegaly. No pericardial effusion. Coronary arteries: Mild coronary artery calcifications. Lymph nodes: Calcified mediastinal and bilateral hilar lymph nodes. Gallbladder and biliary ducts: Cholecystectomy. Bones/joints: No acute fracture. Chronic T8 vertebral body compression fracture. Soft tissues: Unremarkable. IMPRESSION: No definite pulmonary embolus. Suboptimal assessment of the segmental pulmonary arteries secondary to motion artifact.
--- NOTE | 2025-03-06 01:33 | [facility].EDCP ---
Discharge Plan Disposition Patient Disposition: Admitted Condition: Fair Prescriptions Prescriptions: No Action Xarelto 2.5 mg tablet 2.5 mg PO DAILY cyanocobalamin (vitamin B-12) 1,000 mcg/mL drops 1,000 mcg PO DAILY hydralazine 50 mg Tablet 50 mg PO BID oseltamivir 75 mg capsule 75 mg PO BID 5 Days Qty: 10 0RF metoprolol succinate 50 MG tablet extended release 24 hr 50 mg PO HS lovastatin 40 MG tablet 40 mg PO HS levothyroxine 50 MCG tablet 50 mcg PO DAILY aspirin 81 MG tablet,delayed release (DR/EC) 81 mg PO DAILY omega-3 fatty acids-fish oil 1 EACH capsule 1 each PO DAILY spironolactone 25 MG tablet 25 mg PO DAILY hydrochlorothiazide 25 MG tablet 25 mg PO DAILY Clinical Impressions Clinical Impression: Pneumonia, Acute hypoxic respiratory failure, Hypokalemia Print Language Print Language: Finnish Discharge ED Provider: Paradise Mims General Chief Complaint: Upper Respiratory Infection Stated Complaint: cough, trouble breathing, nausea Time Seen by Provider: 03/06/25 01:16 History of Present Illness HPI narrative: 74-year-old female presents to the ER with shortness of breath, productive cough. Patient reports she has been sick for the last 5 days after being exposed to her son who had cold-like symptoms. Patient reports sneezing, congestion, cough. She states her shortness of breath is gotten worse. She reports a history of problems with her mitral valve and is being considered for surgery, she has follow-up with Dr. Tabares at [facility] in March. Patient states she does take a diuretic and has not missed any doses of it, her legs are not more swollen than normal. Family bedside reports she also has kidney dysfunction and has an upcoming appointment with the kidney doctor. Patient reports no known fevers. She did have nausea today but no vomiting or diarrhea, no headache or dizziness, no numbness, tingling, or local weakness but she does have generalized weakness. Patient arrived to the ER room by wheelchair and was saturating 81% on room air. She was placed on nasal cannula but has no history of oxygen requirement at home. No history of COPD. Related Data Home Medications ?Medication ?Instructions ?Recorded ?Confirmed aspirin 81 mg tablet,delayed 81 mg PO DAILY [facility] 06/26/20 10/23/24 release levothyroxine 50 mcg tablet 50 mcg PO DAILY thyroid 06/26/20 10/23/24 lovastatin 40 mg tablet 40 mg PO HS Cholesterol 06/26/20 10/23/24 metoprolol succinate 50 mg 50 mg PO HS Hypertension 06/26/20 10/23/24 tablet,extended release 24 hr omega-3 fatty acids-fish oil 340 1 each PO DAILY Diet supplement 06/26/20 10/23/24 mg-1,000 mg capsule hydrochlorothiazide 25 mg tablet 25 mg PO DAILY fluid+ 07/18/20 10/23/24 spironolactone 25 mg tablet 25 mg PO DAILY Fluid 07/18/20 10/23/24 cyanocobalamin (vitamin B-12) 1,000 mcg PO DAILY Supplement 08/09/20 10/23/24 1,000 mcg/mL oral drops rivaroxaban 2.5 mg tablet (Xarelto) 2.5 mg PO DAILY Blood thinner 01/21/23 10/23/24 hydralazine 50 mg tablet 50 mg PO BID 10/23/24 10/23/24 Previous Rx's ?Medication ?Instructions ?Recorded oseltamivir 75 mg capsule 75 mg PO BID 5 days #10 caps 10/24/24 Allergies Allergy/AdvReac Type Severity Reaction Status Date / Time codeine (CODEINE) Allergy Unknown I-RASH Verified 03/04/23 11:02 Sulfa (Sulfonamide Allergy Unknown I-RASH Verified 03/04/23 11:02 Antibiotics) (SULFA (SULFONAMIDE ANTIBIOTICS)) [facility] Disclaimer: The information contained in this section may have been updated after the patient was seen, as this information can be updated by other users. Medical History (Updated 03/06/25 @ 02:32 by Paradise Mims MD) Morbid obesity with body mass index (BMI) of 40.0 or higher Dyspnea CAD (coronary artery disease) Remote history of stroke Hyperlipidemia Hypertension Obesity Surgical History (Updated 03/04/23 @ 11:09 by ROSE Delgado) History of hysteroscopy S/P cholecystectomy H/O tubal ligation Family History Other Coronary artery disease Social History Smoking Status: Never smoker second hand exposure: No alcohol intake: never substance use type: denies use current occupational status: retired Travel in the last 8 weeks?: None household members: spouse housing: house current occupational exposures/hazards: No Have you lived/traveled outside [place] in past 30 days?: No Contact w/someone who lives/traveled outside [place] past 30 days?: No Exposure to someone with infectious disease in past 14 days?: No Do you have a fever (greater than 100.4 F or 38 C)?: No Have you tested positive for COVID-19?: No Exposed to someone with COVID-19 in past 14 days?: No Do you have a sore throat?: No Do you have a cough?: Yes Do you have any weakness?: No Do you have any diarrhea?: No Are you experiencing any unusual bleeding?: No Do you have any muscle aches/pain?: No Do you have any abdominal pain?: No Are you experiencing loss of taste or smell?: No Other Medical History Have you received the Flu Vaccine for this season: Yes Have you received the Pneumonia Vaccine: Yes ROS Obtained: Yes Systems reviewed as appropriate & no additional complaints except as documented Per HPI Physical Exam General General appearance: alert and obese Comment: Ill-appearing in mild respiratory distress Head Head exam: atraumatic and normocephalic Eye Eye exam: Present PERRL and EOMI ENT ENT exam: Present mucous membranes moist Neck Neck exam: Present normal inspection and full ROM Chest Chest inspection: Present symmetric chest wall rise Respiratory Respiratory exam: Present normal lung sounds bilaterally, respiratory distress (Mild but improving now that nasal cannula has been applied) and wheezes (Mild end expiratory right lung worse than left); Absent stridor Cardiovascular Cardiovascular exam: Present regular rate and normal rhythm Abdominal Exam Abdominal exam: Present soft; Absent distention or tenderness Extremities Exam Extremities exam: Present full ROM and edema (4+ pitting edema bilateral lower extremities) Neurological Exam Neurological exam: Present alert and oriented X3; Absent motor sensory deficit Psychiatric Psychiatric exam: Present normal affect and normal mood Skin Skin exam: Present warm and dry HEART Score HEART Score HEART Score assessment performed?: Yes History (anamnesis): Slightly suspicious ECG: Non-specific disturbance Age: >65 years Risk factors: 3 or more risk factors Troponin: </= normal limit HEART Score: 5 Procedures Miscellaneous Procedure Procedure Performed: Limited Cardiac Ultrasound Indication: Shortness of breath Identified cardiac views: [-Cardiac parasternal long axis] [-Cardiac parasternal short axis] [-Cardiac apical four-chamber] [-Cardiac subxiphoid] Findings: Cardiac activity present with no gross wall motion abnormality, trace pericardial effusion versus pericardial fat pad, RV to LV ratio approximately 1:1, no definite right heart strain Impression: Cardiac activity present with no gross wall motion abnormality, trace pericardial effusion versus pericardial fat pad, RV to LV ratio approximately 1:1, no definite right heart strain Images were saved to permanent archive The study was technically adequate CPT: 98375 This study was performed by me, and I personally interpreted all images/videos. Based on my clinical judgement, these images were adequate and did not necessitate further imaging. Critical Care Critical Care Time Critical Care Time: No Medical Decision Making Medical Records Medical records reviewed: Yes I reviewed the patient's medical records. Kendrick Inquiry Pt receiving controlled substance: No Vital Signs Vital Signs: 03/06/25 01:32 03/06/25 01:38 Temperature 99.6 F Temperature Source Oral Pulse Rate 87 Pulse Rate [Right Brachial] 88 Respiratory Rate 24 34 H Blood Pressure 112/62 Blood Pressure [Right Arm] 150/90 H Blood Pressure Mean [Right Arm] 110 Blood Pressure Source [Right Arm] Automatic Cuff Blood Pressure Position [Right Arm] Supine 02 Sat by Pulse Oximetry 80 L 96 Oxygen Delivery Method Room Air Lab Data Labs: Lab Results 03/06/25 01:17: VBG pH 7.40, VBG pCO2 50.3, VBG pO2 38.3, VBG HCO3 30.5 H, VBG Total CO2 32.1 H, VBG O2 Saturation 73.0 H, VBG Base Excess 5.7 H, VBG Lactic Acid 2.1 H 03/06/25 01:25: WBC 7.4, RBC 4.15 L, Hgb 13.5, Hct 40.6, MCV 97.8, MCH 32.5 H, MCHC 33.3, RDW 12.9, Plt Count 168, MPV 11.0 H, Neut % (Auto) 81.5 H, Lymph % (Auto) 7.7 L, Pershing % (Auto) 9.3, Eos % (Auto) 0.8, Baso % (Auto) 0.3, Neut # (Auto) 6.1, Lymph # (Auto) 0.6 L, Pershing # (Auto) 0.7, Eos # (Auto) 0.1, Baso # (Auto) 0.0, PT 12.7 H, INR 1.16 H, D-Dimer 0.66 H, Sodium 137, Potassium 2.7 L*, Chloride 99, Carbon Dioxide 32 H, Anion Gap 8.7, BUN 18 H, Creatinine 1.00, Estimated Creat Clear 74, Estimated GFR 54 L, Est GFR ( Amer) 66, Glucose 141 H, Lactate 1.4, Calcium 10.1, Total Bilirubin 0.7, AST 37 H, ALT 19, Alkaline Phosphatase 72, Troponin I < 0.01, NT-Pro-B Natriuret Pep 775 H, Total Protein 8.1, Albumin 4.3, Globulin 3.8 H, Albumin/Globulin Ratio 1.1 03/06/25 01:25 03/06/25 01:25 Response Orders (Tests/Meds): ORDERS Category Date Time Status CT angio chest PE protocol Stat Cat Scan 03/06/25 01:29 Ordered POCUS Point of Care (ER Only) Stat Exams 03/06/25 01:17 Ordered Complete Blood Count Auto Diff Stat Lab 03/06/25 01:25 Completed Comprehensive Metabolic Panel Stat Lab 03/06/25 01:25 Completed D-Dimer Stat Lab 03/06/25 01:25 Completed Full Resp Panel w/COVID ([facility]) Routine Lab 03/06/25 01:39 Received Lactic Acid Stat Lab 03/06/25 01:25 Completed NT Pro Brain Natriuretic Pep. Stat Lab 03/06/25 01:25 Completed Prothrombin Time INR Stat Lab 03/06/25 01:25 Completed Troponin I Q3H Lab 03/06/25 04:30 Ordered Troponin I Q3H Lab 03/06/25 07:30 Ordered Troponin I Stat Lab 03/06/25 01:25 Completed Blood Culture Stat Micro 03/06/25 01:34 Received VBG [Venous Blood Gas] Stat RT 03/06/25 01:17 Completed MDM Narrative Medical Decision Narrative: In summary, this 74-year-old female with comorbidities described in the HPI presents to the emergency department today with shortness of breath, productive cough. On initial evaluation patient is hypoxic on arrival to her room, 81% on room air requiring nasal cannula which is not a baseline requirement for her. She is afebrile but temperature is slightly elevated at 99.6, not tachycardic but patient does have 4+ pitting edema in the bilateral lower extremities. Lungs with mild end expiratory wheezing worse in the right lung than the left, no rhonchi or rails. Differential diagnosis includes but is not limited to ACS, PE, CHF exacerbation, hypercarbia, pneumonia, pneumothorax, pleural effusion, pericardial effusion, kidney dysfunction, electrolyte abnormality, viral syndrome, sepsis, among others. Based on these concerns, I ordered serum labs, cardiac workup, CT imaging. ECG personally interpreted demonstrates sinus rhythm, rate 84, normal axis, normal MS and QTc, incomplete right bundle branch block, patient does have depressions in the inferior leads with less than 1 mm elevation in lead aVL but no other changes. Cardiology has been paged. I spoke to Dr. Damon about this ECG. He agrees that it has some ischemic features but does not believe it is STEMI in the setting of patient's other symptoms and clinical picture at this time especially since she is not having chest pain. He did recommend giving therapeutic Lovenox. I appreciate his recommendations. This is being administered for Labs personally reviewed demonstrate no leukocytosis or anemia, pH normal at 7.4, no hypercarbia, VBG lactic only slightly elevated at 2.1, PT/INR slightly elevated but nonspecific and nonactionable, D-dimer mildly elevated at 0.66, patient is already going for CTA PE. CMP with hypokalemia, no JASSI, slight AST elevation is improved from previous according to my review of records, initial troponin undetectably low less than 0.01, BNP elevated at 775 but slightly improved from previous. With patient's BNP elevation and peripheral swelling as well as shortness of breath requiring oxygen I am going to administer IV Lasix. With her hypokalemia patient is receiving potassium IV. [id number] ultrasound personally performed and interpreted demonstrates slightly enlarged right heart though not greater than one-to-one ratio RV to LV, trace pericardial effusion versus pericardial fat pad, no focal wall motion abnormality. See procedure note for details. CTA PE personally interpreted demonstrates no large segmental or subsegmental PE, there does appear to be evidence of very mild pulmonary edema and patient has a small area of likely developing pneumonia in the distal aspect of the left upper lobe. See radiology read for final interpretation. Patient is hypoxic but has no other sirs criteria and has no leukocytosis, lactic on VBG was only slightly elevated. She is only tachypneic when she is talking, otherwise respiratory rate is in the upper teens. She does not meet criteria for sepsis. Based on my personal interpretation of CTA PE, patient is receiving IV Rocephin. At this time I believe patient is appropriate for admission. I discussed this case with the hospitalist who graciously accepted the patient for admission. She was admitted in stable condition.
[2025-03-06 01:35] LABS: VBG Base Excess 5.7 mmol/L (-2.4-2.3); VBG HCO3 30.5 mmol/L (23-30); VBG PO2 38.3 mmol/L (28-40); VBG Total CO2 32.1 mmol/L (23-27)
[2025-03-06 01:38] LABS: Lactate Venous 2.1 mmol/L (0.4-2.0); VBG PCO2 50.3 mmol/L (35-51)
[2025-03-06 01:38] LABS: Basophils % 0.3 % (0.1-2.0); Eosinophils # 0.1 Kmm3 (0.0-0.4); Eosinophils % 0.8 % (0.1-12.0); Hematocrit 40.6 % (37.0-47.0); Hemoglobin 13.5 g/dL (12.2-16.2); Immature Granulocytes # 0.03 10^3uL; Immature Granulocytes % 0.4 %; Lymphocytes # 0.6 K/mm3 (0.7-4.5); Lymphocytes % 7.7 % (10-50); Mean Corpuscular HGB Conc 33.3 g/dL (31.8-35.4); Mean Corpuscular Hemoglobin 32.5 pg (27.0-31.2); Mean Corpuscular Volume 97.8 fl (81-99); Monocytes # 0.7 K/mm3 (0.1-1.0); Monocytes % 9.3 % (1.7-9.3); Neutrophils # 6.1 K/mm3 (1.8-7.8); Neutrophils % 81.5 % (37.0-80.0); Nucleated Red Blood Cells # 0 10^3/uL; Nucleated Red Blood Cells % 0 %; Platelet Count 168 K/mm3 (142-424); Red Blood Count 4.15 M/mm3 (4.20-5.40); Red Cell Distribution Width 12.9 % (11.5-17.5); Red Cell Distribution Width-SD 46.3 fL; White Blood Count 7.4 K/mm3 (4.8-10.8)
--- NOTE | 2025-03-06 01:38 | PC.NURSE ---
Pt placed on 3lpm nasal O2 due to low O2 Sat 93% after O2. Skin pink warm and dry Resp full and slightly labored Speech clear and appropriate. at bedside. Lungs inspiratory wheezes bilaterally to posterior auscultation
[2025-03-06 01:43] LABS: Adenovirus,PCR Not Detected (NotDetected); Bordetella Pertussis Not Detected (NotDetected); Chlamydophila Pneumoniae, PCR Not Detected (NotDetected); Coronavirus 19, PCR Not Detected (NotDetected); Coronavirus 229E Not Detected (NotDetected); Coronavirus NL63 Not Detected (NotDetected); Coronavirus OC43 Not Detected (NotDetected); Coronovirus HKU1,PCR Not Detected (NotDetected); Human Metapneumovirus Not Detected (NotDetected); Influenza A, PCR Not Detected (NotDetected); Influenza AH1, 2009 Not Detected (NotDetected); Influenza AH1, PCR Not Detected (NotDetected); Influenza AH3,PCR Not Detected (NotDetected); Influenza B, PCR Not Detected (NotDetected); Mycoplasma Pneumoniae, PCR Not Detected (NotDetected); Parainfluenza 1, PCR Not Detected (NotDetected); Parainfluenza 2, PCR Not Detected (NotDetected); Parainfluenza 4, PCR Not Detected (NotDetected); Respiratory Syncytial Virus Not Detected (NotDetected); Rhinovirus/Enterovirus Not Detected (NotDetected)
--- NOTE | 2025-03-06 01:43 | PC.NURSE ---
Pt in SR per continous heart monitor
[2025-03-06 01:45] LABS: INR 1.16 (0.9-1.1); Prothrombin Time 12.7 seconds (10.1-12.5)
[2025-03-06 01:48] LABS: Alanine Aminotransferase 19 U/L (12-78); Albumin Level 4.3 g/dl (3.5-5.0); Albumin/Globulin Ratio 1.1 (1.1-1.8); Alkaline Phosphatase 72 U/L (38-126); Anion Gap 8.7 mEq/L (5-15); Aspartate Amino Transferase 37 U/L (14-36); Bilirubin,Total 0.7 mg/dl (0.2-1.3); Blood Urea Nitrogen 18 mg/dl (7-17); Calcium 10.1 mg/dl (8.4-10.2); Carbon Dioxide 32 mmol/L (22.0-30.0); Chloride 99 mmol/L (98-107); Creatinine Clearance Estimated 74 mL/min (50-200); Estimated Glomerular Filt Rate 54 ml/min (>60); GFR (African American) 66 ML/MIN (>60); Globulin 3.8 g/dL (1.3-3.2); Glucose 141 mg/dl (74-100); Sodium 137 mmol/L (136-145); Total Protein,Serum 8.1 g/dl (6.3-8.2)
[2025-03-06 01:49] LABS: Lactic Acid 1.4 mmol/L (0.7-2.1)
[2025-03-06 01:52] LABS: D-Dimer 0.66 ug/mL (0.0-0.5); Potassium 2.7 mmoL/L (3.5-5.1)
--- NOTE | 2025-03-06 01:55 | PC.NURSE ---
Pt to CT scan via wheelchair
[2025-03-06 02:01] LABS: NT Pro Brain Natriuretic Pep. 775 pg/mL (0-125); Troponin I < 0.01 ng/ml (0.00-0.034)
--- NOTE | 2025-03-06 02:06 | PC.NURSE ---
Pt back from CT scan
[2025-03-06] MEDS: ENOXAPARIN 100MG/ML SYRINGE 95 MG SUBCUT (02:07)
[2025-03-06] MEDS: SODIUM CHLORIDE 0.9% 10ML SYR (RAD ONLY) 10 ML IV (02:09)
[2025-03-06] MEDS: IOPAMIDOL-370 (76%);100ML BOTTLE 70 ML IV (02:09)
[2025-03-06] MEDS: 0.9 % SODIUM CHLORIDE 50 ML VIAL IV (02:09)
[2025-03-06] MEDS: POTASSIUM CHLORIDE 20MEQ TAB 20 MEQ PO (02:18)
[2025-03-06] MEDS: KCl 10mEq/100ml 100 ML 100 MEQ IV ×5 (02:19→20:39)
[2025-03-06] MEDS: CEFTRIAXONE 1 GM 1 GM in 0.9 % SODIUM CHLORIDE 50 ML IV (02:28)
--- NOTE | 2025-03-06 02:34 | PC.NURSE ---
Pt aware of plans for admission IV infusing without difficulty
--- NOTE | 2025-03-06 02:52 | PC.NURSE ---
Report given to Alvarez LAWSON Pt transported to inpatient unit via stretcher with O2 and IV
--- NOTE | 2025-03-06 03:01 | CA_ITS ---
APPROVED REPORT EXAM: Comprehensive 2D, Doppler, and color-flow Echocardiogram Drug Safety Associate: Alison Christine CRT Ht: 5 ft 4 in Wt: 210lbs BSA: 2.00 BP: 140/70 mmHg Indications: Mitral Valve Disease, Shortness of Breath, Peripheral Edema, Hyperlipidemia, Hypertension/HDD Echo Enhancing Agent Indication: Endocardial border delineation Agent(s) / Amount(s) Used: Definity 2 cc Comments: Definity given 2D Dimensions LA Volume 43.00 mL LA Volume Index 21.00 mL/m2 (M/F) 16-34 M-Mode Dimensions RVDd 2.14 cm (0.9-2.6) LA Diam 3.44 cm (1.9-4.0) LVDd 4.56 cm (3.5-5.7) LVDs 3.24 cm (3.5-5.7) IVSd 1.61 cm (0.6-1.1) PWd 0.79 cm (0.6-1.1) EF (Teich) 55.80% FS 28.90% EDV (Teich) 95.40 mL TAPSE 1.98 (<1.7) ESV (Teich) 42.20 mL LV Diastology E Decel Time 443 (160-240 msec) E/A Ratio 1.03 MED A' 10.40 cm/s LAT A' 5.60 cm/s Aortic Valve KAMLA Index 0.92 cm2/m2 AoV Peak Rick. 269.0 (50-130 cm/s) AO Peak GR. 29.00 mmHg AO Mean GR. 16.70 (<5 mmHg) AO VTI 47.1 (18-25 cm) KAMLA (VTI) 1.89 (2.5-4.5 cm2) Mitral Valve MV E Max Rick. 205.0 (40-130 cm/s) MV A Velocity 199.0 (40-130 cm/s) E/A Ratio 1.03 MV Mean Gr. 13.80 (<2mmHg) MV PHT 130.0 ms Pulmonary Valve PV Peak Velocity 116.0 (50-150 cm/s) Tricuspid Valve TR P. Velocity 242.00 cm/s RAP Estimate 10.00 mmHg RVSP 33.40 mmHg Left Ventricle The left ventricle is normal size. The left ventricular systolic function is normal. The left ventricular ejection fraction is within the normal range. There is increased LV wall thickness. There is normal LV segmental wall motion. Diastolic function is indeterminate. LVEF is 55%. Right Ventricle Right ventricle is mildly dilated. The right ventricular systolic function is normal. Atria The left atrium is severely dilated. Right atrium is moderately dilated. There is no Doppler evidence of interatrial shunt. Aortic Valve The aortic valve is mildly thickened. Trace aortic regurgitation. Mild aortic stenosis is present. KAMLA by continuity equation is 1.9 cm???. Peak velocity 2.7 m/s. Mean AV gradient 18 mmHg. Max AV gradient 30 mmHg. Mitral Valve Mild mitral annular calcification. The mitral valve leaflets are moderately thickened. The mitral valve leaflets appear rheumatic. Diastolic doming is present. Severe mitral stenosis is present. MVA by PHT method is 1.2 cm???. Mean MV gradient is 14 mmHg (HR 80 bpm). Trace mitral regurgitation. Tricuspid Valve Tricuspid valve is grossly normal in structure and function. Trace tricuspid regurgitation. There is insufficient TR jet to estimate RVSP. Trace pulmonic regurgitation. The ascending aorta is borderline dilated, measuring 3.7 cm in diameter. Pulmonic Valve The pulmonary valve is normal in structure. Great Vessels The aortic root is normal in size. IVC is normal in size and collapses >50% with inspiration. Pericardium There is no pericardial effusion. Other Information Study Quality: Fair Conclusion Normal biventricular systolic function. Mild RV dilation. Biatrial dilation. 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 Mean MV gradient is 14 mmHg (HR 80 bpm)] Mild (KAMLA by continuity equation is 1.9 cm???. Peak velocity 2.7 m/s. Mean AV gradient 18 mmHg. Max AV gradient 30 mmHg). Borderline dilated ascending aorta, measuring 3.7 cm in diameter. In the setting of significant rheumatic MS, early referral to interventional cardiology vs. surgical evaluation is suggested. Electronically signed by : Lynn Alvarez MD 03/06/2025 12:28:21
[2025-03-06 03:05] LABS: Parainfluenza 3, PCR Detected (NotDetected)
--- NOTE | 2025-03-06 03:06 | PC.NURSE ---
Patient arrived to floor via wheelchair from ED at 03:00.
--- NOTE | 2025-03-06 03:17 | P.HP_ITS ---
<Statement entered by Asif Christianson MD - 03/06/25 11:20> Rounded on patient after nurse practitioner. Personally examined and interviewed patient. Agree with exam findings and care plan as documented. Discussed case with cardiology and pulmonology today. Patient found to be parainfluenza positive. Responding to diuretics. Continue Bumex 1 mg IV twice daily. Negative at least 1 L since admission and breathing better. Weaned to 2 L on rounds. Maintain sats greater 90%. No further antibiotics due to viral etiology. Pulmonology recommends initiating Advair. Kidney function normal with BUN 18, creatinine 1.0. Electrolyte replacement per protocol due to potassium of 2.7 and magnesium 1.3. Troponin stable at 0.03-0.04. Consistent with type II NSTEMI. Further recommendations pending cardiology's evaluation. Continues to require inpatient management History of Present Illness *Admission Date: 03/06/25 *Reason for visit:: Respiratory failure secondary to parainfluenza 3 infection *History of present illness: Ms. Ball is a 74-year-old female whose son and child have all been ill she now has become ill. She has been having difficulty breathing O2 sats have begun to decrease. So she is come to the emergency room. Patient is noted as being obese but noting that weight in 2019 was 244 pounds she is now down to 210.. She is a non-smoker. Patient though has a significant cardiac history and sees Dr. Mark in [place], and Dr. Colon for her renal function in [place]. The patient was supposed to have seen her doctors in August but was unable to due to snow, then also I believe in October or late September but she had the flu. So she has not seen her specialist since before August 2024. She notes that she normally has very large legs with edema she is actually on spironolactone at this time.. On coming into the emergency room patient also noted as having low potassium. She did say that she was supposed to get back with her [employer] pegger because of her tricuspid valve question whether or not it needed to be replaced. Also an old records found that she has pulmonary hypertension. In [address] Damon and had a catheterization, noting no blockages of any significance found.. Presently do not have records to her [place] providers. Oxygen saturations decreased to is much as 81%. Patient noted that normally she is able to get up walk do what ever she needs to. Now she would have difficulty walking more than [address] scan which shows early meant of possible left upper lung infection, her present vital signs cardiac history with this edema and talking with the ER physician do believe that she needs to be admitted. Patient is receiving replacement potassium at this time for hypokalemia, will monitor oxygen saturation nasal cannula be adjusted to keep O2 sats greater than 93% start breathing treatments. Have consulted cardiology and pulmonology ordered cardiac echo to determine ejection fraction which in 2019 was normal. Patient will be continually monitored on insulation helper and pulse ox.. Noting that the ER physician did speak with Dr. Damon upon the patient was being evaluated in the ER [facility] Disclaimer: The information contained in this section may have been updated after the patient was seen, as this information can be updated by other users. Medical History (Updated 03/06/25 @ 11:20 by Asif Christianson MD) Acute on chronic heart failure with preserved ejection fraction (HFpEF) Elevated troponin Chest pain Mitral valve stenosis, moderate Hypomagnesemia Thickened endometrium Influenza A Acute hypokalemia Congestive heart failure Morbid obesity with body mass index (BMI) of 40.0 or higher Dyspnea CAD (coronary artery disease) Remote history of stroke Hyperlipidemia Hypertension Obesity Surgical History History of hysteroscopy S/P cholecystectomy H/O tubal ligation Family History (Updated 03/06/25 @ 03:23 by Ky Floyd APRN) Mother Cancer Sister Cancer Other Coronary artery disease Social History Smoking Status: Never smoker second hand exposure: No alcohol intake: never substance use type: denies use current occupational status: retired Travel in the last 8 weeks?: None household members: spouse housing: house current occupational exposures/hazards: No Have you lived/traveled outside [place] in past 30 days?: No Contact w/someone who lives/traveled outside US past 30 days?: No Exposure to someone with infectious disease in past 14 days?: No Do you have a fever (greater than 100.4 F or 38 C)?: No Have you tested positive for COVID-19?: No Exposed to someone with COVID-19 in past 14 days?: No Do you have a sore throat?: No Do you have a cough?: Yes Do you have any weakness?: No Do you have any diarrhea?: No Are you experiencing any unusual bleeding?: No Do you have any muscle aches/pain?: No Do you have any abdominal pain?: No Are you experiencing loss of taste or smell?: No Other Medical History Have you received the Flu Vaccine for this season: Yes Have you received the Pneumonia Vaccine: Yes Review of Systems Review of Systems Review of systems:: pertinent systems reviewed and negative unless documented below Constitutional Constitutional: Reports as per HPI, Reports body ache(s), Reports fatigue and Reports lethargy Eyes Eyes: Reports as per HPI ENT Ears, Nose, Mouth, and Throat: Reports as per HPI *Cardiovascular Cardiovascular: Reports as per HPI, Reports dyspnea, Reports dyspnea on exertion and Reports edema (Chronic lower leg edema) *Respiratory Respiratory: Reports as per HPI, Reports chest congestion, Reports cough, Reports dyspnea and Reports dyspnea on exertion *Gastrointestinal Gastrointestinal: Reports as per HPI and Reports bloating *Genitourinary Genitourinary: Reports as per HPI *Musculoskeletal Musculoskeletal: Reports as per HPI Integumentary/Breasts Skin/Breast: Reports as per HPI *Neurologic Neurologic: Reports as per HPI Psychiatric Psychiatric: Reports as per HPI Endocrine Endocrine: Reports as per HPI and Reports fatigue Hematologic/Lymphatic Hematologic/Lymphatic: Reports as per HPI Allergic/Immunologic Allergic/Immunologic: Reports as per HPI Meds Home Medications and Allergies Home Medications ?Medication ?Instructions ?Recorded ?Confirmed ?Type aspirin 81 mg tablet,delayed 81 mg PO DAILY 06/26/20 0 03/06/25 History release levothyroxine 50 mcg tablet 50 mcg PO DAILY 06/26/20 0 03/06/25 History lovastatin 40 mg tablet 40 mg PO HS 06/26/20 5 History omega-3 fatty acids-fish oil 340 1 each PO DAILY 06/2603/06/25 History mg-1,000 mg capsule cyanocobalamin (vitamin B-12) 1,000 mcg PO DAILY 08/0903/06/25 History 1,000 mcg/mL oral drops rivaroxaban 2.5 mg tablet (Xarelto) 2.5 mg PO BID 01/1003/06/25 History hydralazine 50 mg tablet 50 mg PO BID 10/23/24 History hydrochlorothiazide 12.5 mg capsule 12.5 mg PO DAILY 0 03/06/25 03/06/25 History metoprolol succinate 100 mg 50 mg PO BID 03/06/2502/18 History tablet,extended release 24 hr potassium chloride 20 mEq 20 meq PO DAILY 03/06/25 History tablet,extended release(part/cryst) New Prescriptions to Start Prescriptions: Allergies Allergy/AdvReac Type Severity Reaction Status Date / Time codeine (CODEINE) Allergy Unknown I-RASH Verified 03/04/23 11:02 Sulfa (Sulfonamide Allergy Unknown I-RASH Verified 03/04/23 11:02 Antibiotics) (SULFA (SULFONAMIDE ANTIBIOTICS)) Exam Data for Last 24 hours Vital signs and Labs for Last 24 Hours: Temp Pulse Resp BP Pulse Ox O2 Del Method 99.2 F 87 24 112/62 96 Room Air 03/06/25 02:53 03/06/25 02:53 03/06/25 02:53 03/06/25 02:53 03/06/25 01:38 03/06/25 02:53 Laboratory Results - last 24 hr 03/06/25 01:17: VBG pH 7.40, VBG pCO2 50.3, VBG pO2 38.3, VBG HCO3 30.5 H, VBG Total CO2 32.1 H, VBG O2 Saturation 73.0 H, VBG Base Excess 5.7 H, VBG Lactic Acid 2.1 H 03/06/25 01:25: WBC 7.4, RBC 4.15 L, Hgb 13.5, Hct 40.6, MCV 97.8, MCH 32.5 H, MCHC 33.3, RDW 12.9, Plt Count 168, MPV 11.0 H, Neut % (Auto) 81.5 H, Lymph % (Auto) 7.7 L, [place] % (Auto) 9.3, Eos % (Auto) 0.8, Baso % (Auto) 0.3, Neut # (Auto) 6.1, Lymph # (Auto) 0.6 L, [place] # (Auto) 0.7, Eos # (Auto) 0.1, Baso # (Auto) 0.0, PT 12.7 H, INR 1.16 H, D-Dimer 0.66 H, Sodium 137, Potassium 2.7 L*, Chloride 99, Carbon Dioxide 32 H, Anion Gap 8.7, BUN 18 H, Creatinine 1.00, Estimated Creat Clear 74, Estimated GFR 54 L, Est GFR ( Amer) 66, Glucose 141 H, Lactate 1.4, Calcium 10.1, Total Bilirubin 0.7, AST 37 H, ALT 19, Alkaline Phosphatase 72, Troponin I < 0.01, NT-Pro-B Natriuret Pep 775 H, Total Protein 8.1, Albumin 4.3, Globulin 3.8 H, Albumin/Globulin Ratio 1.1 03/06/25 01:39: Chlamy pneumoniae PCR Not detected, Adenovirus (PCR) Not detected, B. pertussis DNA (PCR) Not detected, Coronavirus OC43 (PCR) Not detected, Coronavirus HKU1 (PCR) Not detected, Coronavirus 229E (PCR) Not detected, SARS-CoV-2 (PCR) Not detected, Coronavirus NL63 (PCR) Not detected, Human Metapneumovir PCR Not detected, Influenza A (H1) PCR Not detected, Influ A (H1N1/09) PCR Not detected, Influenza A (H3) PCR Not detected, Influenza Type A (PCR) Not detected, Influenza Type B (PCR) Not detected, M. pneumoniae (PCR) Not detected, Parainfluenza 1 (PCR) Not detected, Parainfluenza 2 (PCR) Not detected, Parainfluenza 3 (PCR) Detected A, Parainfluenza 4 (PCR) Not detected, RSV (PCR) Not detected, Entero/Rhino (PCR) Not detected I & O for Last 24 hours: Intake & Output 03/03/25 03/04/25 03/05/25 03/06/25 05:59 05:59 05:59 05:59 Weight 210 lb Radiology Reports for the Last 24 Hours: T8 vertebrae with some compression injury, left upper lobe early accumulation of potential fluid/pneumonia Constitutional Constitutional: mild distress, morbidly obese and chronically ill appearing *Routine HEENT Exam Head: Present normocephalic, atraumatic and cushingoid faces Eye: Present EOMI and PERRL ENT: Present mucous membranes moist *Routine Neck Exam Neck: Present supple and full ROM Comments: Moves her neck well no signs of swelling no signs of limitation *Routine Respiratory Exam Respiratory: Present decreased breath sounds, rales, normal respiratory effort, able to speak in complete sentences and symmetric chest movement Comments: Examine the lungs especially posterior hear rattling Rales in the left upper lobe., Right lung just trace but basically normal lung sounds. She has equal expansion bilaterally, only mild coughing nonproductive *Routine Cardiovascular Exam Cardiovascular: Present RRR, Normal S1 and Normal S2 Comments: Patient gave me a history of mitral valve restriction. Listening to heart sounds do not hear any significant murmurs or bruits, S1 and S2 are fairly distinct with good regular rhythm heart is not working too hard despite her illness *Routine Abdominal Exam Abdominal: Present soft and normoactive bowel sounds Comments: Large bloated abdomen unable to really determine size of organs related to her body habitus *Routine Rectal Exam Rectal:: deferred *Routine Genitalia Exam Genitalia:: deferred *Routine Extremities Exam Extremities: Present edema (4+ pitting edema both lower extremities from above the knees to the feet, ) *Routine Skin Exam Skin: Present intact, dry and warm *Routine Neurological Exam Neurological: Present alert, oriented X3, CN II-XII intact, normal reflexes, moving all extremities, normal tone, vision grossly intact and hearing grossly intact Comments: Patient shows no signs of any neurological deficit Routine Psychiatric Exam Psychiatric: Present normal affect, normal thought process, cooperative, good insight and good judgment Comments: Very nice lady easy to talk with family is in the room everybody seems to be getting along very well good family unit H&P: Result Impressions 1. Parainfluenza 3 with cough exacerbation respiratory status requiring oxygen. Also complicating history of peripheral edema potentially CHF pulmonary hypertension and mitral valve restriction. 2. New onset of oxygen requirement will be doing breathing treatments keeping the patient on oxygen Imaging and Cardiology CT scan - chest: Status: image reviewed by me Additional comments: Early infiltrate left upper posterior lung Assessment and Plan *Assessment and plan (1) Acute hypoxic respiratory failure: Status: Acute Category: Medical Code(s): J96.01 - Acute respiratory failure with hypoxia (2) Pneumonia: Status: Acute Category: Medical Code(s): J18.9 - Pneumonia, unspecified organism (3) Infection due to parainfluenza virus 3: Status: Acute Category: Medical Code(s): B34.8 - Other viral infections of unspecified site (4) Hypokalemia: Status: Acute Category: Medical Code(s): E87.6 - Hypokalemia (5) Mitral stenosis: Status: Chronic Qualifiers: Cardiac valve disease etiology: rheumatic Qualified Code(s): I05.0 - Rheumatic mitral stenosis Category: Medical Code(s): I05.0 - Rheumatic mitral stenosis (6) Renal insufficiency: Status: Acute Category: Medical Code(s): N28.9 - Disorder of kidney and ureter, unspecified (7) Obesity: Status: Acute Qualifiers: Body mass index: BMI 40.0-44.9 Obesity classification: adult class 3 (BMI >= 40) Obesity type: due to excess calories Serious obesity comorbidity presence: with serious comorbidity Qualified Code(s): E66.01 - Morbid (severe) obesity due to excess calories; Z68.41 - Body mass index [BMI]40.0-44.9, adult Category: Medical Code(s): E66.9 - Obesity, unspecified (8) Acute on chronic heart failure with preserved ejection fraction (HFpEF): Status: Acute Category: Medical Code(s): I50.33 - Acute on chronic diastolic (congestive) heart failure (9) NSTEMI (non-ST elevated myocardial infarction): Problem Comment: Type II due to underlying respiratory infection Status: Acute Category: Medical Code(s): I21.4 - Non-ST elevation (NSTEMI) myocardial infarction Plan 1. For respiratory infection related to parainfluenza. Oxygen as needed. Breathing treatments as noted will continue Rocephin., Have not added any steroids at this time 2. Cardiology history of significant chronic edema to lower extremities with a history of possible mitral valve replacement needed. Old records have been sent for from her present [employer] pegger in [place], cardiology consult on here Dr. Damon has been notified about the patient have ordered an echocardiogram for the morning 3. Renal insufficiency. At this time very mild per the family it had gotten really bad in the past but has recovered. 4, noting that the patient has morbid obesity but no signs of diabetes per her labs or history. And also noting that over the last couple of years she has actually decreased by 30 pound.
--- NOTE | 2025-03-06 03:53 | EXP.EVENT.NO ---
Problem: Patient moved up to the floor had to have oxygen increased to 6 L was feeling she was not getting enough air. exam wheezing in lungs continue/examined the patient moving air in both lungs respiratory rate up about 25, sats have improved on increased oxygen and receiving neb treatment Solu-Medrol being given I am going to add 1 mg of Bumex IV. plan, talked with respiratory did not feel Vapotherm was needed at the moment. But will order 1 dose Solu-Medrol and change DuoNebs also to every as needed. Talked with respiratory therapist to feel free if needed to add Vapotherm or to place the patient on BiPAP, Bumex 1 mg IV
[2025-03-06] MEDS: IPRATROPIUM/ALBUTEROL 3 ML NEB IH ×2 (03:55→06:02)
[2025-03-06] MEDS: METHYLPREDNISOLONE SOD SUCC 125MG VIAL 125 MG IV (03:57)
[2025-03-06] MEDS: ONDANSETRON 4MG/2ML VIAL 4 MG IV (04:04)
[2025-03-06] MEDS: BUMETANIDE 1MG/4ML VIAL 1 MG IV ×3 (04:12→17:28)
[2025-03-06 05:08] LABS: Troponin I 0.03 ng/ml (0.00-0.034)
[2025-03-06 05:12] LABS: Basophils % 0.3 % (0.1-2.0); Eosinophils % 0.1 % (0.1-12.0); Hematocrit 39.9 % (37.0-47.0); Hemoglobin 13.1 g/dL (12.2-16.2); Immature Granulocytes # 0.02 10^3uL; Immature Granulocytes % 0.3 %; Lymphocytes # 0.6 K/mm3 (0.7-4.5); Lymphocytes % 8.2 % (10-50); Mean Corpuscular HGB Conc 32.8 g/dL (31.8-35.4); Mean Corpuscular Hemoglobin 32.7 pg (27.0-31.2); Mean Corpuscular Volume 99.5 fl (81-99); Mean Platelet Volume 10.5 fl (7.4-10.4); Monocytes # 0.5 K/mm3 (0.1-1.0); Monocytes % 7.2 % (1.7-9.3); Neutrophils # 6.3 K/mm3 (1.8-7.8); Neutrophils % 83.9 % (37.0-80.0); Nucleated Red Blood Cells # 0 10^3/uL; Nucleated Red Blood Cells % 0 %; Platelet Count 177 K/mm3 (142-424); Red Blood Count 4.01 M/mm3 (4.20-5.40); Red Cell Distribution Width 12.9 % (11.5-17.5); Red Cell Distribution Width-SD 47.2 fL; White Blood Count 7.6 K/mm3 (4.8-10.8)
[2025-03-06 05:18] LABS: Lactic Acid 1.2 mmol/L (0.7-2.1)
[2025-03-06 05:37] LABS: Reflex Lactic Add Lactic Reflex
[2025-03-06 05:39] LABS: Magnesium 1.3 mg/dl (1.6-2.3)
[2025-03-06] MEDS: MAGNESIUM SULFATE IN WATER 2 GM/50 ML PIGGYBACK IV ×3 (06:56→09:00)
[2025-03-06] MEDS: DEFINITY US ECHO CONTRAST 2ML INJ 2 MG IV (07:33)
[2025-03-06 07:44] LABS: VBG Base Excess 3.1 mmol/L (-2.4-2.3); VBG HCO3 28.6 mmol/L (23-30); VBG Oxygen Saturation 93.9 % (50-70); VBG PH 7.36 mmol/L (7.31-7.41); VBG PO2 67.9 mmol/L (28-40); VBG Total CO2 30.2 mmol/L (23-27)
--- NOTE | 2025-03-06 07:44 | HMH.PHAINT1 ---
Pharmacy Intervention Comments: HOME MEDICATION LIST VERIFIED USING LIST FROM OUTPATIENT PHARMACY AND PT INTERVIEW
[2025-03-06 07:49] LABS: Lactate Venous 2.1 mmol/L (0.4-2.0); VBG PCO2 52.4 mmol/L (35-51)
[2025-03-06 08:10] LABS: Troponin I 0.04 ng/ml (0.00-0.034)
[2025-03-06] MEDS: ENOXAPARIN 40MG/0.4ML SYRINGE 40 MG SUBCUT (08:13)
--- NOTE | 2025-03-06 09:54 | EXP.PULM.CON ---
History of Present Illness History of present illness: Ms. Valdez is a 74-year-old female no significant smoking history carries a questionable diagnosis of asthma not using any inhalers at baseline presented to the ER complaining of worsening respiratory distress and pulmonary was called for further evaluation and management. Reported history of flu around September 2024. Not using any oxygen supplementation at baseline [facility] Disclaimer: The information contained in this section may have been updated after the patient was seen, as this information can be updated by other users. Medical History (Updated 03/06/25 @ 11:20 by Asif Christianson MD) Acute on chronic heart failure with preserved ejection fraction (HFpEF) Elevated troponin Chest pain Mitral valve stenosis, moderate Hypomagnesemia Thickened endometrium Influenza A Acute hypokalemia Congestive heart failure Morbid obesity with body mass index (BMI) of 40.0 or higher Dyspnea CAD (coronary artery disease) Remote history of stroke Hyperlipidemia Hypertension Obesity Surgical History History of hysteroscopy S/P cholecystectomy H/O tubal ligation Family History (Updated 03/06/25 @ 03:23 by Ky Floyd APRN) Mother Cancer Sister Cancer Other Coronary artery disease Social History Smoking Status: Never smoker second hand exposure: No alcohol intake: never substance use type: denies use current occupational status: retired Travel in the last 8 weeks?: None household members: spouse housing: house current occupational exposures/hazards: No Have you lived/traveled outside [place] in past 30 days?: No Contact w/someone who lives/traveled outside [place] past 30 days?: No Exposure to someone with infectious disease in past 14 days?: No Do you have a fever (greater than 100.4 F or 38 C)?: No Have you tested positive for COVID-19?: No Exposed to someone with COVID-19 in past 14 days?: No Do you have a sore throat?: No Do you have a cough?: Yes Do you have any weakness?: No Do you have any diarrhea?: No Are you experiencing any unusual bleeding?: No Do you have any muscle aches/pain?: No Do you have any abdominal pain?: No Are you experiencing loss of taste or smell?: No Review of Systems Constitutional Constitutional: Reports anorexia, Reports body ache(s) and Reports fatigue Eyes Eyes: Denies eye discharge, Denies dry eyes, Denies irritation and Denies itchy eyes ENT Ears, Nose, Mouth, and Throat: Denies epistaxis, Denies facial pain, Denies lip swelling and Denies throat swelling *Cardiovascular Cardiovascular: Reports dyspnea and Reports dyspnea on exertion *Respiratory Respiratory: Denies change in phlegm color, Reports chest congestion, Reports cough, Reports dyspnea, Reports dyspnea on exertion, Denies excessive phlegm production, Denies hemoptysis, Denies pain on inspiration, Denies pain with cough and Reports wheezing *Gastrointestinal Gastrointestinal: Denies abdominal pain, Denies belching and Denies cramping *Musculoskeletal Musculoskeletal: Reports back pain, Reports myalgias and Reports other (No small joint swelling or Pain) *Neurologic Neurologic: Reports as per HPI Psychiatric Psychiatric: Denies homicidal ideation and Denies suicidal ideation Endocrine Endocrine: Reports fatigue and Denies heat intolerance Hematologic/Lymphatic Hematologic/Lymphatic: Denies easy bleeding and Denies lymphadenopathy Allergic/Immunologic Allergic/Immunologic: Denies itchy eyes, Denies lip swelling, Denies throat swelling and Reports wheezing Pulmonology Exam Inpatient Vital signs and Labs for Last 24 Hours: Temp Pulse Resp BP Pulse Ox O2 Del Method O2 Flow Rate 98.6 F 70 19 116/61 95 Nasal Cannula 4 03/06/25 07:27 03/06/25 08:00 03/06/25 07:27 03/06/25 07:27 03/06/25 08:00 03/06/25 09:00 03/06/25 09:00 Laboratory Results - last 24 hr 03/06/25 01:17: VBG pH 7.40, VBG pCO2 50.3, VBG pO2 38.3, VBG HCO3 30.5 H, VBG Total CO2 32.1 H, VBG O2 Saturation 73.0 H, VBG Base Excess 5.7 H, VBG Lactic Acid 2.1 H 03/06/25 01:25: WBC 7.4, RBC 4.15 L, Hgb 13.5, Hct 40.6, MCV 97.8, MCH 32.5 H, MCHC 33.3, RDW 12.9, Plt Count 168, MPV 11.0 H, Neut % (Auto) 81.5 H, Lymph % (Auto) 7.7 L, Eaton % (Auto) 9.3, Eos % (Auto) 0.8, Baso % (Auto) 0.3, Neut # (Auto) 6.1, Lymph # (Auto) 0.6 L, Eaton # (Auto) 0.7, Eos # (Auto) 0.1, Baso # (Auto) 0.0, PT 12.7 H, INR 1.16 H, D-Dimer 0.66 H, Sodium 137, Potassium 2.7 L*, Chloride 99, Carbon Dioxide 32 H, Anion Gap 8.7, BUN 18 H, Creatinine 1.00, Estimated Creat Clear 74, Estimated GFR 54 L, Est GFR ( Amer) 66, Glucose 141 H, Lactate 1.4, Calcium 10.1, Total Bilirubin 0.7, AST 37 H, ALT 19, Alkaline Phosphatase 72, Troponin I < 0.01, NT-Pro-B Natriuret Pep 775 H, Total Protein 8.1, Albumin 4.3, Globulin 3.8 H, Albumin/Globulin Ratio 1.1 03/06/25 01:39: Chlamy pneumoniae PCR Not detected, Adenovirus (PCR) Not detected, B. pertussis DNA (PCR) Not detected, Coronavirus OC43 (PCR) Not detected, Coronavirus HKU1 (PCR) Not detected, Coronavirus 229E (PCR) Not detected, SARS-CoV-2 (PCR) Not detected, Coronavirus NL63 (PCR) Not detected, Human Metapneumovir PCR Not detected, Influenza A (H1) PCR Not detected, Influ A (H1N1/09) PCR Not detected, Influenza A (H3) PCR Not detected, Influenza Type A (PCR) Not detected, Influenza Type B (PCR) Not detected, M. pneumoniae (PCR) Not detected, Parainfluenza 1 (PCR) Not detected, Parainfluenza 2 (PCR) Not detected, Parainfluenza 3 (PCR) Detected A, Parainfluenza 4 (PCR) Not detected, RSV (PCR) Not detected, Entero/Rhino (PCR) Not detected 03/06/25 04:47: WBC 7.6, RBC 4.01 L, Hgb 13.1, Hct 39.9, MCV 99.5 H, MCH 32.7 H, MCHC 32.8, RDW 12.9, Plt Count 177, MPV 10.5 H, Neut % (Auto) 83.9 H, Lymph % (Auto) 8.2 L, Eaton % (Auto) 7.2, Eos % (Auto) 0.1, Baso % (Auto) 0.3, Neut # (Auto) 6.3, Lymph # (Auto) 0.6 L, Eaton # (Auto) 0.5, Eos # (Auto) 0.0, Baso # (Auto) 0.0, Lactate 1.2, Magnesium 1.3 L, Troponin I 0.03 03/06/25 07:33: Troponin I 0.04 H 03/06/25 07:51: VBG pH 7.36, VBG pCO2 52.4 H, VBG pO2 67.9 H, VBG HCO3 28.6, VBG Total CO2 30.2 H, VBG O2 Saturation 93.9 H, VBG Base Excess 3.1 H, VBG Lactic Acid 2.1 H I & O for Labs for Last 24 Hours: Intake & Output 03/03/25 03/04/25 03/05/25 03/06/25 23:59 23:59 23:59 23:59 Intake Total 360 / 360 Output Total 0 / 0 Balance 360 / 360 Weight 203 lb 8 oz Constitutional: Present moderate distress Head: Present normocephalic and atraumatic ENT: Present normal exam, normal oropharynx and mucous membranes moist Neck: Present normal inspection and full ROM Respiratory: Present prolonged expiratory phase, respiratory distress and able to speak in complete sentences; Absent diminished air movement Cardiac: Present S1/S2, Tachycardia and radial pulses present GI: Present soft and distention; Absent tenderness or guarding Rectal (female): Present deferred (female): Present deferred Skin: Present intact; Absent cyanosis or jaundice Neuro: Present alert, awake and oriented x 3 Extremities: Present normal inspection; Absent clubbing or cyanosis Psychiatric: Present normal affect and cooperative Meds Home Medications and Allergies Home Medications ?Medication ?Instructions ?Recorded ?Confirmed ?Type aspirin 81 mg tablet,delayed 81 mg PO DAILY 06/26/20 03/06/25 History release levothyroxine 50 mcg tablet 50 mcg PO DAILY 06/26/20 03/06/25 History lovastatin 40 mg tablet 40 mg PO HS 06/26/20 03/06/25 History omega-3 fatty acids-fish oil 340 1 each PO DAILY 06/26/20 03/06/25 History mg-1,000 mg capsule cyanocobalamin (vitamin B-12) 1,000 mcg PO DAILY 08/09/20 03/06/25 History 1,000 mcg/mL oral drops rivaroxaban 2.5 mg tablet (Xarelto) 2.5 mg PO BID 01/21/23 03/06/25 History hydralazine 50 mg tablet 50 mg PO BID 10/23/24 03/06/25 History hydrochlorothiazide 12.5 mg capsule 12.5 mg PO DAILY 03/06/25 03/06/25 History metoprolol succinate 100 mg 50 mg PO BID 03/06/25 03/06/25 History tablet,extended release 24 hr potassium chloride 20 mEq 20 meq PO DAILY 03/06/25 03/06/25 History tablet,extended release(part/cryst) New Prescriptions to Start Prescriptions: Allergies Allergy/AdvReac Type Severity Reaction Status Date / Time codeine (CODEINE) Allergy Unknown I-RASH Verified 03/04/23 11:02 Sulfa (Sulfonamide Allergy Unknown I-RASH Verified 03/04/23 11:02 Antibiotics) (SULFA (SULFONAMIDE ANTIBIOTICS)) Results Laboratory Findings 03/06/25 04:47 03/06/25 01:25 PT/INR, D-dimer PT 12.7 seconds (10.1-12.5) H 03/06/25 01:25 INR 1.16 (0.9-1.1) H 03/06/25 01:25 D-Dimer 0.66 ug/mL (0.0-0.5) H 03/06/25 01:25 Abnormal lab findings: Abnormal Labs 03/06/25 03/06/25 03/06/25 01:17 01:25 01:39 RBC 4.15 L MCV MCH 32.5 H MPV 11.0 H Neut % (Auto) 81.5 H Lymph % (Auto) 7.7 L Lymph # (Auto) 0.6 L PT 12.7 H INR 1.16 H D-Dimer 0.66 H VBG pCO2 VBG pO2 VBG HCO3 30.5 H VBG Total CO2 32.1 H VBG O2 Saturation 73.0 H VBG Base Excess 5.7 H VBG Lactic Acid 2.1 H Potassium 2.7 L* Carbon Dioxide 32 H BUN 18 H Estimated GFR 54 L Glucose 141 H Magnesium AST 37 H Troponin I NT-Pro-B Natriuret Pep 775 H Globulin 3.8 H Parainfluenza 3 (PCR) Detected A 03/06/25 03/06/25 03/06/25 04:47 07:33 07:51 RBC 4.01 L MCV 99.5 H MCH 32.7 H MPV 10.5 H Neut % (Auto) 83.9 H Lymph % (Auto) 8.2 L Lymph # (Auto) 0.6 L PT INR D-Dimer VBG pCO2 52.4 H VBG pO2 67.9 H VBG HCO3 VBG Total CO2 30.2 H VBG O2 Saturation 93.9 H VBG Base Excess 3.1 H VBG Lactic Acid 2.1 H Potassium Carbon Dioxide BUN Estimated GFR Glucose Magnesium 1.3 L AST Troponin I 0.04 H NT-Pro-B Natriuret Pep Globulin Parainfluenza 3 (PCR) Assessment and Plan *Assessment and plan (1) Acute hypoxic respiratory failure: Status: Acute Category: Medical Code(s): J96.01 - Acute respiratory failure with hypoxia (2) Infection due to parainfluenza virus 3: Status: Acute Category: Medical Code(s): B34.8 - Other viral infections of unspecified site Plan Ms. Valdez is a 74-year-old female no significant smoking history carries a questionable diagnosis of asthma not using any inhalers at baseline presented to the ER complaining of worsening respiratory distress and pulmonary was called for further evaluation and management. Reported history of flu around September 2024. 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 Afebrile. Hemodynamically stable. No evidence of leukocytosis. Parainfluenza viral PCR panel resulted positive CTA PE protocol upon admission evidence of pulmonary embolism, suboptimal, no segmental pulmonary embolism.. Bilateral groundglass opacities. No obvious septal thickening appreciated. Very small left pleural effusion and pleural thickening. Calcified granulomas and lymphadenopathy noted. Respiratory distress on examination. Prolonged expiratory phase. Weaned to room air with saturations dropped to 87%. Plan: Advair 250 inhaler along with DuoNebs 4 times daily as needed Continue oxygen supplementation to maintain O2 saturation goal of 90% and above No need for antibiotics or steroids from pulmonary standpoint Volume optimization as per primary team and cardiology # Thank you for involving pulmonary in this patient care. Will continue to follow
--- NOTE | 2025-03-06 10:40 | EXP.CARD.CON ---
History of Present Illness History of Present Illness Consult date: 03/06/25 Requesting physician: Asif Christianson Consult reason: shortness of breath Chief complaint: SOA History of present illness: This is a 74-year-old white female who presented to the emergency department with shortness of breath. She states that she had been around her ill less than, his and child and now she has become ill. She did test positive for parainfluenza 3. She states that she had been severely short of breath and her oxygen saturations were decreasing. So she decided to come to the emergency department. She denies any chest pain or pressure. She states her shortness of breath is associated with bilateral lower extremity edema. She states that she just has not felt well. She does have a history of mitral valve disease and follows with Dr. Pena in [facility]. The patient states that she had an appointment in August was unable to make it due to snow and then was rescheduled for but missed the appointment due to to be having the flu and is now not rescheduled until March of this year. The patient had a left cardiac catheterization. [facility] in 2019 which showed mild coronary artery disease. She was given IV Bumex yesterday and states that she feels much better today. She states her breathing is almost back to baseline. Her bilateral lower extremity edema has also improved. She denies any fever, chills, nausea, vomiting or diarrhea. [facility] Disclaimer: The information contained in this section may have been updated after the patient was seen, as this information can be updated by other users. Medical History (Updated 03/06/25 @ 11:20 by Asif Christianson MD) Acute on chronic heart failure with preserved ejection fraction (HFpEF) Elevated troponin Chest pain Mitral valve stenosis, moderate Hypomagnesemia Thickened endometrium Influenza A Acute hypokalemia Congestive heart failure Morbid obesity with body mass index (BMI) of 40.0 or higher Dyspnea CAD (coronary artery disease) Remote history of stroke Hyperlipidemia Hypertension Obesity Surgical History History of hysteroscopy S/P cholecystectomy H/O tubal ligation Family History (Updated 03/06/25 @ 03:23 by Ky Floyd APRN) Mother Cancer Sister Cancer Other Coronary artery disease Social History Smoking Status: Never smoker second hand exposure: No alcohol intake: never substance use type: denies use current occupational status: retired Travel in the last 8 weeks?: None household members: spouse housing: house current occupational exposures/hazards: No Have you lived/traveled outside [place] in past 30 days?: No Contact w/someone who lives/traveled outside [place] past 30 days?: No Exposure to someone with infectious disease in past 14 days?: No Do you have a fever (greater than 100.4 F or 38 C)?: No Have you tested positive for COVID-19?: No Exposed to someone with COVID-19 in past 14 days?: No Do you have a sore throat?: No Do you have a cough?: Yes Do you have any weakness?: No Do you have any diarrhea?: No Are you experiencing any unusual bleeding?: No Do you have any muscle aches/pain?: No Do you have any abdominal pain?: No Are you experiencing loss of taste or smell?: No Review of Systems Review of Systems Review of systems:: pertinent systems reviewed and negative unless documented below Constitutional Constitutional: Reports system reviewed and no additional complaints, except as documented, Reports fatigue and Reports lethargy Eyes Eyes: Reports system reviewed and no additional complaints, except as documented ENT Ears, Nose, Mouth, and Throat: Reports system reviewed and no additional complaints, except as documented *Cardiovascular Cardiovascular: Reports system reviewed and no additional complaints, except as documented, Denies chest pain, Reports dyspnea, Reports dyspnea on exertion, Reports leg edema and Reports pedal edema *Respiratory Respiratory: Reports system reviewed and no additional complaints, except as documented, Reports dyspnea and Reports dyspnea on exertion *Gastrointestinal Gastrointestinal: Reports system reviewed and no additional complaints, except as documented *Genitourinary Genitourinary: Reports system reviewed and no additional complaints, except as documented *Musculoskeletal Musculoskeletal: Reports system reviewed and no additional complaints, except as documented Integumentary/Breasts Skin/Breast: Reports system reviewed and no additional complaints, except as documented *Neurologic Neurologic: Reports system reviewed and no additional complaints, except as documented and Reports as per HPI Psychiatric Psychiatric: Reports system reviewed and no additional complaints, except as documented Endocrine Endocrine: Reports system reviewed and no additional complaints, except as documented and Reports fatigue Hematologic/Lymphatic Hematologic/Lymphatic: Reports system reviewed and no additional complaints, except as documented Allergic/Immunologic Allergic/Immunologic: Reports system reviewed and no additional complaints, except as documented Exam Data for Last 24 hours Vital signs and Labs for Last 24 Hours: Temp Pulse Resp BP Pulse Ox O2 Del Method O2 Flow Rate 98.6 F 70 19 116/61 95 Nasal Cannula 4 03/06/25 07:27 03/06/25 08:00 03/06/25 07:27 03/06/25 07:27 03/06/25 08:00 03/06/25 09:00 03/06/25 09:00 Laboratory Results - last 24 hr 03/06/25 01:17: VBG pH 7.40, VBG pCO2 50.3, VBG pO2 38.3, VBG HCO3 30.5 H, VBG Total CO2 32.1 H, VBG O2 Saturation 73.0 H, VBG Base Excess 5.7 H, VBG Lactic Acid 2.1 H 03/06/25 01:25: WBC 7.4, RBC 4.15 L, Hgb 13.5, Hct 40.6, MCV 97.8, MCH 32.5 H, MCHC 33.3, RDW 12.9, Plt Count 168, MPV 11.0 H, Neut % (Auto) 81.5 H, Lymph % (Auto) 7.7 L, [place] % (Auto) 9.3, Eos % (Auto) 0.8, Baso % (Auto) 0.3, Neut # (Auto) 6.1, Lymph # (Auto) 0.6 L, [place] # (Auto) 0.7, Eos # (Auto) 0.1, Baso # (Auto) 0.0, PT 12.7 H, INR 1.16 H, D-Dimer 0.66 H, Sodium 137, Potassium 2.7 L*, Chloride 99, Carbon Dioxide 32 H, Anion Gap 8.7, BUN 18 H, Creatinine 1.00, Estimated Creat Clear 74, Estimated GFR 54 L, Est GFR ( Amer) 66, Glucose 141 H, Lactate 1.4, Calcium 10.1, Total Bilirubin 0.7, AST 37 H, ALT 19, Alkaline Phosphatase 72, Troponin I < 0.01, NT-Pro-B Natriuret Pep 775 H, Total Protein 8.1, Albumin 4.3, Globulin 3.8 H, Albumin/Globulin Ratio 1.1 03/06/25 01:39: Chlamy pneumoniae PCR Not detected, Adenovirus (PCR) Not detected, B. pertussis DNA (PCR) Not detected, Coronavirus OC43 (PCR) Not detected, Coronavirus HKU1 (PCR) Not detected, Coronavirus 229E (PCR) Not detected, SARS-CoV-2 (PCR) Not detected, Coronavirus NL63 (PCR) Not detected, Human Metapneumovir PCR Not detected, Influenza A (H1) PCR Not detected, Influ A (H1N1/09) PCR Not detected, Influenza A (H3) PCR Not detected, Influenza Type A (PCR) Not detected, Influenza Type B (PCR) Not detected, M. pneumoniae (PCR) Not detected, Parainfluenza 1 (PCR) Not detected, Parainfluenza 2 (PCR) Not detected, Parainfluenza 3 (PCR) Detected A, Parainfluenza 4 (PCR) Not detected, RSV (PCR) Not detected, Entero/Rhino (PCR) Not detected 03/06/25 04:47: WBC 7.6, RBC 4.01 L, Hgb 13.1, Hct 39.9, MCV 99.5 H, MCH 32.7 H, MCHC 32.8, RDW 12.9, Plt Count 177, MPV 10.5 H, Neut % (Auto) 83.9 H, Lymph % (Auto) 8.2 L, [place] % (Auto) 7.2, Eos % (Auto) 0.1, Baso % (Auto) 0.3, Neut # (Auto) 6.3, Lymph # (Auto) 0.6 L, [place] # (Auto) 0.5, Eos # (Auto) 0.0, Baso # (Auto) 0.0, Lactate 1.2, Magnesium 1.3 L, Troponin I 0.03 03/06/25 07:33: Troponin I 0.04 H 03/06/25 07:51: VBG pH 7.36, VBG pCO2 52.4 H, VBG pO2 67.9 H, VBG HCO3 28.6, VBG Total CO2 30.2 H, VBG O2 Saturation 93.9 H, VBG Base Excess 3.1 H, VBG Lactic Acid 2.1 H I & O for Last 24 hours: Intake & Output 03/03/25 03/04/25 03/05/25 03/06/25 23:59 23:59 23:59 23:59 Intake Total 360 / 360 Output Total 0 / 0 Balance 360 / 360 Weight 203 lb 8 oz Narrative: EKG is sinus rhythm with incomplete right bundle branch block and nonspecific ST/T wave abnormalities Constitutional Constitutional: no acute distress and obese *Routine HEENT Exam Head: Present normocephalic and atraumatic ENT: Present mucous membranes moist *Routine Neck Exam Neck: Present supple, full ROM and normal carotid upstroke; Absent JVD, carotid bruit or lymphadenopathy *Routine Respiratory Exam Respiratory: Present CTA bilaterally, normal respiratory effort, able to speak in complete sentences and symmetric chest movement *Routine Cardiovascular Exam Cardiovascular: Present RRR, Normal S1, Normal S2 and murmur; Absent gallop *Routine Abdominal Exam Abdominal: Present soft and normoactive bowel sounds; Absent tenderness, distended or organomegaly *Routine Extremities Exam Extremities: Present full ROM, pulses intact and normal capillary refill; Absent cyanosis, clubbing or edema *Routine Skin Exam Skin: Present intact and warm; Absent erythema *Routine Neurological Exam Neurological: Present alert, oriented X3 and CN II-XII intact; Absent sensory deficit or motor deficit Routine Psychiatric Exam Psychiatric: Present normal affect Meds Home Medications and Allergies Home Medications ?Medication ?Instructions ?Recorded ?Confirmed ?Type aspirin 81 mg tablet,delayed 81 mg PO DAILY 06/26/20 03/06/25 History release levothyroxine 50 mcg tablet 50 mcg PO DAILY 06/26/20 03/06/25 History lovastatin 40 mg tablet 40 mg PO HS 06/26/20 03/06/25 History omega-3 fatty acids-fish oil 340 1 each PO DAILY 06/26/20 03/06/25 History mg-1,000 mg capsule cyanocobalamin (vitamin B-12) 1,000 mcg PO DAILY 08/09/20 03/06/25 History 1,000 mcg/mL oral drops rivaroxaban 2.5 mg tablet (Xarelto) 2.5 mg PO BID 01/21/23 03/06/25 History hydralazine 50 mg tablet 50 mg PO BID 10/23/24 03/06/25 History hydrochlorothiazide 12.5 mg capsule 12.5 mg PO DAILY 03/06/25 03/06/25 History metoprolol succinate 100 mg 50 mg PO BID 03/06/25 03/06/25 History tablet,extended release 24 hr potassium chloride 20 mEq 20 meq PO DAILY 03/06/25 03/06/25 History tablet,extended release(part/cryst) New Prescriptions to Start Prescriptions: Allergies Allergy/AdvReac Type Severity Reaction Status Date / Time codeine (CODEINE) Allergy Unknown I-RASH Verified 03/04/23 11:02 Sulfa (Sulfonamide Allergy Unknown I-RASH Verified 03/04/23 11:02 Antibiotics) (SULFA (SULFONAMIDE ANTIBIOTICS)) Assessment and Plan *Assessment and plan (1) Elevated troponin: Status: Acute Category: Medical Code(s): R79.89 - Other specified abnormal findings of blood chemistry (2) Acute on chronic heart failure with preserved ejection fraction (HFpEF): Status: Acute Category: Medical Code(s): I50.33 - Acute on chronic diastolic (congestive) heart failure (3) Diastolic dysfunction: Status: Chronic Category: Medical Code(s): I51.89 - Other ill-defined heart diseases (4) CAD (coronary artery disease): Status: Chronic Qualifiers: Associated angina: without angina Coronary Disease-Associated Artery/Lesion type: [place] artery [place] vs. transplanted heart: [place] heart Qualified Code(s): I25.10 - Atherosclerotic heart disease of [place] coronary artery without angina pectoris Category: Medical Code(s): I25.10 - Atherosclerotic heart disease of [place] coronary artery without angina pectoris (5) Obesity: Status: Acute Qualifiers: Body mass index: BMI 40.0-44.9 Obesity classification: adult class 3 (BMI >= 40) Obesity type: due to excess calories Serious obesity comorbidity presence: with serious comorbidity Qualified Code(s): E66.01 - Morbid (severe) obesity due to excess calories; Z68.41 - Body mass index [BMI]40.0-44.9, adult Category: Medical Code(s): E66.9 - Obesity, unspecified (6) Hypertension: Status: Chronic Qualifiers: Hypertension type: essential hypertension Qualified Code(s): I10 - Essential (primary) hypertension Category: Medical Code(s): I10 - Essential (primary) hypertension (7) Hyperlipidemia: Status: Chronic Qualifiers: Hyperlipidemia type: unspecified Qualified Code(s): E78.5 - Hyperlipidemia, unspecified Category: Medical Code(s): E78.5 - Hyperlipidemia, unspecified (8) Cardiac murmur, unspecified: Status: Acute Category: Medical Code(s): R01.1 - Cardiac murmur, unspecified (9) Infection due to parainfluenza virus 3: Status: Acute Category: Medical Code(s): B34.8 - Other viral infections of unspecified site Plan Plan: 1. The patient was admitted to the hospital and found to have acute on chronic HFpEF. Her BNP is elevated. Will diurese the patient with Bumex 1 mg IV twice daily for continued diuresis. 2. Will obtain an echocardiogram to evaluate LV function due to her shortness of breath and HFpEF. She does have a history of mitral valve disease. She states that she follows with a hospital scientist in [place] but has missed her last several follow-up appointments and has not scheduled to be seen there again until March to determine whether she needs a valve replacement. 3. The patient does have an elevated troponin consistent with a non-STEMI. This is most likely a type II non-STEMI from her acute on chronic HFpEF and parainfluenza infection. Once she has recovered from her parainfluenza and CHF exacerbation then she will need an outpatient ischemic evaluation. She does have a history of known coronary artery disease which was mild in 2019. 4. Continue aspirin 81 mg daily. 5. Her blood pressure is well-controlled. Continue metoprolol. Will hold hydrochlorothiazide and hydralazine for now as her blood pressure is stable on metoprolol. 6. Her LDL goal is less than 55. Will get a liver and lipid panel in the morning. Resume lovastatin. 7. The patient's potassium was low on admission. This has been replaced per the hospitalist. 8. Further recommendations will be made pending the patient's response to treatment and the results of her echocardiogram today. Thank you for the opportunity to participate in the care of this patient. All recommendations and orders are per Dr. Alvarez. Addendum: Echo shows: Normal biventricular systolic function. Mild RV dilation. Biatrial dilation. 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 Mean MV gradient is 14 mmHg (HR 80 bpm)] Mild (KAMLA by continuity equation is 1.9 cm???. Peak velocity 2.7 m/s. Mean AV gradient 18 mmHg. Max AV gradient 30 mmHg). Borderline dilated ascending aorta, measuring 3.7 cm in diameter. In the setting of significant rheumatic MS, early referral to interventional cardiology vs. surgical evaluation is suggested. Patient will need to be transferred to a tertiary care facility for interventional cardiology and surgical evaluation for her severe mitral stenosis.
--- NOTE | 2025-03-06 10:55 | PC.NURSE ---
New IV inserted into left forearm due to old IV coming out of arm. New IV is 20 g in left forearm, pt tolerated well.
--- NOTE | 2025-03-06 17:48 | P.DS_ITS ---
General Admission date:: 03/06/25 Discharge date: 03/06/25 HPI HPI HPI: Mrs. Valdez is a 74-year-old female whose son and child have all been ill she now has become ill. She has been having difficulty breathing O2 sats have begun to decrease. So she is come to the emergency room. Patient is noted as being obese but noting that weight in 2019 was 244 pounds she is now down to 210.. She is a non-smoker. Patient though has a significant cardiac history and sees Dr. Mark in [place], and Dr. Colon for her renal function in [place]. The patient was supposed to have seen her doctors in August but was unable to due to snow, then also I believe in October or late September but she had the flu. So she has not seen her specialist since before August 2024. She notes that she normally has very large legs with edema she is actually on spironolactone at this time.. On coming into the emergency room patient also noted as having low potassium. 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 Also an old records found that she has pulmonary hypertension. In [address] Damon and had a catheterization, noting no blockages of any significance found.. Presently do not have records to her [place] providers. Oxygen saturations decreased to is much as 81%. Patient noted that normally she is able to get up walk do what ever she needs to. Now she would have difficulty walking more than [address] scan which shows early meant of possible left upper lung infection, her present vital signs cardiac history with this edema and talking with the ER physician do believe that she needs to be admitted. Patient is receiving replacement potassium at this time for hypokalemia, will monitor oxygen saturation nasal cannula be adjusted to keep O2 sats greater than 93% start breathing treatments. Have consulted cardiology and pulmonology ordered cardiac echo to determine ejection fraction which in 2019 was normal. Patient will be continually monitored on court recording monitor and pulse ox.. Noting that the ER physician did speak with Dr. Damon upon the patient was being evaluated in the ER Hospital Course Hospital Course Hospital Course: 74-year-old female who presented with shortness of breath, peripheral edema, concern for volume overload and NSTEMI. On evaluation, troponin detectable and found to be positive for parainfluenza virus along with frankly volume overloaded. Responded to diuresis. Improving oxygen requirement. Workup by cardiology and pulmonology during admission. Echo showed severe mitral stenosis. Cardiology recommended transfer to tertiary center for further evaluation. Patient graciously accepted by [facility] for further management. Stable to discharge at this time. Problems addressed as follows: Acute on chronic HFpEF Type II NSTEMI Severe mitral stenosis -Cardiology consulted. Echo was obtained. 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 MVA by PHT method is 1.2 cm?. Gradient of 14 mmHg. After discussion with cardiology, recommend transfer to tertiary center for evaluation for mitral valve replacement in light of her HFpEF and NSTEMI with severe MS. Contacted [facility] who accepted patient for further management. Continued aggressive diuresis with Bumex 1 mg IV twice daily. Had good response, negative volume status of at least 2 L since admission. Troponin elevated but stable at 0.04-0.05. Continue aspirin 81 mg daily. Holding home HCTZ and hydralazine. Continued home metoprolol succinate 50 mg twice daily. Parainfluenza infection Acute hypoxemic respiratory failure - Pulmonology consulted due to respiratory distress. Patient positive for parainfluenza virus. Recommend continuing Advair 250 mg inhaler along with DuoNebs 4 times a day as needed. Continue supplemental oxygen for goal sats greater 90%. Able to wean from 6 L on admission to 2 L by time of discharge. No need for antibiotics or steroids due to respiratory illness from viral etiology. Hypothyroid: Continue levothyroxine 50 mcg daily Obesity complicates all aspects of her care Pulmonology consulted due to respiratory distress. Patient positive for parainfluenza virus. Recommend continuing Advair 250 mg inhaler along with DuoNebs 4 times a day as needed. Continue supplemental oxygen for goal sats greater 90%. Able to wean from 6 L on admission to 2 L by time of discharge. No need for antibiotics or steroids due to respiratory illness from viral etiology. Total time spent on discharge 45 minutes in counseling, documentation, chart review, and direct care with patient. Exam Data for Last 24 hours Vital signs and Labs for Last 24 Hours: Temp Pulse Resp BP Pulse Ox O2 Del Method O2 Flow Rate 98.4 F 62 20 116/62 94 L Nasal Cannula 1 03/06/25 16:00 03/06/25 16:00 03/06/25 16:00 03/06/25 16:00 03/06/25 16:00 03/06/25 17:00 03/06/25 17:00 Laboratory Results - last 24 hr 03/06/25 01:17: VBG pH 7.40, VBG pCO2 50.3, VBG pO2 38.3, VBG HCO3 30.5 H, VBG Total CO2 32.1 H, VBG O2 Saturation 73.0 H, VBG Base Excess 5.7 H, VBG Lactic Acid 2.1 H 03/06/25 01:25: WBC 7.4, RBC 4.15 L, Hgb 13.5, Hct 40.6, MCV 97.8, MCH 32.5 H, MCHC 33.3, RDW 12.9, Plt Count 168, MPV 11.0 H, Neut % (Auto) 81.5 H, Lymph % (Auto) 7.7 L, [place] % (Auto) 9.3, Eos % (Auto) 0.8, Baso % (Auto) 0.3, Neut # (Auto) 6.1, Lymph # (Auto) 0.6 L, [place] # (Auto) 0.7, Eos # (Auto) 0.1, Baso # (Auto) 0.0, PT 12.7 H, INR 1.16 H, D-Dimer 0.66 H, Sodium 137, Potassium 2.7 L*, Chloride 99, Carbon Dioxide 32 H, Anion Gap 8.7, BUN 18 H, Creatinine 1.00, Est imated Creat Clear 74, Estimated GFR 54 L, Est GFR ( Amer) 66, Glucose 141 H, Lactate 1.4, Calcium 10.1, Total Bilirubin 0.7, AST 37 H, ALT 19, Alkaline Phosphatase 72, Troponin I < 0.01, NT-Pro-B Natriuret Pep 775 H, Total Protein 8.1, Albumin 4.3, Globulin 3.8 H, Albumin/Globulin Ratio 1.1 03/06/25 01:39: Chlamy pneumoniae PCR Not detected, Adenovirus (PCR) Not detected, B. pertussis DNA (PCR) Not detected, Coronavirus OC43 (PCR) Not detected, Coronavirus HKU1 (PCR) Not detected, Coronavirus 229E (PCR) Not detected, SARS-CoV-2 (PCR) Not detected, Coronavirus NL63 (PCR) Not detected, Human Metapneumovir PCR Not detected, Influenza A (H1) PCR Not detected, Influ A (H1N1/09) PCR Not detected, Influenza A (H3) PCR Not detected, Influenza Type A (PCR) Not detected, Influenza Type B (PCR) Not detected, M. pneumoniae (PCR) Not detected, Parainfluenza 1 (PCR) Not detected, Parainfluenza 2 (PCR) Not detected, Parainfluenza 3 (PCR) Detected A, Parainfluenza 4 (PCR) Not detected, RSV (PCR) Not detected, Entero/Rhino (PCR) Not detected 03/06/25 04:47: WBC 7.6, RBC 4.01 L, Hgb 13.1, Hct 39.9, MCV 99.5 H, MCH 32.7 H, MCHC 32.8, RDW 12.9, Plt Count 177, MPV 10.5 H, Neut % (Auto) 83.9 H, Lymph % (Auto) 8.2 L, [place] % (Auto) 7.2, Eos % (Auto) 0.1, Baso % (Auto) 0.3, Neut # (Auto) 6.3, Lymph # (Auto) 0.6 L, [place] # (Auto) 0.5, Eos # (Auto) 0.0, Baso # (Auto) 0.0, Lactate 1.2, Magnesium 1.3 L, Troponin I 0.03 03/06/25 07:33: Troponin I 0.04 H 03/06/25 07:51: VBG pH 7.36, VBG pCO2 52.4 H, VBG pO2 67.9 H, VBG HCO3 28.6, VBG Total CO2 30.2 H, VBG O2 Saturation 93.9 H, VBG Base Excess 3.1 H, VBG Lactic Acid 2.1 H I & O for Last 24 hours: Intake & Output 03/03/25 03/04/25 03/05/25 03/06/25 23:59 23:59 23:59 23:59 Intake Total 720 / 720 Output Total 800 / 800 Balance -80 / -80 Weight 92.306 kg Constitutional Constitutional: mild distress, obese and chronically ill appearing *Routine HEENT Exam Head: Present normocephalic and atraumatic Eye: Present EOMI and PERRL ENT: Present mucous membranes moist *Routine Neck Exam Neck: Present supple, full ROM and normal carotid upstroke; Absent JVD, carotid bruit or lymphadenopathy *Routine Respiratory Exam Respiratory: Present normal respiratory effort and able to speak in complete sentences; Absent rhonchi or wheezes *Routine Cardiovascular Exam Cardiovascular: Present RRR, Normal S1, Normal S2 and murmur; Absent gallop *Routine Abdominal Exam Abdominal: Present soft and normoactive bowel sounds; Absent tenderness, distended or organomegaly *Routine Rectal Exam Patient deferred: visual exam *Routine Exam Patient deferred: external exam *Routine Extremities Exam Extremities: Present edema (2+ to knees), full ROM, pulses intact and normal capillary refill; Absent cyanosis or clubbing *Routine Skin Exam Skin: Present intact and warm; Absent erythema *Routine Neurological Exam Neurological: Present alert, oriented X3, CN II-XII intact and moving all extre mities; Absent sensory deficit, motor deficit or altered mental status Routine Psychiatric Exam Psychiatric: Present normal affect Results Data Completed and Pending Labs on day of discharge: Labs from last 24 hours 03/06/25 03/06/25 03/06/25 07:51 07:33 04:47 WBC 7.6 RBC 4.01 L Hgb 13.1 Hct 39.9 MCV 99.5 H MCH 32.7 H MCHC 32.8 RDW 12.9 Plt Count 177 MPV 10.5 H Neut % (Auto) 83.9 H Lymph % (Auto) 8.2 L Clayton % (Auto) 7.2 Eos % (Auto) 0.1 Baso % (Auto) 0.3 Neut # (Auto) 6.3 Lymph # (Auto) 0.6 L Clayton # (Auto) 0.5 Eos # (Auto) 0.0 Baso # (Auto) 0.0 PT INR D-Dimer VBG pH 7.36 VBG pCO2 52.4 H VBG pO2 67.9 H VBG HCO3 28.6 VBG Total CO2 30.2 H VBG O2 Saturation 93.9 H VBG Base Excess 3.1 H VBG Lactic Acid 2.1 H Sodium Potassium Chloride Carbon Dioxide Anion Gap BUN Creatinine Estimated Creat Clear Estimated GFR Est GFR ( Amer) Glucose Lactate 1.2 Calcium Magnesium 1.3 L Total Bilirubin AST ALT Alkaline Phosphatase Troponin I 0.04 H 0.03 NT-Pro-B Natriuret Pep Total Protein Albumin Globulin Albumin/Globulin Ratio Chlamy pneumoniae PCR Adenovirus (PCR) B. pertussis DNA (PCR) Coronavirus OC43 (PCR) Coronavirus HKU1 (PCR) Coronavirus 229E (PCR) SARS-CoV-2 (PCR) Coronavirus NL63 (PCR) Human Metapneumovir PCR Influenza A (H1) PCR Influ A (H1N1/09) PCR Influenza A (H3) PCR Influenza Type A (PCR) Influenza Type B (PCR) M. pneumoniae (PCR) Parainfluenza 1 (PCR) Parainfluenza 2 (PCR) Parainfluenza 3 (PCR) Parainfluenza 4 (PCR) RSV (PCR) Entero/Rhino (PCR) 03/06/25 03/06/25 03/06/25 01:39 01:25 01:17 WBC 7.4 RBC 4.15 L Hgb 13.5 Hct 40.6 MCV 97.8 MCH 32.5 H MCHC 33.3 RDW 12.9 Plt Count 168 MPV 11.0 H Neut % (Auto) 81.5 H Lymph % (Auto) 7.7 L Clayton % (Auto) 9.3 Eos % (Auto) 0.8 Baso % (Auto) 0.3 Neut # (Auto) 6.1 Lymph # (Auto) 0.6 L Clayton # (Auto) 0.7 Eos # (Auto) 0.1 Baso # (Auto) 0.0 PT 12.7 H INR 1.16 H D-Dimer 0.66 H VBG pH 7.40 VBG pCO2 50.3 VBG pO2 38.3 VBG HCO3 30.5 H VBG Total CO2 32.1 H VBG O2 Saturation 73.0 H VBG Base Excess 5.7 H VBG Lactic Acid 2.1 H Sodium 137 Potassium 2.7 L* Chloride 99 Carbon Dioxide 32 H Anion Gap 8.7 BUN 18 H Creatinine 1.00 Estimated Creat Clear 74 Estimated GFR 54 L Est GFR ( Amer) 66 Glucose 141 H Lactate 1.4 Calcium 10.1 Magnesium Total Bilirubin 0.7 AST 37 H ALT 19 Alkaline Phosphatase 72 Troponin I < 0.01 NT-Pro-B Natriuret Pep 775 H Total Protein 8.1 Albumin 4.3 Globulin 3.8 H Albumin/Globulin Ratio 1.1 Chlamy pneumoniae PCR Not detected Adenovirus (PCR) Not detected B. pertussis DNA (PCR) Not detected Coronavirus OC43 (PCR) Not detected Coronavirus HKU1 (PCR) Not detected Coronavirus 229E (PCR) Not detected SARS-CoV-2 (PCR) Not detected Coronavirus NL63 (PCR) Not detected Human Metapneumovir PCR Not detected Influenza A (H1) PCR Not detected Influ A (H1N1/09) PCR Not detected Influenza A (H3) PCR Not detected Influenza Type A (PCR) Not detected Influenza Type B (PCR) Not detected M. pneumoniae (PCR) Not detected Parainfluenza 1 (PCR) Not detected Parainfluenza 2 (PCR) Not detected Parainfluenza 3 (PCR) Detected A Parainfluenza 4 (PCR) Not detected RSV (PCR) Not detected Entero/Rhino (PCR) Not detected DS: Diagnosis Discharge Diagnosis (1) Elevated troponin: Status: Acute Code(s): R79.89 - Other specified abnormal findings of blood chemistry (2) Acute on chronic heart failure with preserved ejection fraction (HFpEF): Status: Acute Code(s): I50.33 - Acute on chronic diastolic (congestive) heart failure (3) Diastolic dysfunction: Status: Chronic Code(s): I51.89 - Other ill-defined heart diseases (4) CAD (coronary artery disease): Status: Chronic Code(s): I25.10 - Atherosclerotic heart disease of [place] coronary artery without angina pectoris Qualifiers: Associated angina: without angina Coronary Disease-Associated Artery/Lesion type: [place] artery [place] vs. transplanted heart: [place] heart Qualified Code(s): I25.10 - Atherosclerotic heart disease of [place] coronary artery without angina pectoris (5) Obesity: Status: Acute Code(s): E66.9 - Obesity, unspecified Qualifiers: Body mass index: BMI 40.0-44.9 Obesity classification: adult class 3 (BMI >= 40) Obesity type: due to excess calories Serious obesity comorbidity presence: with serious comorbidity Qualified Code(s): E66.01 - Morbid (severe) obesity due to excess calories; Z68.41 - Body mass index [BMI]40.0-44.9, adult (6) Hypertension: Status: Chronic Code(s): I10 - Essential (primary) hypertension Qualifiers: Hypertension type: essential hypertension Qualified Code(s): I10 - Essential (primary) hypertension (7) Hyperlipidemia: Status: Chronic Code(s): E78.5 - Hyperlipidemia, unspecified Qualifiers: Hyperlipidemia type: unspecified Qualified Code(s): E78.5 - Hyperlipidemia, unspecified (8) Cardiac murmur, unspecified: Status: Acute Code(s): R01.1 - Cardiac murmur, unspecified (9) Infection due to parainfluenza virus 3: Status: Acute Code(s): B34.8 - Other viral infections of unspecified site (10) NSTEMI (non-ST elevated myocardial infarction): Status: Acute Code(s): I21.4 - Non-ST elevation (NSTEMI) myocardial infarction Problem details: Type II due to underlying respiratory infection (11) Severe mitral stenosis by prior echocardiogram: Status: Acute Code(s): I05.0 - Rheumatic mitral stenosis Meds Home Medications and Allergies Home Medications ?Medication ?Instructions ?Recorded ?Confirmed ?Type aspirin 81 mg tablet,delayed 81 mg PO DAILY 06/26/20 0 03/06/25 History release levothyroxine 50 mcg tablet 50 mcg PO DAILY 06/26/20 0 03/06/25 History lovastatin 40 mg tablet 40 mg PO HS 06/26/20 5 History omega-3 fatty acids-fish oil 340 1 each PO DAILY 06/2603/06/25 History mg-1,000 mg capsule cyanocobalamin (vitamin B-12) 1,000 mcg PO DAILY 08/0903/06/25 History 1,000 mcg/mL oral drops rivaroxaban 2.5 mg tablet (Xarelto) 2.5 mg PO BID 01/1003/06/25 History Held on 03/06/25. Instructions: Held during admission, defer to accepting team hydralazine 50 mg tablet 50 mg PO BID 10/23/24 History Held on 03/06/25. Instructions: Held during admission, defer to accepting team bumetanide 0.25 mg/mL injection 1 mg (4 mL) IV BIDL #0 mL 03/06/25 Rx solution fluticasone 250 mcg-salmeterol 50 1 inh inhalation BID RT #0 ea 03/06/25 Rx mcg/dose blistr powdr for inhalation (Advair Diskus) hydrochlorothiazide 12.5 mg capsule 12.5 mg PO DAILY 0 03/06/25 03/06/25 History Held on 03/06/25. Instructions: Held during admission, defer to accepting team ipratropium 0.5 mg-albuterol 3 mg 3 ml inhalation Q6HP PRN Shortness 03/06/25 Rx (2.5 mg base)/3 mL nebulization Of Breath #0 mL soln metoprolol succinate 100 mg 50 mg PO BID 03/06/2502/18 History tablet,extended release 24 hr potassium chloride 20 mEq 20 meq PO DAILY 03/06/25 History tablet,extended release(part/cryst) New Prescriptions to Start Prescriptions: Allergies Allergy/AdvReac Type Severity Reaction Status Date / Time codeine (CODEINE) Allergy Unknown I-RASH Verified 03/04/23 11:02 Sulfa (Sulfonamide Allergy Unknown I-RASH Verified 03/04/23 11:02 Antibiotics) (SULFA (SULFONAMIDE ANTIBIOTICS)) Discharge Plan Disposition Patient Disposition: Xfer Short-Term Hosp Condition: Fair Discharge Order Discharge Orders: Discharge Order (Routine); Ordered 03/06/25 Ordered By: Asif Christianson Follow up Plan Prescriptions/Medication Reconciliation: New fluticasone propion-salmeterol [Advair Diskus] 250-50 mcg/dose Blister With Device 1 inh inhalation BIDRT Qty: 0 0RF ipratropium-albuterol 0.5 mg-3 mg(2.5 mg base)/3 mL Solution For Nebulization 3 ml inhalation Q6HP PRN (Reason: Shortness Of Breath) Qty: 0 0RF bumetanide 0.25 mg/mL Solution 1 mg IV BIDL Qty: 0 0RF Continued cyanocobalamin (vitamin B-12) 1,000 mcg/mL drops 1,000 mcg PO DAILY metoprolol succinate 100 mg tablet extended release 24 hr 50 mg PO BID Patient Comments: TAKE 1/2 (ONE-HALF) TABLET BY MOUTH TWICE DAILY potassium chloride 20 mEq tablet,ER particles/crystals 20 meq PO DAILY lovastatin 40 MG tablet 40 mg PO HS levothyroxine 50 MCG tablet 50 mcg PO DAILY aspirin 81 MG tablet,delayed release (DR/EC) 81 mg PO DAILY omega-3 fatty acids-fish oil 1 EACH capsule 1 each PO DAILY Held Xarelto 2.5 mg tablet 2.5 mg PO BID Hold Instructions: Held during admission, defer to accepting team hydralazine 50 mg Tablet 50 mg PO BID Hold Instructions: Held during admission, defer to accepting team hydrochlorothiazide 12.5 mg capsule 12.5 mg PO DAILY Hold Instructions: Held during admission, defer to accepting team Patient Comments: TAKE 1 CAPSULE BY MOUTH ONCE DAILY NEEDED Problem Reconciliation Problems Reviewed?: Yes Patient Discharge Instructions ACTIVITY: Continue current activity DIET: continue same diet Patient Instructions: DI for Respiratory Failure, Hypokalemia Print Language: Cymro Providers Primary Care Provider: Leticia Gonzalez Admit Provider: Asif Christianson Attending Provider: Asif Christianson
--- NOTE | 2025-03-06 18:07 | PC.NURSE ---
patient is a/o x4, currently on 1 LNC tolerating well with o2 sats above 90%. currently sitting up in bed eating dinner, tolerating diet. PW in place. awaiting transfer to [facility] at this time. no c/o pain or SOB. call light within reach. no further requests at this time.
[2025-03-06 18:13] LABS: Chloride 97 mmol/L (98-107)
[2025-03-06 18:14] LABS: Sodium 136 mmol/L (136-145)
[2025-03-06 18:17] LABS: Anion Gap 7.9 mEq/L (5-15); Blood Urea Nitrogen 16 mg/dl (7-17); Calcium 8.9 mg/dl (8.4-10.2); Carbon Dioxide 34 mmol/L (22.0-30.0); Creatinine Clearance Estimated 65 mL/min (50-200); Estimated Glomerular Filt Rate 49 ml/min (>60); GFR (African American) 59 ML/MIN (>60); Glucose 130 mg/dl (74-100)
[2025-03-06 18:39] LABS: Potassium 2.9 mmoL/L (3.5-5.1)
[2025-03-06] MEDS: POTASSIUM CHLORIDE 20MEQ TAB 40 MEQ PO (18:49)
--- NOTE | 2025-03-06 19:12 | PC.NURSE ---
notified MD of patients potassium level being 2.9. new orders received.
[2025-03-06] MEDS: RIVAROXABAN 2.5MG TABLET 2.5 MG PO (20:40)
[2025-03-06] MEDS: PRAVASTATIN 40MG TAB 40 MG PO (20:40)
--- NOTE | 2025-03-06 21:13 | PC.NURSE ---
Patient left floor with EMS at 21:11.
== END 2025-03-06 21:11 | disposition short-term general hospital (02) ==
LOC: ER 01:14 → 2ND 02:32
PROVIDERS: Nurse Practitioner Family; Admitting Provider Internal Medicine Adolescent Medicine; Emergency Provider Emergency Medicine; PCP Family Medicine; Visit Provider Internal Medicine Adolescent Medicine
DX: J96.01 Acute respiratory failure with hypoxia (principal); I11.0 Hypertensive heart disease with heart failure; I50.33 Acute on chronic diastolic (congestive) heart failure; I21.4 Non-ST elevation (NSTEMI) myocardial infarction; I25.10 Atherosclerotic heart disease of native coronary artery without angina pectoris; E66.01 Morbid (severe) obesity due to excess calories; E78.5 Hyperlipidemia, unspecified; I05.0 Rheumatic mitral stenosis; B34.8 Other viral infections of unspecified site; J18.9 Pneumonia, unspecified organism; E87.6 Hypokalemia; N28.9 Disorder of kidney and ureter, unspecified; I45.10 Unspecified right bundle-branch block; E03.9 Hypothyroidism, unspecified; Z68.34 Body mass index [BMI] 34.0-34.9, adult; Z79.890 Hormone replacement therapy; Z79.82 Long term (current) use of aspirin; Z79.899 Other long term (current) drug therapy; Z88.2 Allergy status to sulfonamides; Z88.5 Allergy status to narcotic agent; Z82.49 Family history of ischemic heart disease and other diseases of the circulatory system; Z79.51 Long term (current) use of inhaled steroids; Z79.01 Long term (current) use of anticoagulants
CPT/HCPCS: 0223U; 36415; 71275; 80048; 80053; 82803; 83605; 83735; 83880; 84484; 85025; 85378; 85610; 87040; 87633; 93005; 93306; 94640; 94760; 94761; 96361; 96365; 96372; 96375; 96376; 99285; G0378; J0696; J1650; J1939; J2405; J2919; J3475; J3480; Q9957; Q9967